=== PATIENT | female | born 1935 | race Caucasian/White ===

== ENCOUNTER 2018-09-21 15:17 | Emergency (ER) | payer OTHER ==
[2018-09-21 17:11] LABS: Basophils % 0.7 % (0-1.3); Hematocrit 30.5 % (36.0-45.0); Lymphocytes % 25.6 % (15.3-44.8); MPV 7.5 fL (7.6-11.3); RBC Red Blood Cell Count 3.49 M/uL (3.86-4.86)
[2018-09-21 17:35] LABS: Potassium 3.8 mmol/L (3.5-5.1)
--- NOTE | 2018-09-21 18:22 | RAD REPORT ---
EXAM DESCRIPTION: Cm Irving And Prashanth (2 Views)09/21/2018 6:08 pm CLINICAL HISTORY: Cough COMPARISON: 2017 FINDINGS: Lungs are moderately hyperaerated The lungs appear clear of acute infiltrate. The heart is normal size IMPRESSION: COPD without visualization acute abnormality
--- NOTE | 2018-09-21 18:24 | ER ---
Nurse's Notes [facility] Name: Camilla Hutchison Age: 83 yrs Sex: Female : 1935 Arrival Date: 09/21/2018 Time: 15:31 Bed 13 Private MD: Jin Schwarz Diagnosis: Influenza due to certain identified influenza viruses-Influenza B Presentation: 09/21 15:40 Presenting complaint: SOB, chills, and night sweats x 4 days. Transition of care: hb patient was not received from another setting of care. Onset of symptoms was September 18, 2018. Risk Assessment: Do you want to hurt yourself or someone else? Patient reports no desire to harm self or others. Initial Sepsis Screen: Does the patient meet any 2 criteria? No. Patient's initial sepsis screen is negative. Does the patient have a suspected source of infection? No. Patient's initial sepsis screen is negative. Care prior to arrival: None. 15:40 Method Of Arrival: Ambulatory hb 15:40 Acuity: EUGENIO 3 hb Triage Assessment: 16:38 General: Appears in no apparent distress. uncomfortable, Behavior is calm, cooperative, hj appropriate for age. Respiratory: Reports shortness of breath Onset: The symptoms/episode began/occurred the patient has mild shortness of breath. Historical: - Allergies: 15:42 Iodinated Contrast Media - IV Dye; hb 15:42 Levaquin; hb 15:42 PENICILLINS; hb 15:42 Sulfa (Sulfonamide Antibiotics); hb - Home Meds: 17:00 bp medication she takes only if sbp > 145 [Active]; hj - PMHx: 17:00 Hypertension; hj - PSHx: 17:00 Unable to obtain; hj - Immunization history:: Adult Immunizations up to date. - Social history:: Smoking status: Patient/guardian denies using tobacco, Patient/guardian denies using alcohol. - Ebola Screening: : Patient negative for fever greater than or equal to 101.5 degrees Fahrenheit, and additional compatible Ebola Virus Disease symptoms Patient denies exposure to infectious person Patient denies travel to an Ebola-affected area in the 21 days before illness onset. Screenin:38 Abuse screen: Denies threats or abuse. Denies injuries from another. Nutritional hj screening: No deficits noted. Tuberculosis screening: No symptoms or risk factors identified. Fall Risk None identified. Assessment: 16:38 Pain: Denies pain. Cardiovascular: Rhythm is. Respiratory: Airway is patent Respiratory hj effort is even, unlabored, Respiratory pattern is regular, symmetrical, 17:18 Reassessment: Patient and/or family updated on plan of care and expected duration. Pain hj level reassessed. Patient is alert, oriented x 3, equal unlabored respirations, skin warm/dry/pink. awaiting results and POC;. 18:17 Reassessment: Patient and/or family updated on plan of care and expected duration. Pain hj level reassessed. Patient is alert, oriented x 3, equal unlabored respirations, skin warm/dry/pink. awaiting POC; Patient states feeling better. Patient states symptoms have improved. Vital Signs: 15:41 BP 183 / 69; Pulse 87; Resp 20; Temp 97.8; Pulse Ox 100% on R/A; Weight 59.87 kg; hb Height 5 ft. 3 in. (160.02 cm); Pain 0/10; 17:00 BP 182 / 95; Pulse 81; Resp 18; Pulse Ox 100% on R/A; hj 18:16 BP 178 / 70; Pulse 84; Resp 18; Pulse Ox 100% on R/A; hj 15:41 Body Mass Index 23.38 (59.87 kg, 160.02 cm) hb ED Course: 15:31 Patient arrived in ED. mr 15:31 Jin Schwarz MD is Private Physician. mr 15:41 Triage completed. hb 15:41 Arm band placed on. hb 16:32 Kulwinder Felder, KATHYA is Primary Nurse. hj 16:37 Mio Corado NP is PHCP. pm1 16:37 Fidel Rush MD is Attending Physician. pm1 16:39 Patient has correct armband on for positive identification. Placed in gown. Bed in low hj position. Call light in reach. Side rails up X 1. Adult w/ patient. 17:05 Initial lab(s) drawn, by me, sent to lab. Inserted saline lock: 22 gauge in left hj antecubital area, using aseptic technique. Blood collected. 18:06 Chest Pa And Lat (2 Views) XRAY In Process Unspecified. EDMS 18:30 No provider procedures requiring assistance completed. IV discontinued, intact, hj bleeding controlled, No redness/swelling at site. Pressure dressing applied. Administered Medications: No medications were administered Outcome: 18:22 Discharge ordered by MD. pm1 18:30 Discharged to home ambulatory, with family. 18:30 Condition: stable 18:30 Discharge instructions given to patient, family, Instructed on discharge instructions, follow up and referral plans. medication usage, Demonstrated understanding of instructions, follow-up care, medications, Prescriptions given X 2. 18:33 Patient left the ED. Signatures: Dispatcher [employer] KISHANUT Elham Prater Henry RN RN Mio Corado, MAINTENANCE AND ENGINEERING MANAGER MAINTENANCE AND ENGINEERING MANAGER pm1 Pearl Dillon, KATHYA RN hb Corrections: (The following items were deleted from the chart) 15:42 15:40 Presenting complaint: SOB, chills, and night sweats x 4 days hb hb
--- NOTE | 2018-09-21 18:24 | EDPHYS ---
Physician Documentation [facility] Name: Camilla Hutchison Age: 83 yrs Sex: Female : 1935 Arrival Date: 09/21/2018 Time: 15:31 Bed 13 Private MD: Jin Schwarz ED Physician Fidel Rush HPI: 09/21 18:05 This 83 yrs old Female presents to ER via Ambulatory with complaints of Cough.pm1 18:05 The patient or guardian reports cough, difficulty breathing. Onset: The pm1 symptoms/episode began/occurred 4 day(s) ago. Severity of symptoms: in the emergency department the symptoms are actually worse. 18:05 Associated signs and symptoms: Pertinent positives: subjective fever, Pertinent pm1 negatives: chest pain, diarrhea, nausea, sore throat, vomiting. The patient has been recently seen by a physician: the patient's primary care provider, with similar presenting complaints. Patient with cough, congestion, runny nose that resolved with Claritin 4 days ago. Symptoms resolved then returned yesterday. Patient saw PCP on , had labs drawn. No chest x-ray. Historical: - Allergies: 15:42 Iodinated Contrast Media - IV Dye; hb 15:42 Levaquin; hb 15:42 PENICILLINS; hb 15:42 Sulfa (Sulfonamide Antibiotics); hb - Home Meds: 17:00 bp medication she takes only if sbp > 145 [Active]; hj - PMHx: 17:00 Hypertension; hj - PSHx: 17:00 Unable to obtain; hj - Immunization history:: Adult Immunizations up to date. - Social history:: Smoking status: Patient/guardian denies using tobacco, Patient/guardian denies using alcohol. - Ebola Screening: : Patient negative for fever greater than or equal to 101.5 degrees Fahrenheit, and additional compatible Ebola Virus Disease symptoms Patient denies exposure to infectious person Patient denies travel to an Ebola-affected area in the 21 days before illness onset. ROS: 18:12 Eyes: Negative for injury, pain, redness, and discharge, Neck: Negative for injury, pm1 pain, and swelling, Cardiovascular: Negative for chest pain, palpitations, and edema. 18:12 Abdomen/GI: Negative for abdominal pain, nausea, vomiting, diarrhea, and constipation, Back: Negative for injury and pain, MS/Extremity: Negative for injury and deformity, Skin: Negative for injury, rash, and discoloration, Neuro: Negative for headache, weakness, numbness, tingling, and seizure. 18:12 Constitutional: Positive for chills, fever, Negative for poor PO intake. 18:12 ENT: Positive for sinus congestion, Negative for drainage from ear(s), ear pain, sore throat. 18:12 Respiratory: Positive for cough, shortness of breath, Negative for wheezing. Exam: 18:12 Constitutional: This is a well developed, well nourished patient who is awake, alert, pm1 and in no acute distress. Head/Face: Normocephalic, atraumatic. Eyes: Pupils equal round and reactive to light, extra-ocular motions intact. Lids and lashes normal. Conjunctiva and sclera are non-icteric and not injected. Cornea within normal limits. Periorbital areas with no swelling, redness, or edema. ENT: Nares patent. No nasal discharge, no septal abnormalities noted. Tympanic membranes are normal and external auditory canals are clear. Oropharynx with no redness, swelling, or masses, exudates, or evidence of obstruction, uvula midline. Mucous membranes moist. Neck: Trachea midline, no thyromegaly or masses palpated, and no cervical lymphadenopathy. Supple, full range of motion without nuchal rigidity, or vertebral point tenderness. No Meningismus. Chest/axilla: Normal chest wall appearance and motion. Nontender with no deformity. No lesions are appreciated. Cardiovascular: Regular rate and rhythm with a normal S1 and S2. No gallops, murmurs, or rubs. Normal PMI, no JVD. No pulse deficits. Respiratory: Lungs have equal breath sounds bilaterally, clear to auscultation and percussion. No rales, rhonchi or wheezes noted. No increased work of breathing, no retractions or nasal flaring. Abdomen/GI: Soft, non-tender, with normal bowel sounds. No distension or tympany. No guarding or rebound. No evidence of tenderness throughout. Back: No spinal tenderness. No costovertebral tenderness. Full range of motion. Skin: Warm, dry with normal turgor. Normal color with no rashes, no lesions, and no evidence of cellulitis. MS/ Extremity: Pulses equal, no cyanosis. Neurovascular intact. Full, normal range of motion. 18:12 Neuro: Orientation: is normal, Motor: is normal, moves all fours. Vital Signs: 15:41 BP 183 / 69; Pulse 87; Resp 20; Temp 97.8; Pulse Ox 100% on R/A; Weight 59.87 kg; hb Height 5 ft. 3 in. (160.02 cm); Pain 0/10; 17:00 BP 182 / 95; Pulse 81; Resp 18; Pulse Ox 100% on R/A; hj 18:16 BP 178 / 70; Pulse 84; Resp 18; Pulse Ox 100% on R/A; hj 15:41 Body Mass Index 23.38 (59.87 kg, 160.02 cm) hb MDM: 16:37 Patient medically screened. pm1 18:21 Data reviewed: vital signs. Data interpreted: Pulse oximetry: on room air is 100 %. pm1 Interpretation: normal. Counseling: I had a detailed discussion with the patient and/or guardian regarding: the historical points, exam findings, and any diagnostic results supporting the discharge/admit diagnosis, lab results, radiology results, the need for outpatient follow up, to return to the emergency department if symptoms worsen or persist or if there are any questions or concerns that arise at home. 09/21 16:47 Order name: CBC with Diff; Complete Time: 17:26 pm1 09/21 16:47 Order name: BMP; Complete Time: 17:51 pm1 09/21 16:47 Order name: Chest Pa And Lat (2 Views) XRAY; Complete Time: 18:24 pm1 09/21 16:47 Order name: Flu; Complete Time: 17:51 pm1 Administered Medications: No medications were administered Disposition: 09/22 07:53 Co-signature as Attending Physician, Fidel Rush MD I agree with the assessment and wa plan of care. Disposition: 09/21/18 18:22 Discharged to Home. Impression: Influenza due to certain identified influenza viruses - Influenza B. - Condition is Stable. - Discharge Instructions: Influenza, Adult. - Prescriptions for Tamiflu 75 mg Oral Capsule - take 1 tablet by ORAL route every 12 hours for 5 days; 10 tablet. Albuterol Sulfate 90 mcg/actuation - inhale 1-2 puff by INHALATION route every 4-6 hours; 1 Inhaler. - Medication Reconciliation Form, Thank You Letter, Antibiotic Education, Prescription Opioid Use form. - Follow up: Emergency Department; When: As needed; Reason: Worsening of condition. Follow up: Private Physician; When: 2 - 3 days; Reason: Recheck today's complaints, Continuance of care, Re-evaluation by your physician. - Problem is new. - Symptoms have improved. Signatures: Dispatcher [employer] EDMS Kulwinder Felder RN RN Mio Corado, FRANCHESCA BUDGET CONTROLLER pm1 Pearl Dillon RN RN Fidel Rush MD MD wa Corrections: (The following items were deleted from the chart) 09/21 18:33 18:22 09/21/2018 18:22 Discharged to Home. Impression: Influenza due to certain hj identified influenza viruses - Influenza B. Condition is Stable. Forms are Medication Reconciliation Form, Thank You Letter, Antibiotic Education, Prescription Opioid Use. Follow up: Emergency Department; When: As needed; Reason: Worsening of condition. Follow up: Private Physician; When: 2 - 3 days; Reason: Recheck today's complaints, Continuance of care, Re-evaluation by your physician. Problem is new. Symptoms have improved. pm1
[2018-09-21 19:46] VITALS: TEMP 97.8; O2SAT 100
[2018-09-21 19:49] VITALS: BP 178/70
== END 2018-09-21 18:33 | disposition home or self-care (01) ==
LOC: ER 15:17
DX: J10.1 Influenza due to other identified influenza virus with other respiratory manifestations (principal); I10 Essential (primary) hypertension; Z88.0 Allergy status to penicillin; Z88.1 Allergy status to other antibiotic agents; Z88.2 Allergy status to sulfonamides; Z91.041 Radiographic dye allergy status
CPT/HCPCS: 36415; 71046; 80048; 85025; 87804; 99284

== ENCOUNTER 2020-01-30 15:51 | Observation (INO) | payer OTHER ==
--- OUTSIDE RECORDS SUMMARY | 2020-01-30 15:54 | XMS REPORT | Continuity of Care Document ---
:1935 Author Organization [facility] t Address [address] [place] [address] [address] [place] [address] Care Team Providers Name Role Phone Armando BRUCE P Attending Clinician Problems This patient has no known problems. Allergies, Adverse Reactions, Alerts This patient has no known allergies or adverse reactions. Medications This patient has no known medications. Procedures This patient has no known procedures. Encounters Start End Encounter Admission Attending Care Care Encounter Source Date/Time Date/Time Type Type Clinicians Facility Department ID 2020-01-21 2020-01-21 Office JAMILA Roberts [id number] 13:40:24 14:56:25 Visit Christopher AMBULATOR [id number] P Y [id number] 300 2019-12-23 2019-12-23 Outpatient [facility] [id number] [facility] 00:00:00 00:00:00 [facility] 2019-07-23 2019-07-23 Office JAMILA Roberts [id number] 13:50:00 14:00:00 Visit Christopher AMBULATOR [id number] P Y [id number] 2019-07-13 2019-07-13 JAMILA Bruno [id number] 13:51:37 14:54:24 Visit Christopher AMBULATOR [id number] P Y [id number] 300 2019-05-04 2019-05-04 Office JAMILA Roberts [id number] 13:21:00 13:31:00 Visit Jose AMBULATOR [id number] P Y [id number] 300 2019-04-20 2019-04-20 Office JAMILA Roberts [id number] 13:06:12 15:12:28 Visit Christcezarer AMBULATOR [id number] P Y [id number] Results This patient has no known results.
--- OUTSIDE RECORDS SUMMARY | 2020-01-30 15:54 | XMS REPORT | Summary of Care ---
:1935 Author Organization [facility] [place] [address] Care Team Providers Name Role Phone Jin Schwarz MD Primary Care Provider Reason for Visit Reason Comments Medical Concern Encounter Details Date Type Department Care Team Description 01/21/2020 Office Visit [facility], Haris Wylie edical Concern Medicine Urology [address] [place] [address] 10th Floor, [address], [place] [address] [place] [address] [phone] Allergies Active Allergy Reactions Severity Noted Date Comments Iodine 06/01/2019 Levofloxacin 06/01/2019 Nitrofurantoin Shortness Of Breath Low 05/28/2019 Penicillins Other (See Comments) 01/21/2020 Chest p ains Sulfa Antibiotics 06/01/2019 documented as of this encounter (statuses as of 01/21/2020) Medications Medication Sig Dispensed Refills Start End Date Status Date hydrochlorothiazide 12.5 0 Active MG TABS 0 D-Mannose 350 MG CAPS Take by 0 Active mouth. amoxicillin-clavulanate Take 1 Tab 14 Tab 0 01/20 Discontinued (AUGMENTIN) 875-125 MG by mouth 0 20 (*Therapy per tabletIndications: two times completed) Acute cystitis without daily. hematuria documented as of this encounter (statuses as of 01/21/2020) Active Problems Not on filedocumented as of this encounter (statuses as of 01/21/2020) Social History Tobacco Use Types Packs/Day Years Used Date Never Smoker Smokeless Tobacco: Never Used Alcohol Use Drinks/Week oz/Week Comments Never Alcohol Habits Answer Date Recorded How often do you have a drink containing alcohol? Never 08/03/2019 How many drinks containing alcohol do you have on a typical Not asked day when you are drinking? How often do you have six or more drinks on one occasion? No t asked Sex Assigned at Date Recorded Not on file documented as of this encounter Last Filed Vital Signs Vital Sign Reading Time Taken Comments Blood Pressure 209/82 01/21/2020 2:49 PM [employer]IGH [employer]CHO[employer] SCI[employer] Pulse 85 01/21/2020 2:49 PM H[employer] Temperature - - Respiratory Rate - - Oxygen Saturation - - Inhaled Oxygen Concentration - - Weight - - Height - - Body Mass Index - - documented in this encounter Progress Notes Pretty Corrales CMA - 01/21/2020 6:00 PM H[employer] SCI[employer] T[employer]OR HPI Review of Systems Constitutional: Negative. HENT: Negative. Eyes: Negative. Respiratory: Negative. Cardiovascular: Negative. Gastrointestinal: Negative. Endocrine: Negative. Genitourinary: Negative. Musculoskeletal: Negative. Skin: Negative. Allergic/Immunologic: Negative. Neurological: Negative. Hematological: Negative. Psychiatric/Behavioral: Negative. All other systems reviewed and are negative. Physical Exam Jose Cobian MD - 01/21/2020 1:50 PM CST Referring Physician No referring provider defined for this encounter. Patient Name: Camilla Hutchison :1935 [facility] ID#:[id number] a 83 y.o.year old femalewho present to me for evaluation of urinary retentino. Fora couple of years, felt as though she had urgency. Does have incomplete emptying.Had some epigastric/flank pain; evaluated with DONNELL w/ subsequent CT scan. Presents today for review of results. In the last month, SANDRA worsened. Now is leaking quite a bit with laugh/cough/sneeze/lifting. Had some before but less. Wakes up 3x a night for the last two weeks with soaked pads. CT scan shows extremely distended bladder, left sided diverticulum, and b/l hydronephrosis. Denies diabetes, neurological issues. Hysterectomy for uterine bleeding. Pt here for followup. Engle catheter placed last visit with 1600ml drained. RIGHT None LEFT None RENAL DIAGNOSIS/IMPRESSION(S) RIGHT Atrophic kidney LEFT Atrophic kidney Patient had a UDS on 06/01/19 Early first sensation, no detrusor overactivity, no leak with cough/valsalva, normal compliance. Pt filled to 314ml. Pt voided with pdetqmax 17cm and qmax 3ml/sec. Pt voided 134ml with pvr 181ml. Pt then refilled to 321ml and urethral catheter removed. Pt never felt normal urge to void but pressure in her abdomen. Pt could not void any further. Impression: Detrusor underactivity with incomplete emptying. Plan to do CIC and record residuals imp: detrusor underactivity with incomplete emptying plan: Teach CIC TID and record residuals Rx tamsulosin 0.4mg po qhs 07/13/19 - Patient now CIC TID with no issues - Per her logs patient CIC with volumes ranging from 300-1000 cc - Unable to tolerate the tamsulosin due to low blood pressures Pt here for followup. On CIC and scheduled for cystoscopy but urinalysis consistent with UTI. Pt here for cysto. Cystoscopy: normal urethra, normal uo's, bladder markedly trabeculated with several diverticuli, largest on left dome/lateral wall, no mucosal lesions. Assessment: 1. Recurrent UTI's 2. Incomplete emptying 3. Bladder diverticuli Plan: 1. Continue CIC TID--should be able to drain all diverticuli 2. RTC 6 months with pvr 01/21/2020 Pt here for followup. On CIC TID but also voids some on her own--in the morning. No UTI's since last visit. Past Surgical History: Procedure Laterality Date HX HYSTERECTOMY Medications Outpatient Medications Prior to Visit Medication Sig Dispense Refill [DISCONTINUED] amoxicillin-clavulanate Take 1 Tab by mouth two times daily. 14 Tab 0 D-Mannose Take by mouth. hydrochlorothiazide No facility-administered medications prior to visit. Current Outpatient Medications: D-Mannose 350 MG CAPS, Take by mouth., Disp: , Rfl: hydrochlorothiazide 12.5 MG TABS, , Disp: , Rfl: Social History Socioeconomic History Marital status: Spouse name: Not on file Number of children: Not on file Years of education: Not on file Highest education level: Not on file Occupational History Not on file Tobacco Use Smoking status: Never Smoker Smokeless tobacco: Never Used Substance and Sexual Activity Alcohol use: Never Drug use: Not on file Sexual activity: Not on file Other Topics Concerns: Not on file Social History Narrative Not on file Social Determinants of Health Financial Resource Strain: Difficulty of Paying Living Expenses: Not on file Food Insecurity: Worried About Running Out of Food in the Last Year: Not on file Ran Out of Food in the Last Year: Not on file Transportation Needs: Lack of Transportation (Medical): Not on file Lack of Transportation (Non-Medical): Not on file Physical Activity: Days of Exercise per Week: Not on file Minutes of Exercise per Session: Not on file Stress: Feeling of Stress : Not on file Social Connections: Frequency of Communication with Friends and Family: Not on file Frequency of Social Gatherings with Friends and Family: Not on file Attends Congregational Services: Not on file Active Member of Clubs or Organizations: Not on file Attends Club or Organization Meetings: Not on file Marital Status: Not on file Intimate Partner Violence: Fear of Current or Ex-Partner: Not on file Emotionally Abused: Not on file Physically Abused: Not on file Sexually Abused: Not on file family history includes Cancer in her brother, father, sister, and sister; Cirrhosis in her mother. Allergies Allergen Reactions Iodine Levofloxacin Penicillins Other (See Comments) Chest pains Sulfa Antibiotics Macrobid [Nitrofurantoin] Shortness Of Breath Review of Systems: Constitutional: Negative. HENT: Negative. Eyes: Negative. Respiratory: Negative. Cardiovascular: Negative. Gastrointestinal: Negative. Endocrine: Negative. Genitourinary: Negative. Musculoskeletal: Negative. Skin: Negative. Allergic/Immunologic: Negative. Neurological: Negative. Hematological: Negative. Psychiatric/Behavioral: Negative. All other systems reviewed and are negative. Physical Exam: Vitals: see in note above GENERAL: Well developed, well nourished, in no acute distress HEAD: Normocephalic and atraumatic CHEST Regular respiratory rate NEURO: CARSON well. Patient alert and oriented x3. PSYCH: Alert and cooperative; normal mood and affect; normal attention span and concentration Most Recent Labs: No results found for this or any previous visit (from the past 4032 hour(s)). Most Recent Imaging: No images are attached to the encounter. Assessment: 1. Incomplete emptying Plan: 1. Continue CIC TID 2. RTC 1yr--discussed interstim ick Tello - 01/21/2020 1:48 PM CSTpvr documented in this encounter Plan of Treatment Health Maintenance Due Date Last Done Comments TETANUS SHOT (ADULT) 09/04/1950 ZOSTER VACCINE (1 of 2) 09/04/1985 MEDICARE AWV (Initial) 08/17/2000 FALL SCREEN 09/04/2000 OSTEOPOROSIS SCREENING 09/04/2000 PNEUMOVAX >=65 (PPSV23) 09/04/2000 FLU VACCINE > 6 MONTHS 09/18/2019 HPV VACCINE Aged Out No longer eligib kasia based on patient's age to complete this topic documented as of this encounter Results Not on filedocumented in this encounter Visit Diagnoses Diagnosis Incomplete bladder emptying - Primary documented in this encounter Insurance Payer Benefit Plan / Subscriber ID Effective Phone Address T ype Group Dates MEDICARE MEDICARE PART [id number] 2000-Prese [address] A & B - [id number] [place] [address] [facility] INDEMNITY - [id number] 2001-Prese [address] PPO Formerly [facility] [id number] [place] [id number] documented as of this encounter
--- OUTSIDE RECORDS SUMMARY | 2020-01-30 15:54 | XMS REPORT ---
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 Problem Carpal tunnel G56.01 Active [id number] syndrome of right wrist ALLERGIES Allergen (clinical Drug/Non Drug Reaction Allergy Type Onset Date S tatus drug ingredient) Allergy documented on EMR levaquin Unknown Non Drug Allergy Active pcn Unknown Non Drug Allergy Active iodine Unknown Non Drug Allergy Active sulfa Unknown Non Drug Allergy Active ENCOUNTERS from 1935 to 2020-01-03 Encounter Location Date Provider Diagnosis [facility] [address] Dec, Herberth Barone Pain in joint of right [facility] [address] wrist M25.53 1 ; Primary [place], [place] osteoarthritis of first [address] carpometacarpal joint of right hand M 18.11 ; Ganglion cyst o f volar aspect of wrist M67.439 and Carpal tunn el syndrome of rig ht wrist G56.01 IMMUNIZATIONS Vaccine Route Administration Date Status Lidocaine Unknown Dec 23, 2019 Administered Depo-Medrol (Methylprednisolone) 40mg Unknown Dec 22 20 Administered SOCIAL HISTORY Tobacco Use: Social History Observation Description Date Details (start date - stop date) Never Smoker Sex Assigned At : Social History Observation Description Sex Assigned At Unknown Alcohol Screen Question Answer Notes Did you have a drink containing alcohol in the past year? No Points 0 Interpretation Negative Tobacco Use/Smoking Question Answer Notes Are you a never smoker Additional Findings: Tobacco Non-User Current non-smoker REASON FOR REFERRAL No Information VITAL SIGNS Height 62.5 in Dec, Weight 117 lbs Dec, Temperature 97.5 degrees Fahrenheit Dec, BMI 21.06 kg/m2 Dec, Blood pressure systolic 142 mm Hg Dec, Blood pressure diastolic 82 mm Hg Dec, MEDICATIONS Medication SIG (Take, Route, Notes Start Date End Date Status Frequency, Duration) Nitrofurantoin Monohyd No t-Taking Macro Diclofenac Sodium 1 % apply 2 grams to Dec, Active affected area as needed Transdermal Alfuzosin HCl ER Not-Taki ng Tamsulosin HCl Not-Taking Claritin Active Hydrochlorothiazide Activ e Amoxicillin-Pot Clavulanate Not-Taking Omeprazole Not-Taking Ciprofloxacin HCl Not-Noel ing Nitrofurantoin Macrocrystal Not-Taking D-Mannose Active PROCEDURES No Information RESULTS No Results REASON FOR VISIT NEW PT: RT WRIST(KRELL) MEDICAL (GENERAL) HISTORY Type Description Date Medical History HTN Medical History bladder problems Medical History allergies Surgical History hysterectomy Surgical History cataract surgery Goals Section No Information Health Concerns No Information MEDICAL EQUIPMENT No Information MENTAL STATUS No Information FUNCTIONAL STATUS No Information ASSESSMENTS Encounter Date Diagnosis Assessment Notes Treatment Notes Treatm ent Clinical Notes Dec, Pain in joint of right wrist (ICD-10 - M25.531) Dec, Primary -pain appears to be osteoarthritis of mainly from her 1st first carpometacarpal CMC joint joint of right hand -proceed with (ICD-10 - M18.11) conservative treatment measures including corticosteroid injection -underwent injection without complication -ice and rest hand for 24 hours Dec, Ganglion cyst of -no significant volar aspect of wrist pain/tenderness (ICD-10 - M67.439) from cyst at this time -proceed with conservative treatment measures at this time -f/u in 6 weeks for reevaluation Dec, Carpal tunnel -proceed with syndrome of right conservative wrist (ICD-10 - treatment measures G56.01) including night splint -f/u in 6 weeks for reevaluation PLAN OF TREATMENT Medication Medication Name Sig Start Date Stop Date Diclofenac Sodium 1 % apply 2 grams to affected area as Dec, needed Transdermal Treatment Notes Assessment Notes Clinical Notes Primary osteoarthritis of first -pain appears to be mainly f rom carpometacarpal joint of right hand her 1st CMC joint-procee d with conservative treatment measures including corticosteroid injection-underwent injection without complication-ice and rest hand for 24 hours Ganglion cyst of volar aspect of -no significant pain/tender ness wrist from cyst at this time-proceed with conservative treatment measures at this time-f/u in 6 weeks for reevaluation Carpal tunnel syndrome of right -proceed with conservative wrist treatment measures including night splint-f/u in 6 weeks for reevaluation Treatment Notes Test Name Order Date X-RAY EXAM WRIST MIN 3 VIEWS ([id number]) 2020-01-03 Next Appt Details patient will call to schedule Reason: Insurance Providers Payer Name Payer Address Payer Insured Patient Coverage Cover age Phone Name Relationship to Start Date End Date Insured MEDICARE Attn Part B [id number] Alfreda Hutchison self [employer] [id number] [facility] [address] [employer]IG[employer] [address] [phone] Alfreda Hutchison self [facility] [place] [address] [id number] [place]
[2020-01-30] MEDS ORDERED: NA CHLORIDE 0.9% 1,000 ML ONE (16:51)
[2020-01-30] MEDS ORDERED: METOPROLOL TARTRATE 5 MG/5 ML INJ IV ONE (16:51)
[2020-01-30] MEDS ORDERED: METOPROLOL TAR 50 MG TAB ONE (16:51)
[2020-01-30] MEDS ORDERED: ASPIRIN EC 81 MG TAB PO ONE (16:51)
[2020-01-30] MEDS ORDERED: FAMOTIDINE 20 MG/2 ML VIAL IV ONE (16:52)
[2020-01-30 16:55] LABS: Protime INR 0.99
[2020-01-30 17:03] LABS: Absolute Lymphocytes (CBC) 1.7 K/uL (0.7-4.9); Basophils % 0.7 % (0-1.3); Lymphocytes % 18.4 % (15.3-44.8); MPV 7.3 fL (7.6-11.3); RBC Red Blood Cell Count 3.29 M/uL (3.86-4.86)
[2020-01-30 17:14] LABS: ALT/SGPT 10 U/L (12-78); AST/SGOT 22 U/L (15-37); Albumin 3.3 g/dL (3.4-5.0); Alkaline Phosphatase 80 U/L (45-117); BUN Blood Urea Nitrogen 14 mg/dL (7-18); Bicarbonate 25 mmol/L (21-32); Bilirubin Direct 0.1 mg/dL (0-0.2); Bilirubin Total 0.5 mg/dL (0.2-1.0); Glucose Level 95 mg/dL (74-106); Lipase 178 U/L (73-393); Magnesium 2.4 mg/dL (1.8-2.4); NT PRO-BNP 2114 pg/mL (<450); Potassium 3.9 mmol/L (3.5-5.1); Protein, Total 7.9 g/dL (6.4-8.2); Sodium Level 136 mmol/L (136-145); Troponin (Emerg Dept Use Only) < 0.02 ng/mL (0.0-0.045)
--- NOTE | 2020-01-30 17:22 | RAD REPORT ---
EXAM DESCRIPTION: RAD - Chest Single View - 01/30/2020 4:58 pm CLINICAL HISTORY: CHEST PAIN COMPARISON: Two view chest September 2018 TECHNIQUE: AP portable chest image was obtained 01/30/2020 4:58 pm . FINDINGS: Chronic interstitial pattern is present matching comparison. No peripheral mass or consoli dation. No failure or or significant volume overload. Chronic interstitial pattern could mask early e aileen or infiltrate. Heart and vasculature are normal. No measurable pleural effusion and no pneumothorax. No acute bony abnormality seen. No acute aortic findings suspected. IMPRESSION: No mass or consolidations seen. Chronic interstitial pattern, similar to comparison, could potentially mask early edema or infiltrate .
--- NOTE | 2020-01-30 17:30 | ER ---
Nurse's Notes [facility] Name: Camilla Hutchison Age: 84 yrs Sex: Female : 1935 Arrival Date: 01/30/2020 Time: 15:52 Bed 5 Private MD: Jin Schwarz Diagnosis: Palpitations;Chest pain, unspecified;Essential (primary) hypertension;Anemia, unspecified;Unspecified kidney failure Presentation: 01/29 16:03 Chief complaint: Patient states: L arm pain x 2 weeks, Denies injury. High BP 178/80 ca1 and then breakout in sweats 1 hr PCT. Coronavirus screen: Client denies travel out of the [place] in the last 14 days. At this time, the client does not indicate any symptoms associated with coronavirus-19. Ebola Screen: Patient negative for fever greater than or equal to 101.5 degrees Fahrenheit, and additional compatible Ebola Virus Disease symptoms Patient denies exposure to infectious person. Patient denies travel to an Ebola-affected area in the 21 days before illness onset. No symptoms or risks identified at this time. Initial Sepsis Screen: Does the patient meet any 2 criteria? No. Patient's initial sepsis screen is negative. Does the patient have a suspected source of infection? No. Patient's initial sepsis screen is negative. Risk Assessment: Do you want to hurt yourself or someone else? Patient reports no desire to harm self or others. Onset of symptoms was January 30, 2020. 16:03 Method Of Arrival: Ambulatory ca1 16:03 Acuity: EUGENIO 2 ca1 Historical: - Allergies: 16:05 Iodinated Contrast Media - IV Dye; ca1 16:05 PENICILLINS; ca1 16:05 Sulfa (Sulfonamide Antibiotics); ca1 16:05 Levaquin; ca1 - PMHx: 16:05 Hypertension; ca1 - PSHx: 16:05 Unable to obtain; ca1 - Immunization history:: Adult Immunizations up to date, Pneumococcal vaccine status is unknown, Flu vaccine is not up to date. Patient has never been vaccinated. - Social history:: Smoking status: Patient denies any tobacco usage or history of. - Family history:: not pertinent. Screenin:43 Abuse screen: Denies threats or abuse. Denies injuries from another. Nutritional iw screening: No deficits noted. Tuberculosis screening: No symptoms or risk factors identified. Fall Risk None identified. Assessment: 16:44 General: Appears in no apparent distress. comfortable, Behavior is calm, cooperative. iw Pain: Complains of pain in left trapezius Pain radiates to chest. Neuro: Level of Consciousness is awake, alert, obeys commands, Oriented to person, place, time, situation. Cardiovascular: Reports chest pain, Patient's skin is warm and dry. Respiratory: Respiratory effort is even, unlabored, Respiratory pattern is regular, symmetrical. Derm: Skin is intact, is healthy with good turgor. Musculoskeletal: Range of motion: intact in all extremities. 17:12 Reassessment: Patient appears in no apparent distress at this time. Patient and/or iw family updated on plan of care and expected duration. Pain level reassessed. Patient is alert, oriented x 3, equal unlabored respirations, skin warm/dry/pink. 18:05 Reassessment: Patient appears in no apparent distress at this time. pt states she seems iw to be hallucinating when she closed her eyes she sees an old curtain and an animal that is coming at her. 18:45 Reassessment: Patient appears in no apparent distress at this time. Patient and/or iw family updated on plan of care and expected duration. Pain level reassessed. Patient is alert, oriented x 3, equal unlabored respirations, skin warm/dry/pink. pt states she is no longer seeing things. 19:46 Reassessment: free of chest pain. GCS 15. Patient states feeling better. Patient states rv symptoms have improved. Neuro: Level of Consciousness is awake, alert, obeys commands, Oriented to person, place, time, situation. Cardiovascular: Patient's skin is warm and dry. Rhythm is regular. Respiratory: Airway is patent Respiratory effort is even, unlabored. Vital Signs: 16:03 BP 230 / 88; Pulse 90; Resp 16 S; Temp 97(TE); Pulse Ox 99% on R/A; Weight 53.07 kg ca1 (R); Height 5 ft. 2 in. (157.48 cm) (R); 16:32 BP 204 / 79; Pulse 82; Resp 17; Pulse Ox 100% ; jl7 17:12 BP 196 / 74; Pulse 70; Resp 16; Pulse Ox 98% on R/A; iw 17:25 BP 201 / 73; Pulse 68; Resp 17; Pulse Ox 98% ; jl7 18:05 BP 200 / 86; Pulse 68; Resp 16; Pulse Ox 98% on R/A; iw 19:45 BP 170 / 64; Pulse 75; Resp 16; Temp 97.5; Pulse Ox 100% on R/A; rv 16:03 Body Mass Index 21.40 (53.07 kg, 157.48 cm) ca1 ED Course: 15:52 Patient arrived in ED. ag5 15:53 Jin Schwarz MD is Private Physician. ag5 16:00 Gary Salazar MD is Attending Physician. marvin 16:04 Triage completed. ca1 16:05 Arm band placed on right wrist. ca1 16:17 Hemalatha Xavier, KATHYA is Primary Nurse. iw 16:43 Initial lab(s) drawn, by me, sent to lab. Inserted saline lock: 22 gauge in right iw antecubital area, using aseptic technique. Blood collected. 16:58 XRAY Chest (1 view) In Process Unspecified. EDMS 17:23 Toby Cifuentes DO is Hospitalizing Provider. [facility] 19:59 No provider procedures requiring assistance completed. IV is patent, with fluids rv infusing freely, Patient admitted, IV remains in place. 20:00 Patient has correct armband on for positive identification. Pulse ox on. rv Administered Medications: 16:43 Drug: Lopressor 2.5 mg Route: IVP; Site: right antecubital; jl7 19:52 Follow up: Response: No adverse reaction rv 16:43 Drug: NS 0.9% 1000 ml Route: IV; Rate: 75 ml/hr; Site: right antecubital; jl7 19:51 Follow up: IV Status: Infusion continued upon admission rv 16:45 Drug: Lopressor (metoprolol TARTRATE) 50 mg Route: PO; jl7 19:51 Follow up: Response: No adverse reaction rv 16:45 Drug: Aspirin 162 mg Route: PO; jl7 19:51 Follow up: Response: No adverse reaction rv 16:46 Drug: Pepcid 20 mg Route: IVP; Site: right antecubital; jl7 19:51 Follow up: Response: No adverse reaction rv 17:15 Drug: Lopressor 2.5 mg Route: IVP; Site: right antecubital; jl7 19:52 Follow up: Response: No adverse reaction rv 17:30 Drug: Norvasc 5 mg Route: PO; iw 19:51 Follow up: Response: No adverse reaction rv 19:17 Drug: Lovenox 50 mg Route: Sub-Q; Site: abdomen; rv 19:51 Follow up: Response: No adverse reaction rv 19:17 Drug: Rocephin 1 grams Route: IV; Rate: per protocol; Site: right antecubital; rv 19:50 Follow up: IV Status: Completed infusion rv 19:50 Follow up: Response: No adverse reaction rv 19:18 Drug: hydrALAZINE 5 mg Route: IV; Rate: calculated rate; Site: right antecubital; rv 19:47 Follow up: IV Status: Completed infusion rv Outcome: 17:29 Decision to Hospitalize by Provider. marvin 19:59 Admitted to Tele accompanied by tech, via stretcher, room 403, Other SBAR, EKG Report rv called to FRANSISCO RASHEED 19:59 Condition: good 20:00 Patient left the ED. rv Signatures: Dispatcher [employer] EDGary Arnold MD MD cha Williams, Irene RN KATHYA iw Douglas Wolf RN RN jl7 Salvador Green RN RN rv Acob, Cheryl RN RN ca1 Vivi Jean Baptiste [place]
--- NOTE | 2020-01-30 17:30 | EDPHYS ---
Physician Documentation [facility] Name: Camilla Hutchison Age: 84 yrs Sex: Female : 1935 Arrival Date: 01/30/2020 Time: 15:52 Bed 5 Private MD: Jin Schwarz ED Physician Gary Salazar HPI: 01/29 16:33 This 84 yrs old Female presents to ER via Ambulatory with complaints of High marvin Blood Pressure, Arm Pain. 16:33 The patient has elevated blood pressure and discovered this at home. Onset: The marvin symptoms/episode began/occurred 2 day(s) ago. Modifying factors: The symptoms are aggravated by activity, The symptoms are alleviated by remaining still. Associated signs and symptoms: Pertinent positives: chest pain, weakness. Severity of symptoms: At its worst the blood pressure was moderate, in the emergency department the blood pressure is unchanged. The patient has not experienced similar symptoms in the past. Historical: - Allergies: 16:05 Iodinated Contrast Media - IV Dye; ca1 16:05 PENICILLINS; ca1 16:05 Sulfa (Sulfonamide Antibiotics); ca1 16:05 Levaquin; ca1 - PMHx: 16:05 Hypertension; ca1 - PSHx: 16:05 Unable to obtain; ca1 - Immunization history:: Adult Immunizations up to date, Pneumococcal vaccine status is unknown, Flu vaccine is not up to date. Patient has never been vaccinated. - Social history:: Smoking status: Patient denies any tobacco usage or history of. - Family history:: not pertinent. ROS: 16:33 Constitutional: Negative for fever, chills, and weight loss, Eyes: Negative for injury, marvin pain, redness, and discharge, ENT: Negative for injury, pain, and discharge, Neck: Negative for injury, pain, and swelling, Respiratory: Negative for shortness of breath, cough, wheezing, and pleuritic chest pain, Abdomen/GI: Negative for abdominal pain, nausea, vomiting, diarrhea, and constipation, Back: Negative for injury and pain, : Negative for injury, bleeding, discharge, and swelling, MS/Extremity: Negative for injury and deformity, Skin: Negative for injury, rash, and discoloration, Neuro: Negative for headache, weakness, numbness, tingling, and seizure. 16:33 Cardiovascular: Positive for chest pain, of the chest, palpitations. 16:33 Back: Positive for pain at rest, of the left trapezius. Exam: 16:33 Constitutional: This is a well developed, well nourished patient who is awake, alert, marvin and in no acute distress. Head/Face: Normocephalic, atraumatic. Eyes: Pupils equal round and reactive to light, extra-ocular motions intact. Lids and lashes normal. Conjunctiva and sclera are non-icteric and not injected. Cornea within normal limits. Periorbital areas with no swelling, redness, or edema. ENT: Nares patent. No nasal discharge, no septal abnormalities noted. Tympanic membranes are normal and external auditory canals are clear. Oropharynx with no redness, swelling, or masses, exudates, or evidence of obstruction, uvula midline. Mucous membranes moist. Neck: Trachea midline, no thyromegaly or masses palpated, and no cervical lymphadenopathy. Supple, full range of motion without nuchal rigidity, or vertebral point tenderness. No Meningismus. Chest/axilla: Normal chest wall appearance and motion. Nontender with no deformity. No lesions are appreciated. Cardiovascular: Regular rate and rhythm with a normal S1 and S2. No gallops, murmurs, or rubs. Normal PMI, no JVD. No pulse deficits. Respiratory: Lungs have equal breath sounds bilaterally, clear to auscultation and percussion. No rales, rhonchi or wheezes noted. No increased work of breathing, no retractions or nasal flaring. Abdomen/GI: Soft, non-tender, with normal bowel sounds. No distension or tympany. No guarding or rebound. No evidence of tenderness throughout. Back: No spinal tenderness. No costovertebral tenderness. Full range of motion. Skin: Warm, dry with normal turgor. Normal color with no rashes, no lesions, and no evidence of cellulitis. MS/ Extremity: Pulses equal, no cyanosis. Neurovascular intact. Full, normal range of motion. Neuro: Awake and alert, GCS 15, oriented to person, place, time, and situation. Cranial nerves II-XII grossly intact. Motor strength 5/5 in all extremities. Sensory grossly intact. Cerebellar exam normal. Normal gait. Psych: Awake, alert, with orientation to person, place and time. Behavior, mood, and affect are within normal limits. 16:33 Musculoskeletal/extremity: ROM: no acute changes, intact in all extremities, full active range of motion, full passive range of motion, Circulation is intact in all extremities. Sensation intact. Tendon exam: specific tendon testing normal through active and passive range of motion DVT Exam: No signs of deep vein thrombosis. no pain, no swelling, no tenderness, negative Homans' sign noted on exam, no appreciated bluish discoloration, no erythema, no increased warmth. 16:42 ECG was reviewed by the Attending Physician. [facility] Vital Signs: 16:03 BP 230 / 88; Pulse 90; Resp 16 S; Temp 97(TE); Pulse Ox 99% on R/A; Weight 53.07 kg ca1 (R); Height 5 ft. 2 in. (157.48 cm) (R); 16:32 BP 204 / 79; Pulse 82; Resp 17; Pulse Ox 100% ; jl7 17:12 BP 196 / 74; Pulse 70; Resp 16; Pulse Ox 98% on R/A; iw 17:25 BP 201 / 73; Pulse 68; Resp 17; Pulse Ox 98% ; jl7 18:05 BP 200 / 86; Pulse 68; Resp 16; Pulse Ox 98% on R/A; iw 19:45 BP 170 / 64; Pulse 75; Resp 16; Temp 97.5; Pulse Ox 100% on R/A; rv 16:03 Body Mass Index 21.40 (53.07 kg, 157.48 cm) ca1 MDM: 16:00 Patient medically screened. [facility] 16:36 Differential diagnosis: hypertensive crisis, Malignant HTN. Data reviewed: vital signs, [facility] nurses notes, lab test result(s), EKG, radiologic studies, CT scan, plain films. Data interpreted: public safety officer: rate is 82 beats/min, rhythm is regular. Test interpretation: by ED physician or midlevel provider: ECG, plain radiologic studies. Counseling: I had a detailed discussion with the patient and/or guardian regarding: the historical points, exam findings, and any diagnostic results supporting the discharge/admit diagnosis, lab results, radiology results. 01/29 16:31 Order name: Basic Metabolic Panel [facility] 01/29 16:31 Order name: CBC with Diff [facility] 01/29 16:31 Order name: LFT's [facility] 01/29 16:31 Order name: Magnesium; Complete Time: 17:21 [facility] 01/29 16:31 Order name: NT PRO-BNP; Complete Time: 17:21 [facility] 01/29 16:31 Order name: PT-INR; Complete Time: 17:21 [facility] 01/29 16:31 Order name: Troponin (emerg Dept Use Only); Complete Time: 17:21 [facility] 01/29 16:31 Order name: Lipase; Complete Time: 17:21 [facility] 01/29 16:31 Order name: Urine Culture [facility] 01/29 16:32 Order name: Basic Metabolic Panel; Complete Time: 17:21 [facility] 01/29 17:51 Interpretation: Within normal limits. [facility] 01/29 16:32 Order name: CBC with Automated Diff; Complete Time: 17:21 [facility] 01/29 16:32 Order name: Liver (Hepatic) Function; Complete Time: 17:21 [facility] 01/29 18:38 Order name: Urine Dipstick--Ancillary (enter results) [facility] 01/29 18:45 Order name: Urine Dipstick-Ancillary; Complete Time: 18:46 [facility] 01/29 16:31 Order name: XRAY Chest (1 view); Complete Time: 17:46 [facility] 01/29 16:31 Order name: EKG; Complete Time: 16:32 [facility] 01/29 16:31 Order name: Cardiac monitoring; Complete Time: 16:47 [facility] 01/29 16:31 Order name: EKG - Nurse/Tech; Complete Time: 16:47 [facility] 01/29 16:31 Order name: IV Saline Lock; Complete Time: 16:47 [facility] 01/29 19:36 Order name: Urine Microscopic Only [facility] 01/29 16:31 Order name: Labs collected and sent; Complete Time: 16:47 [facility] 01/29 16:31 Order name: O2 Per Protocol; Complete Time: 16:47 [facility] 01/29 16:31 Order name: O2 Sat Monitoring; Complete Time: 16:47 [facility] EC:42 Rate is 80 beats/min. Rhythm is regular. QRS [place] is Normal. OK interval is normal. QRS marvin interval is normal. QT interval is normal. No Q waves. T waves are Normal. No ST changes noted. Clinical impression: NSR w/ Non-specific ST/T Changes and No evidence of ischemia. Interpreted by me. Reviewed by me. Administered Medications: 16:43 Drug: Lopressor 2.5 mg Route: IVP; Site: right antecubital; jl7 19:52 Follow up: Response: No adverse reaction rv 16:43 Drug: NS 0.9% 1000 ml Route: IV; Rate: 75 ml/hr; Site: right antecubital; jl7 19:51 Follow up: IV Status: Infusion continued upon admission rv 16:45 Drug: Lopressor (metoprolol TARTRATE) 50 mg Route: PO; jl7 19:51 Follow up: Response: No adverse reaction rv 16:45 Drug: Aspirin 162 mg Route: PO; jl7 19:51 Follow up: Response: No adverse reaction rv 16:46 Drug: Pepcid 20 mg Route: IVP; Site: right antecubital; jl7 19:51 Follow up: Response: No adverse reaction rv 17:15 Drug: Lopressor 2.5 mg Route: IVP; Site: right antecubital; jl7 19:52 Follow up: Response: No adverse reaction rv 17:30 Drug: Norvasc 5 mg Route: PO; iw 19:51 Follow up: Response: No adverse reaction rv 19:17 Drug: Lovenox 50 mg Route: Sub-Q; Site: abdomen; rv 19:51 Follow up: Response: No adverse reaction rv 19:17 Drug: Rocephin 1 grams Route: IV; Rate: per protocol; Site: right antecubital; rv 19:50 Follow up: IV Status: Completed infusion rv 19:50 Follow up: Response: No adverse reaction rv 19:18 Drug: hydrALAZINE 5 mg Route: IV; Rate: calculated rate; Site: right antecubital; rv 19:47 Follow up: IV Status: Completed infusion rv Disposition: 01/30/20 17:29 Hospitalization ordered by Toby Cifuentes for Observation. Preliminary diagnosis are Palpitations, Chest pain, unspecified, Essential (primary) hypertension, Anemia, unspecified, Unspecified kidney failure. - Bed requested for Telemetry/MedSurg (observation). - Status is Observation. rv - Condition is Fair. - Problem is new. - Symptoms have improved. Signatures: Dispatcher [employer] EDGary Arnold MD MD cha Williams, Irene, RN RN iw Camilo Gilbert em1 Kirit Martinez, VASCULAR ULTRASOUND TECHNOLOGIST-C VASCULAR ULTRASOUND TECHNOLOGIST-Cla1 Douglas Wolf RN RN jl7 Salvador Green RN RN rv Caity Garcia RN RN ca1 Corrections: (The following items were deleted from the chart) 18:58 17:29 Hospitalization Ordered by Toby Cifuentes DO for Observation. Preliminary em1 diagnosis is Palpitations; Chest pain, unspecified; Essential (primary) hypertension; Anemia, unspecified; Unspecified kidney failure. Bed requested for Telemetry/MedSurg (observation). Status is Observation. Condition is Fair. Problem is new. Symptoms have improved. marvin 20:00 18:58 01/30/2020 17:29 Hospitalization Ordered by Toby Cifuentes DO for Observation. rv Preliminary diagnosis is Palpitations; Chest pain, unspecified; Essential (primary) hypertension; Anemia, unspecified; Unspecified kidney failure. Bed requested for Telemetry/MedSurg (observation). Status is Observation. Condition is Fair. Problem is new. Symptoms have improved. em1
[2020-01-30] MEDS ORDERED: AMLODIPINE 5 MG TAB ONE (17:40)
[2020-01-30 18:45] LABS: Urine Blood 1+ (NEG); Urine Glucose NEGATIVE (NEG); Urine Protein NEGATIVE (NEG); Urine Specific Gravity 1.015 (1.005-1.030); Urine pH 7.5 (5.0-7.0)
[2020-01-30] MEDS ORDERED: CEFTRIAXONE/SWI 1gm 1 GM/10 ML SYR ONE (19:21)
[2020-01-30] MEDS ORDERED: HYDRALAZINE HCL 20 MG/ML VIAL ONE (19:21)
[2020-01-30] MEDS ORDERED: ENOXAPARIN 60 MG/0.6 ML SQ ONE (19:22)
--- NOTE | 2020-01-30 19:39 | P.HP ---
Certification for Inpatient Patient admitted to: Observation With expected LOS: <2 Midnights Patient will require the following post-hospital care: None Practitioner: I am a practitioner with admitting privileges, knowledge of patient current condition, hospital course, and medical plan of care. Services: Services provided to patient in accordance with Admission requirements found in Title 42 Section 412.3 of the Code of Federal Regulations Patient History Date of Service: 01/30/20 Primary Care Provider: Dr. Schwarz (covering for weekend) Reason for admission: Hypertensive urgency History of Present Illness: 84-year-old female with history of hypertension and chronic kidney disease presents to the emergency department for hypertension. Patient reports that she only takes hydrochlorothiazide as needed at home for hypertension is her blood pressure is greater than 140 but today she is walking around and [place] to feel like maybe her blood pressure was low, she became diaphoretic and decided to check her blood pressure. Blood pressure at home was only elevated to around 150/80. Patient also reports some left arm/shoulder pain over the course of the last couple of weeks but she believes is more musculoskeletal. Patient presented to the emergency department, initial blood pressure was markedly elevated 230/88. Patient was given in the emergency department metoprolol 50 p.o. Norvasc 5 p.o. in addition to Lopressor 5 mg IV. ED provider wishes to admit patient under observation for further evaluation and management. Labs relatively unremarkable, troponin negative creatinine 1.35 which is improved from previous visits, patient with history of anemia hemoglobin 9.6, hematocrit 28.0, MCV normal at 85.3. Patient also noted to have 2+ leukocytes in urine, was given Rocephin in the emergency department. Patient denies urinary symptoms this time, urine micro pending. When I saw the patient in the ER her blood pressure was still elevated around 200/60. Patient denies any chest pain or shortness of breath but does report some of left arm pain left shoulder pain. Allergies levofloxacin [From Levaquin] Allergy (Severe, Verified 05/30/16 21:19) Unknown Penicillins Allergy (Mild, Unverified 03/28/17 17:06) Unknown Sulfa (Sulfonamide Antibiotics) Allergy (Verified 05/30/16 21:19) Itching/Hives/Rash Iodine-Iodine Containing Allergy (Severe, Uncoded 05/30/16 21:19) Unknown Iodinated Co Allergy (Uncoded 08/28/16 03:19) Unknown Iodinated Contras Allergy (Uncoded 05/30/16 20:20) Unknown Iodinated Contrast- Allergy (Uncoded 01/05/17 14:12) Unknown IODINE; IODINE CONTAINING Allergy (Uncoded 07/08/13 18:28) Unknown Home Medications: Albuterol Sulfate [Proair Hfa] 8.5 gm IH TID PRN #1 hfa.aer.ad 05/31/16 traMADol HCL [Ultram*] 50 mg PO TID PRN #15 tab 05/31/16 - Past Medical/Surgical History Diabetic: No -: Pulmonary hypertension -: Osteoarthritis -: Chronic renal disease -: Anemia of chronic disease -: Lung scar -: Sinus allergies -: Hypertension -: Hysterectomy Psychosocial/ Personal History: She is of 60 years, she has 4 children. 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 - Family History Mother -: Other (see notes) (Alcoholism) Notes: cirrhosis; alcoholism Father -: Cancer (Lung cancer) Notes: lung cancer Brother -: Cancer (Throat cancer) Notes: throat cancer Sister -: Cancer Notes: leukemia - Social History Alcohol use: No CD- Drugs: No Caffeine use: Yes Place of Residence: Home Review of Systems 10-point ROS is otherwise unremarkable Musculoskeletal: Shoulder Pain, Arm Pain Physical Examination - Physical Exam General: Alert, In no apparent distress, Oriented x3 HEENT: Atraumatic, Normocephalic, PERRLA Neck: Supple Respiratory: Clear to auscultation bilaterally, Normal air movement Cardiovascular: No edema, Regular rate/rhythm, Normal S1 S2 Capillary refill: <2 Seconds Gastrointestinal: Normal bowel sounds, Soft and benign Musculoskeletal: No clubbing, No contractures, No erythema, No tenderness, No warmth Integumentary: No significant lesion, No tenderness/swelling, No erythema Neurological: Normal speech, Normal strength at 5/5 x4 extr, Normal tone, Sensation intact - Studies Laboratory Data (last 24 hrs) 01/30/20 16:40: PT 11.7, INR 0.99 01/30/20 16:40: WBC 9.1, Hgb 9.6 L, Hct 28.0 L, Plt Count 255 01/30/20 16:40: Sodium 136, Potassium 3.9, BUN 14, Creatinine 1.35 H, Glucose 95, Magnesium 2.4, Total Bilirubin 0.5, AST 22, ALT 10 L, Alkaline Phosphatase 80, Lipase 178 Assessment and Plan - Plan Assessment Hypertensive urgency with underlying primary hypertension CKD 3 Anemia of chronic disease Plan Hypertensive urgency with underlying primary hypertension: Trend troponins, monitor on telemetry. Starting on oral hypertensive agents. Cardiology consult in place. DVT prophylaxis Lovenox. Echocardiogram ordered. CKD 3: Renal function at baseline or slightly better, avoid NSAIDs, nephrotoxic agents, contrast. Anemia of chronic disease: Close to baseline hemoglobin, monitor daily CBC. Transfuse for hemoglobin less than 7. Discharge Plan: Home Plan to discharge in: 24 Hours - Advance Directives Does patient have a Living Will: No Does patient have a Durable POA for Healthcare: No - Code Status/Comfort Care Code Status Assessed: Yes (Full code) Critical Care: No Time Spent Managing Pts Care (In Minutes): 55
[2020-01-30] MEDS ORDERED: HYDRALAZINE HCL 20 MG/ML VIAL IV PRN (20:36)
[2020-01-30] MEDS ORDERED: ONDANSETRON 4 MG/2 ML VIAL IV PRN (20:36)
[2020-01-30] MEDS ORDERED: METOPROLOL TAR 25 MG TAB PO SCH (20:36)
[2020-01-30] MEDS ORDERED: ACETAMINOPHEN 500 MG TAB PO PRN (20:36)
[2020-01-30 20:56] VITALS: BMI 21.5
[2020-01-30] MEDS ORDERED: HEPARIN 5000 UNIT/ML 1 ML VIAL SQ SCH (21:00)
[2020-01-30] MEDS: ATORVASTATIN 40 MG TAB PO SCH (22:15)
[2020-01-30 22:20] LABS: CKMB Creatine Kinase MB 1.8 ng/mL (0.3-3.6); Creatine Phosphokinase 77 U/L (26-192); Troponin I < 0.02 ng/mL (0.0-0.045)
[2020-01-31 03:33] LABS: Urine Bacteria >50 /HPF (<20); Urine RBC <5 /HPF (NONE SEEN)
[2020-01-31] MEDS: METOPROLOL TAR 25 MG TAB PO SCH ×2 (06:00→10:09)
[2020-01-31 06:01] LABS: Absolute Lymphocytes (CBC) 1.8 K/uL (0.7-4.9); Basophils % 1.8 % (0-1.3); Hematocrit 29.9 % (36.0-45.0); Lymphocytes % 28.2 % (15.3-44.8); MPV 7.3 fL (7.6-11.3)
[2020-01-31 06:44] LABS: Ferritin 15.5 ng/mL (8-388); Magnesium 2.5 mg/dL (1.8-2.4); Potassium 4.4 mmol/L (3.5-5.1)
[2020-01-31 06:52] LABS: CKMB Creatine Kinase MB 1.5 ng/mL (0.3-3.6); Creatine Phosphokinase 76 U/L (26-192); Troponin I < 0.02 ng/mL (0.0-0.045)
[2020-01-31 07:27] LABS: Thyroid Stimulating Hormone 5.24 uIU/mL (0.360-3.740)
[2020-01-31] MEDS: FOLIC ACID 1 MG TABLET PO SCH (10:09)
[2020-01-31] MEDS: AMLODIPINE 5 MG TAB PO SCH (10:09)
[2020-01-31] MEDS: ASPIRIN EC 81 MG TAB PO SCH (10:09)
[2020-01-31] MEDS: HEPARIN 5000 UNIT/ML 1 ML VIAL SQ SCH ×2 (10:09→20:56)
--- NOTE | 2020-01-31 12:26 | PN ---
Date of Progress Note: 01/31/2020 The patient states she feels much better today. Her blood pressure is within normal limits; however, she is now on triple therapy. Seen by Cardiology, who suggested a stress test which can be done on outpatient followup. The patient moved around this afternoon and monitor her pressure and circulation status and if okay she will be able to go home this evening and stress test as an outpat ient. If, however, there are some changes, she may need to stay and do the stress test in the a.m. Awaiting results of echo. Cardiac enzymes normal. HR/MODL Voice ID: [id number] Report ID: [id number]
[2020-01-31] MEDS ORDERED: CEFTRIAXONE/SWI 1gm 1 GM/10 ML SYR IV ONE (12:30)
[2020-01-31] MEDS: ATORVASTATIN 40 MG TAB PO SCH (20:56)
[2020-02-01] MEDS: METOPROLOL TAR 25 MG TAB PO SCH (04:14)
--- NOTE | 2020-02-01 08:08 | ECHO ---
HEIGHT: 5 ft 2 in WEIGHT: 118 lb 0 oz DATE OF STUDY: 01/31/[address]: Toby Cifuentes DO 2-DIMENSIONAL: YES M.MODE: YES DOPPLER: YES COLOR FLOW: YES TDS: PORTABLE: DEFINITY: BUBBLE STUDY: DIAGNOSIS: HYPERTENSION URGENCY/ CHEST PAIN CARDIAC HISTORY: CATHERIZATION: SURGERY: PROSTHETIC VALVE: PACEMAKER: MEASUREMENTS (cm) DIASTOLIC (NORMALS) SYSTOLIC (NORMALS) IVSd 0.9 (0.6-1.2) LA Diam (1.9-4.0) LVEF 59% LVIDd 4.2 (3.5-5.7) LVIDs 2.9 (2.0-3.5) %FS 31% LVPWd 1.1 (0.6-1.2) Ao Diam 3.0 (2.0-3.7) 2 DIMENSIONAL ASSESSMENT: RIGHT ATRIUM: NORMAL LEFT ATRIUM: NORMAL RIGHT VENTRICLE: NORMAL LEFT VENTRICLE: NORMAL TRICUSPID VALVE: MILD TRICUSPID REGURGITATION MITRAL VALVE: NORMAL PULMONIC VALVE: NORMAL AORTIC VALVE: NORMAL PERICARDIAL EFFUSION: NONE AORTIC ROOT: NORMAL LEFT VENTRICULAR WALL MOTION: NORMAL DOPPLER/COLOR FLOW: SEE BELOW COMMENTS: NORMAL LEFT VENTRICULAR EJECTION FRACTION 55-60%. NORMAL WALL MOTION. MILD PULMONARY INSUFFIENCY. MILD TRICUSPID REGURGITATION. RIGHT VENTRICULAR SYSTOLIC PRESSURE IS 30-35 mmHg. TECHNOLOGIST: JENS ESCAMILLA
[2020-02-01] MEDS ORDERED: REGADENOSON 0.4 MG/5 ML SYR IV ONE (08:10)
[2020-02-01] MEDS: HEPARIN 5000 UNIT/ML 1 ML VIAL SQ SCH (09:00)
[2020-02-01] MEDS: FOLIC ACID 1 MG TABLET PO SCH (09:29)
[2020-02-01] MEDS: AMLODIPINE 5 MG TAB PO SCH (09:29)
[2020-02-01] MEDS: ASPIRIN EC 81 MG TAB PO SCH (09:29)
[2020-02-01] MEDS ORDERED: CEFTRIAXONE/SWI 1gm 1 GM/10 ML SYR IV ONE (11:14)
--- NOTE | 2020-02-01 11:34 | RAD REPORT ---
EXAM DESCRIPTION: NM - Rest Stress Cardiac Imaging - 02/01/2020 10:31 am CLINICAL HISTORY: Chest pain COMPARISON: Cardiac study 1999 TECHNIQUE: The patient was administered approximately 10 mCi of Tc 99m Sestamibi prior to resting SP ECT imaging of the heart. The patient was then administered approximately 30 mCi of Tc 99m Sestamibi following exercise or pharmacologic stress. Multiplanar SPECT images were reviewed. FINDINGS: The end diastolic volume is 43 ml, the end systolic volume is 10 ml, and the ejection frac tion is 77 %. Physiologic distribution of the radiopharmaceutical through the myocardium is noted. No stress induce d ischemic defect is seen to suggest stress induced ischemia. No fixed defect is seen to suggest hibe rnating myocardium or scarred myocardium. IMPRESSION: No stress induced ischemia or other suspicious findings.
[2020-02-01 12:38] VITALS: BP 178/79; TEMP 97.4
[2020-02-01 13:39] VITALS: O2SAT 99
--- NOTE | 2020-02-01 22:19 | PN ---
Date of Progress Note: 02/01/2020 Subjective: The patient was discharged today after a negative stress test. The issue of her blood p roblems she feels is directly related to the pain she feels when they do an automatic or even a hand- held blood pressure on her biceps. She states this can cause the immense pain, and therefore, her bl ood pressure goes up. She has experienced this here, at home, and in [place] as well. She states wh en the blood pressure was taken on her wrist or forearm, it is much more stable, and this apparently has been the case. In any event, beside her diuretics, she was placed on metoprolol 25 mg b.i.d. Kelli stewartged to follow up in 1 week with blood pressure readings. Her telemetry showed no significant ch anges as far as her rhythm is concerned and not really sure what created the episode of diaphoresis a nd hypertension when she was at home. so, we continued to have cardiac monitoring at home and in the office. HR/MODL Voice ID: [id number] Report ID: [id number]
--- NOTE | 2020-02-02 07:50 | PN ---
Date of Progress Note: 02/01/2020 The patient has been followed today 02/01/2020. She was admitted to Dr. Schwarz with hypertension, a typical chest pain. She was seen by Dr. Singh for above. Echocardiogram and stress test, which wer e ordered and done today revealed no significant ischemia and no wall motion abnormalities. From our standpoint, she can go home today whenever it is okay with Dr. Schwarz. We will follow her on a as needed basis as an outpatient. No change in her medical therapy for now. AZRA/MODL Voice ID: [id number] Report ID: [id number]
--- NOTE | 2020-02-02 09:22 | TREADPHA ---
DX: CHEST PAIN, ELEVATED BLOOD PRESSURE Date of Study: 02/01/2020 Ht: 5' 2 " Wt: 118 lb 0 oz Consulting Physician: ARPITA MEDICATIONS: NORVASC, LOVENOX, NEUROTIN HISTORY: COPD PHYSICIAL EXAMINATION: RESTING B.P.: 189/83 RESTING H.R.: 76 RESTING EKG: NORMAL PROTOCOL: LEXISCAN EXERCISE TIME: 3:30 B.P. AT PEAK STRESS: 165/65 IMPRESSION: LEXISCAN PENDING. SEE NUCLEAR MEDICINE REPORT.
--- NOTE | 2020-05-08 15:16 | DS ---
Date of Discharge: 02/01/2020 Hospital Course: The patient admitted to the hospital on 01/29 after presented to emergency room com plaining of significant change in her blood pressure associated with some arm pain. On admission, he r blood pressure was well above her norm and over 200 on repeated readings. She was given Lopressor 2.5 mg IV on a couple of occasions, which produced the improvement in her blood pressure and improvem ent in her symptoms. She was admitted for observation and cardiac followup. Cardiac enzymes within normal limits and throughout the remainder of her hospital stay when she was started on her beta bloc ker p.o., her blood pressure did remain stable. Telemetry did not show any significant changes, othe rwise on admission, she stated she had some palpitations. The other significant factor was borderlin e renal chemistry, so the possibility of renal insufficiency was also considered. She was seen by [facility] rdiology. The workup was done including stress test, which was negative and it was felt therefore th at it was basically a problem of uncontrolled blood pressure. 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 Final Diagnoses: Hypertensive crisis; chronic hypertension, good control; renal insufficiency. HR/MODL Voice ID: [id number] Report ID: [id number]
== END 2020-02-01 13:48 | disposition home or self-care (01) ==
LOC: ER 15:51 → ERHOLD 17:38 → 4TH 19:47
PROVIDERS: ADMIT Family Medicine; ATTEND Family Medicine
DX: I16.0 Hypertensive urgency (principal); I12.9 Hypertensive chronic kidney disease with stage 1 through stage 4 chronic kidney disease, or unspecified chronic kidney disease; M79.602 Pain in left arm; M25.512 Pain in left shoulder; N18.30 Chronic kidney disease, stage 3 unspecified; I27.20 Pulmonary hypertension, unspecified; M19.90 Unspecified osteoarthritis, unspecified site; D63.1 Anemia in chronic kidney disease; Z20.828 Contact with and (suspected) exposure to other viral communicable diseases
CPT/HCPCS: 36415; 71045; 78452; 80048; 80061; 80076; 81003; 81015; 82550; 82553; 82607; 82728; 83540; 83690; 83735; 83880; 84439; 84443; 84466; 84484; 85025; 85610; 87077; 87086; 87088; 87186; 93005; 93017; 93306; 96361; 96365; 96372; 96375; 99285; A9500; J0360; J0696; J1644; J1650; J2785; J7030; U0002

== ENCOUNTER 2020-02-18 11:04 | Emergency (ER) | payer OTHER ==
--- OUTSIDE RECORDS SUMMARY | 2020-02-18 11:06 | XMS REPORT | Continuity of Care Document ---
:1935 Author Organization [facility]ly [facility] t Address [address] [place] [address] Care Team Providers Name Role Phone Armando BRUCE P Attending Clinician Problems This patient has no known problems. Allergies, Adverse Reactions, Alerts This patient has no known allergies or adverse reactions. Medications This patient has no known medications. Procedures This patient has no known procedures. Encounters Start End Encounter Admission Attending Care Care Encounter Source Date/Time Date/Time Type Type Clinicians Facility Department ID 2020-02-07 2020-02-07 Outpatient [facility] [id number] [facility] 2020-02-07 2020-02-07 Outpatient [facility] [id number] [facility] 00:00:00 00[facility]00:00 [facility] 2020-01-21 2020-01-21 Office JAMILA Roberts [id number] 13:40:24 14:56:25 Visit Christopher [facility]BULATOR [id number] P Y [id number] 2019-12-23 2019-12-23 Outpatient [facility] [id number] [facility] 2019-07-23 2019-07-23 Office JAMILA Roberts [id number] 13:50:00 14:00:00 Visit Christopher AMBULATOR [id number] P Y [id number] 300 2019-07-13 2019-07-13 Office JAMILA Roberts [id number] 13:51:37 14:54:24 Visit Christopher AMBULATOR [id number] P Y [id number] 2019-05-04 2019-05-04 Office JAMILA Roberts [id number] 13:21:00 13:31:00 Visit Christopher AMBULATOR [id number] P Y [id number] 300 2019-04-20 2019-04-20 Office JAMILA Roberts [id number] 13:06:12 15:12:28 Visit Christopher AMBULATOR [id number] P Y [id number] [id number] 300 Results This patient has no known results.
--- NOTE | 2020-02-18 12:12 | RAD REPORT ---
EXAM DESCRIPTION: RAD - Chest Single View - 02/18/2020 11:33 am CLINICAL HISTORY: COUGH COMPARISON: Portable January 30, 2020 TECHNIQUE: AP portable chest image was obtained 02/18/2020 11:33 am . FINDINGS: Lungs are clear. Chronic interstitial pattern present in the lung shaw. No dense consoli dation present. There is an increased patchy opacification pattern in the mid left lung field suspici ous for early pneumonia. No measurable pleural effusion and no pneumothorax. No acute bony abnormalit y seen. No acute aortic findings suspected. IMPRESSION: Suspected early or mild pneumonia left midlung field superimposed on chronic interstitia l lung disease.
[2020-02-18 12:18] LABS: Absolute Lymphocytes (CBC) 0.8 K/uL (0.7-4.9); Basophils % 0.3 % (0-1.3); Hematocrit 31.8 % (36.0-45.0); Lymphocytes % 11.3 % (15.3-44.8); MPV 8.1 fL (7.6-11.3); RBC Red Blood Cell Count 3.76 M/uL (3.86-4.86)
[2020-02-18 12:35] LABS: Albumin 3.2 g/dL (3.4-5.0); Bilirubin Direct 0.2 mg/dL (0-0.2); Bilirubin Total 0.6 mg/dL (0.2-1.0); Potassium 3.5 mmol/L (3.5-5.1); Protein, Total 8.4 g/dL (6.4-8.2)
[2020-02-18] MEDS ORDERED: NA CHLORIDE 0.9% 500 ML ONE (12:41)
[2020-02-18] MEDS ORDERED: AZITHROMYCIN IV 500 MG in NA CHLORIDE 0.9% 250 ML IVPB ONE (13:00)
[2020-02-18 13:37] LABS: SARS-COV-2 RT PCR POSITIVE (NEGATIVE)
--- NOTE | 2020-02-18 14:06 | EDPHYS ---
Physician Documentation [facility] Name: Camilla Hutchison Age: 84 yrs Sex: Female : 1935 Arrival Date: 02/18/2020 Time: 11:07 Bed 13 Private MD: ED Physician Tc Burnette HPI: 02/17 12:36 This 84 yrs old Female presents to ER via Wheelchair with complaints of tw4 Diarrhea, Cough. 12:36 The patient presents to the emergency department with diarrhea. tw4 12:38 Onset: The symptoms/episode began/occurred 2 day(s) ago. Possible causes: unknown. The tw4 symptoms are aggravated by nothing. Severity of symptoms: At their worst the symptoms were moderate in the emergency department the symptoms are unchanged. The patient has not experienced similar symptoms in the past. The patient has not recently seen a physician. Historical: - Allergies: 11:28 Iodinated Contrast Media - IV Dye; ca1 11:28 Levaquin; ca1 11:28 PENICILLINS; ca1 11:28 Sulfa (Sulfonamide Antibiotics); ca1 11:28 Ibuprofen; ca1 - PMHx: 11:28 Hypertension; ca1 - Immunization history:: Adult Immunizations up to date, Pneumococcal vaccine is not up to date, Flu vaccine is not up to date. Patient has never been vaccinated. - Social history:: Smoking status: Patient denies any tobacco usage or history of. ROS: 12:38 Cardiovascular: Negative for chest pain, palpitations, and edema, Abdomen/GI: Negative tw4 for abdominal pain, nausea, vomiting, diarrhea, and constipation, Back: Negative for injury and pain, MS/Extremity: Negative for injury and deformity, Skin: Negative for injury, rash, and discoloration, Neuro: Negative for headache, weakness, numbness, tingling, and seizure. 12:38 Constitutional: Positive for fever. 12:38 Respiratory: Positive for shortness of breath. Exam: 12:38 Constitutional: This is a well developed, well nourished patient who is awake, alert, tw4 and in no acute distress. Head/Face: Normocephalic, atraumatic. Chest/axilla: Normal chest wall appearance and motion. Nontender with no deformity. No lesions are appreciated. Cardiovascular: Regular rate and rhythm with a normal S1 and S2. No gallops, murmurs, or rubs. Normal PMI, no JVD. No pulse deficits. Respiratory: Lungs have equal breath sounds bilaterally, clear to auscultation and percussion. No rales, rhonchi or wheezes noted. No increased work of breathing, no retractions or nasal flaring. 12:38 Back: No spinal tenderness. No costovertebral tenderness. Full range of motion. MS/ Extremity: Pulses equal, no cyanosis. Neurovascular intact. Full, normal range of motion. Neuro: Awake and alert, GCS 15, oriented to person, place, time, and situation. Cranial nerves II-XII grossly intact. Motor strength 5/5 in all extremities. Sensory grossly intact. Cerebellar exam normal. Normal gait. Psych: Awake, alert, with orientation to person, place and time. Behavior, mood, and affect are within normal limits. 12:38 Abdomen/GI: Inspection: abdomen appears normal, Bowel sounds: normal, Palpation: abdomen is soft and non-tender. Vital Signs: 11:25 BP 167 / 76; Pulse 108; Resp 20; Temp 97.3; Pulse Ox 99% on R/A; Weight 51.71 kg (R); ca1 Height 5 ft. 2 in. (157.48 cm) (R); Pain 0/10; 12:15 BP 112 / 59; Pulse 92; Resp 16; Pulse Ox 99% ; bp 13:12 BP 149 / 69; Pulse 88; Resp 16; Temp 100.2(O); Pulse Ox 99% on R/A; mh5 14:00 BP 146 / 74; Pulse 89; Resp 16; Temp 100.8(O); Pulse Ox 98% on R/A; mh5 14:54 BP 138 / 68; Pulse 90; Resp 17; Temp 99.9; Pulse Ox 96% ; bp 11:25 Body Mass Index 20.85 (51.71 kg, 157.48 cm) ca1 MDM: 11:14 Patient medically screened. tw4 12:38 Differential diagnosis: Nonspecific abd pain, gastritis. Data reviewed: vital signs, tw4 nurses notes. Data interpreted: Pulse oximetry: Interpretation: normal. Counseling: I had a detailed discussion with the patient and/or guardian regarding: the historical points, exam findings, and any diagnostic results supporting the discharge/admit diagnosis, radiology results. 02/17 11:16 Order name: Basic Metabolic Panel tw4 02/17 11:16 Order name: CBC with Diff tw4 02/17 11:16 Order name: Hepatic Function tw4 02/17 11:16 Order name: Lipase tw4 02/17 11:16 Order name: IV Saline Lock; Complete Time: 12:14 tw4 02/17 11:16 Order name: Labs collected and sent; Complete Time: 12:14 tw4 02/17 11:16 Order name: CXR XRAY; Complete Time: 12:40 tw4 02/17 11:16 Order name: Strep tw 02/17 13:12 Order name: Throat Culture EDHI 02/17 13:37 Order name: COVID-19/FLU A+B EDMS 02/17 11:16 Order name: Document PUI#; Complete Time: 12:14 tw4 02/17 11:16 Order name: Droplet/Contact Precautions; Complete Time: 12:14 tw4 02/17 11:16 Order name: Notify Health Dept [phone]/ ; Complete Time: 12:14 02/17 11:16 Order name: O2 Per Protocol; Complete Time: 12:14 tw Administered Medications: 12:20 Drug: NS 0.9% 500 ml Route: IV; Rate: bolus; Site: right antecubital; bp 14:56 Follow up: IV Status: Completed infusion; IV Intake: 500ml bp 13:26 Drug: AZITHromycin 500 mg Route: IVPB; Infused Over: 1 hrs; Site: right forearm; bp 14:56 Follow up: IV Status: Completed infusion; IV Intake: 250ml bp Disposition: 02/18/20 14:05 Discharged to Home. Impression: Other pneumonia, unspecified organism, Coronavirus infection, unspecified. - Condition is Stable. - Discharge Instructions: Community-Acquired Pneumonia, Adult, Upper Respiratory Infection, Adult, Fceg-gs-Bpgi, COVID-19. - Prescriptions for Zithromax Z- Benoit 250 mg Oral Tablet - take 1 tablet by ORAL route as directed for 5 days Day 1 - take two (2) tablets one time. Day 2, 3, 4 , 5 take one (1) tablet once daily.; 6 tablet. Albuterol Sulfate 90 mcg/actuation - inhale 1-2 puff by INHALATION route every 4-6 hours; 1 Inhaler. - Medication Reconciliation Form, Thank You Letter, Antibiotic Education, Prescription Opioid Use form. - Follow up: Private Physician; When: Upon discharge from the Emergency Department; Reason: Recheck today's complaints, Continuance of care, Re-evaluation by your physician. - Problem is new. - Symptoms have improved. Signatures: Dispatcher [employer] Ronni Kasper, RN RN Tc Holt MD MD tw4 Caity Garcia RN RN ca1 Corrections: (The following items were deleted from the chart) 11:28 11:28 PSHx: Unable to obtain; ca1 ca1 12:47 11:16 CORONAVIRUS+MR.LAB.BRZ ordered. [facility] 14:56 14:05 02/18/2020 14:05 Discharged to Home. Impression: Other pneumonia, unspecified bp organism; Coronavirus infection, unspecified. Condition is Stable. Forms are Medication Reconciliation Form, Thank You Letter, Antibiotic Education, Prescription Opioid Use. Follow up: Private Physician; When: Upon discharge from the Emergency Department; Reason: Recheck today's complaints, Continuance of care, Re-evaluation by your physician. Problem is new. Symptoms have improved. tw4
--- NOTE | 2020-02-18 14:06 | ER ---
Nurse's Notes [facility] Name: Camilla Hutchison Age: 84 yrs Sex: Female : 1935 Arrival Date: 02/18/2020 Time: 11:07 Bed 13 Private MD: Diagnosis: Other pneumonia, unspecified organism;Coronavirus infection, unspecified Presentation: 02/17 11:23 Coronavirus screen: Client denies travel out of the [place] in the last 14 days. cough ca1 unrelated to allergies, diarrhea, fever, shortness of breath, sore throat, Client presents with at least one sign or symptom that may indicate coronavirus-19. Standard/surgical mask placed on the client. Provider contacted for isolation considerations. Household members tested positive for Covid. 11:23 Method Of Arrival: Wheelchair ca1 11:25 Chief complaint: Patient states: Diarrhea, DHN, cough, SOB, low grade fever x 2 days. ca1 , granddaughter, son and [id number] tested positive for Covid. Ebola Screen: Patient negative for fever greater than or equal to 101.5 degrees Fahrenheit, and additional compatible Ebola Virus Disease symptoms Patient denies exposure to infectious person. Patient denies travel to an Ebola-affected area in the 21 days before illness onset. No symptoms or risks identified at this time. Initial Sepsis Screen: Does the patient meet any 2 criteria? No. Patient's initial sepsis screen is negative. Does the patient have a suspected source of infection? No. Patient's initial sepsis screen is negative. Risk Assessment: Do you want to hurt yourself or someone else? Patient reports no desire to harm self or others. Onset of symptoms was February 18, 2020. 11:25 Acuity: EUGENIO 3 ca1 Triage Assessment: 11:30 General: Appears in no apparent distress. uncomfortable, ill, Behavior is cooperative, bp appropriate for age, anxious. Pain: Denies pain. EENT: No deficits noted. Neuro: No deficits noted. Cardiovascular: Rhythm is sinus tachycardia. Respiratory: Reports cough that is Airway is patent Respiratory effort is even, unlabored, Respiratory pattern is regular, symmetrical. GI: Reports diarrhea. : No signs and/or symptoms were reported regarding the genitourinary system. Derm: No deficits noted. Musculoskeletal: No deficits noted. Historical: - Allergies: 11:28 Iodinated Contrast Media - IV Dye; ca1 11:28 Levaquin; ca1 11:28 PENICILLINS; ca1 11:28 Sulfa (Sulfonamide Antibiotics); ca1 11:28 Ibuprofen; ca1 - PMHx: 11:28 Hypertension; ca1 - Immunization history:: Adult Immunizations up to date, Pneumococcal vaccine is not up to date, Flu vaccine is not up to date. Patient has never been vaccinated. - Social history:: Smoking status: Patient denies any tobacco usage or history of. Screenin:30 Abuse screen: Denies threats or abuse. Denies injuries from another. Nutritional bp screening: No deficits noted. Tuberculosis screening: No symptoms or risk factors identified. Fall Risk None identified. Assessment: 11:30 General: SEE TRIAGE NOTE. bp 12:15 Reassessment: No changes from previously documented assessment. Patient and/or family bp updated on plan of care and expected duration. Pain level reassessed. Patient is alert, oriented x 3, equal unlabored respirations, skin warm/dry/pink. ALL CURRENT ORDERS COMPLETE. 14:00 Reassessment: No changes from previously documented assessment. Patient and/or family bp updated on plan of care and expected duration. Pain level reassessed. Patient is alert, oriented x 3, equal unlabored respirations, skin warm/dry/pink. ABX INFUSING. 14:34 Reassessment: D/C ON HOLD FOR ABX COMPLETION. bp 14:54 Reassessment: PT D/C HOME AMBULATORY WITH FAMILY, DX WITH COVID PNEUMONIA. bp Vital Signs: 11:25 BP 167 / 76; Pulse 108; Resp 20; Temp 97.3; Pulse Ox 99% on R/A; Weight 51.71 kg (R); ca1 Height 5 ft. 2 in. (157.48 cm) (R); Pain 0/10; 12:15 BP 112 / 59; Pulse 92; Resp 16; Pulse Ox 99% ; bp 13:12 BP 149 / 69; Pulse 88; Resp 16; Temp 100.2(O); Pulse Ox 99% on R/A; mh5 14:00 BP 146 / 74; Pulse 89; Resp 16; Temp 100.8(O); Pulse Ox 98% on R/A; mh5 14:54 BP 138 / 68; Pulse 90; Resp 17; Temp 99.9; Pulse Ox 96% ; bp 11:25 Body Mass Index 20.85 (51.71 kg, 157.48 cm) ca1 ED Course: 11:07 Patient arrived in ED. rg4 11:13 Tc Burnette MD is Attending Physician. tw4 11:19 Ronni Guzman, RN is Primary Nurse. bp 11:28 Triage completed. ca1 11:28 Arm band placed on right wrist. ca1 11:30 Patient has correct armband on for positive identification. Bed in low position. Call bp light in reach. Side rails up X2. Adult w/ patient. 11:33 CXR XRAY In Process Unspecified. EDMS 12:00 Inserted saline lock: 20 gauge in right antecubital area, using aseptic technique. bp Blood collected. 14:54 No provider procedures requiring assistance completed. IV discontinued, intact, bp bleeding controlled, No redness/swelling at site. Pressure dressing applied. Administered Medications: 12:20 Drug: NS 0.9% 500 ml Route: IV; Rate: bolus; Site: right antecubital; bp 14:56 Follow up: IV Status: Completed infusion; IV Intake: 500ml bp 13:26 Drug: AZITHromycin 500 mg Route: IVPB; Infused Over: 1 hrs; Site: right forearm; bp 14:56 Follow up: IV Status: Completed infusion; IV Intake: 250ml bp Intake: 14:56 IV: 500ml; Total: 500ml. bp 14:56 IV: 250ml; Total: 750ml. bp Outcome: 14:05 Discharge ordered by . tw4 14:54 Discharged to home ambulatory, with family. bp 14:54 Condition: stable 14:54 Discharge instructions given to patient, family, Instructed on discharge instructions, follow up and referral plans. medication usage, Demonstrated understanding of instructions, follow-up care, medications, Prescriptions given X 2. 14:56 Patient left the ED. bp Signatures: Dispatcher [employer] EDGA Darline Villalobos [address] [facility] Ronni Guzman, RN RN bp Tc Burnette MD MD tw4 Caity Garcia RN RN ca1 Corrections: (The following items were deleted from the chart) 11:28 11:28 PSHx: Unable to obtain; ca1 ca1
[2020-02-18 15:23] VITALS: BP 138/68; TEMP 99.9; O2SAT 96
== END 2020-02-18 14:56 | disposition home or self-care (01) ==
LOC: ER 11:04
DX: U07.1 COVID-19 (principal); J12.89 Other viral pneumonia; I10 Essential (primary) hypertension; Z88.0 Allergy status to penicillin; Z88.1 Allergy status to other antibiotic agents; Z88.2 Allergy status to sulfonamides; Z88.6 Allergy status to analgesic agent; Z91.048 Other nonmedicinal substance allergy status
CPT/HCPCS: 96365; 96361; 87070; 85025; 80048; 36415; 80076; 87081; 83690; 0240U; 71045; 99284; J0456; J7050; J7040

== ENCOUNTER 2022-04-27 17:38 | Emergency (ER) | payer OTHER ==
--- OUTSIDE RECORDS SUMMARY | 2022-04-27 17:42 | XMS REPORT | Continuity of Care Document ---
:1935 Author Organization [facility] t Address [address] [place] [address] [address] [place] [address] Care Team Providers Name Role Phone Jin Schwarz Primary Care Physician Breanna Duran Attending Clinician Unavailable HERBERTH OGLESBY Attending Clinician Unavailable Herberth Oglesby MD Attending Clinician Only, Adc Test Attending Clinician Unavailable Doctor Unassigned, [place] Attending Clinician Unavailable Jose Roberts MD Attending Clinician Bill Shell Admitting Clinician Unavailable HERBERTH OGLESBY Admitting Clinician Unavailable Herberth Oglesby MD Admitting Clinician Payers Payer Name Policy Type Policy Number Effective Date Expiration Date S [facility] MEDICARE PART A \T\ [id number] 2000 B 00:00:00 [employer] [place] [id number] 2016 GENERAL 00:00:00 Problems Condition Condition Condition Status Onset Resolution Last Treating Co mments Source Name Details Category Date Date Treatment Clinician Date [id number] DSD Problem Active Common (detrusor Spirit and - 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[facility] right hand [id number] 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 [facility] [id number] History of Problem Active Co mmon nephrolith Spirit iasis [facility] [id number] Gross Problem Active Common hematuria [facility] [id number] Lesion of Problem Active Com mon bladder [facility] [id number] Cystitis Problem Active Commo n [facility] [id number] Bladder Problem Active Commo n diverticul [facility] Allergies, Adverse Reactions, Alerts Allergy Allergy Status Severity Reaction(s) Onset Inactive Treating Comm ents Source Name Type Date Date Clinician Penicill Propensi Active Other (See 2019-02 Chest [facility] ins ty to Comments) 2 pains [place] adverse 00:00: of reaction 00 Medicin s to e drug Sulfa Propensi Active [facility] Antibiot ty to 414 [place] ics adverse 00:00: of reaction 00 Medicin s to e drug Iodine Propensi Active [facility] ty to 4-14 [place] adverse 00:00: of reaction 00 Medicin s to e drug Levoflox Propensi Active [facility] acin ty to 4-14 [place] adverse 00:00: of reaction 00 Medicin s to e drug Nitrofur Propensi Active Shortness Of [facility] antoin ty to Breath 4-10 College adverse 00:00: of reaction 00 Medicin s to e drug Penicill Propensi Active Other - See Causes U nivers ins ty to comments 09-10 severe ity of adverse 00:00: chest [place] reaction 00 pain Medical s to Branch drug Sulfa Propensi Active Other - See Causes Uni vers (Sulfona ty to comments 09-10 skin ity of mide adverse 00:00: blisters [place] Antibiot reaction 00 Medica l ics) s to Branch drug Artifici Propensi Active Other - See Causes U nivers al ty to comments 09-10 bloodshot ity o f Tears(Hy adverse 00:00: eyes [place] promello reaction 00 Medica l se) s to Branch drug Iodine Propensi Active Other - See IV Iodine Univers ty to comments 09-10 - caused ity of adverse 00:00: kidney [place] reaction 00 problems Medica l s to Branch drug Levoflox Propensi Active Other - See Causes U nivers acin ty to comments 09-10 leg pain ity of adverse 00:00: [place] reaction 00 Medical s to Branch drug ARTIFICI DRUG Active Med Other-Cmnt Univ ers AL 7 ity of TEARS(HY 00:00: [place] PROMELLO 00 Medical SE) Branch IODINE DRUG Active Med Other-Cmnt Univer s INGREDI 7-25 ity of 00:00: [place] 00 Medical Branch LEVOFLOX DRUG Active Med Other-Cmnt Univ ers ACIN INGREDI 7-25 ity of 00:00: [place] 00 Medical Branch PENICILL Drug Active Med Other-Cmnt Univ ers INS Class 7-25 ity of 00:00: [place] 00 Medical Branch SULFA Drug Active Med Other-Cmnt Univer s (SULFONA Class 7-25 ity of MIDE 00:00: [place] ANTIBIOT 00 Medical ICS) Branch [id number] Drug Active Unknown Common allergy [facility] [address] Drug Active Unknown Common allergy [facility] Iodine Iodine Active Unknown Common [facility] [address] Drug Active Unknown Common allergy [facility] [address] Drug Active Unknown Common allergy [facility] Social History Social Habit Start Date Stop Date Quantity Comments Source History [facility] ge of Alcohol Std Medicine Drinks History [facility] ge of Alcohol Binge Medicine Exposure to Not sure University of SARS-CoV-2 [place] [facility] (event) Branch History of Common Spirit - Tobacco Use [facility] Sex Assigned At Common Sp keegan - [facility] Tobacco use and 2020-01-21 2020-01-21 Never used [facility] Co llege of exposure 00:00:00 00:00:00 Medicine Alcohol intake 2020-01-21 2020-01-21 Lifetime [facility] Col lege of 00:00:00 00:00:00 non-drinker Medicine (finding) History SDOH 2019-08-03 2019-08-03 1 [facility] Yunier vasquez of Alcohol Frequency 00:00:00 00:00:00 Medicin e Smoking Status Start Date Stop Date Source Never Smoker Common [facility] - [facility] Unknown if ever smoked [facility] Co llege of Medicine Medications Ordered Filled Start Stop Current Ordering Indication Dosage Frequency Signature Comments Components Source Medication Medication Date Date Medication? Clinician (SIG) Name Name Alfuzosin Alfuzosin 2021- No 1{table QD Alfuzosin HCl ER 10 HCl ER 10 07-26 t_immed HCl ER 10 MG MG 00:00: 00:00 iately_ MG 00 :00 after_t he_same _meal} Alfuzosin Alfuzosin 2021- No 1{table QD Alfuzosin HCl ER 10 HCl ER 10 07-26 t_immed HCl ER 10 MG MG 00:00: 00:00 iately_ MG 00 :00 after_t he_same _meal} Alfuzosin Alfuzosin 2021- No 1{table QD Alfuzosin HCl ER 10 HCl ER 10 07-26 t_immed HCl ER 10 MG MG 00:00: 00:00 iately_ MG 00 :00 after_t he_same _meal} Macrobid Macrobid 2021- No BID Macrobid 100 MG 100 MG -31 05- 100 MG 00:00: 00:00 00 :00 Nitrofurant Nitrofurant 2021- No 1{capsu BID Nitrofuran oin Monohyd oin Monohyd 3-05-13 le_with toin Macro 100 Macro 100 00:00: 00:00 _food} Monohyd MG MG 00 :00 Macro 100 MG water for 2020-02 Yes PRN, Univers irrigation 0-06 Starting ity o f irrigation 14:53: on Fri [place] solution 00 11/22/20 at Medic al 0953, Branch Until Discontinu ed, Routine, Intra-op water for 2020-02- No PRN, Univers irrigation 0-06 10-06 Starting ity of irrigation 14:53: 19:03 on Fri [place] solution 00 :43 11/22/20 at Medic al 0953, Branch Until Fri11/22/20 at 1403, Routine, Intra-op sodium 2020-02 Yes PRN, Univers chloride 0-06 Starting ity of (NS) 14:52: on Wed [place] injection 00 11/22/20 at [facility] 0952, Branch Until Discontinu ed, Routine, Intra-op neomycin-po 2020-02 Yes PRN, Univer s lymyxin-dex 0-06 Starting ity of amethasone 14:52: on Fri [place] (MAXITROL) 00 11/22/20 at [facility] ical 3.5 0952, Branch mg/g-10,000 Until unit/g-0.1 Discontinu % ed, ophthalmic Routine, ointment Intra-op Hyaluronida 2020-02 Yes PRN, Univer s se, Human 0-06 Starting ity of Recomb. 14:52: on Fri [place] (HYLENEX) 00 11/22/20 at [facility] injection 0952, Branch Until Discontinu ed, Routine, Intra-op sodium 2020-02- No PRN, Univers chloride 0-06 10-06 Starting ity of (NS) 14:52: 19:03 on Fri [place] injection 00 :43 11/22/20 at [facility] 0952, Branch Until Fri11/22/20 at 1403, Routine, Intra-op neomycin-po 2020-02- No PRN, Unive rs lymyxin-dex 0-06 10-06 Starting ity of amethasone 14:52: 19:03 [place] Fri [place] (MAXITROL[place] 00 :43 11/22/20 at [facility] ical 3.5 0952, Branch mg/g-10,000 Until Wed unit/g-0.1 11/22/20 at % 1403, ophthalmic Routine, ointment Intra-op Hyaluronida 2020-02- No PRN, Unive rs se, Human 0-06 10-06 Starting ity o f Recomb. 14:52: 19:03 on Fri [place] (HYLENEX) 00 :43 1021 at [facility] injection 0952, Branch Until Fri11/22/20 at 1403, Routine, Intra-op eye block 2020-02 Yes PRN, Univers syringe 11 0-06 Starting ity o f mL 14:51: on Wed [place] 00 11/22/20 at Medical 0951, Branch Until Discontinu ed, Intra-op eye block 2020-02- No PRN, Univers syringe 11 0-06 10-06 Starting ity of mL 14:51: 19:03 on Fri [place] 00 :43 11/22/20 at Medical 0951, Branch Until 11/22/20 at 1403, Intra-op EPINEPHrine 2020-02 Yes PRN, Univer s 1:1,000 (1 0-06 Starting ity o f mg/mL) 14:50: on Fri [place] (ADRENALIN) 00 11/22/20 at Tn dical injection 0950, Branch Until Discontinu ed, Routine, Intra-op DUOVISC 2020-02 Yes PRN, Univers (DUOVISC 0-06 Starting ity of VISCO 14:50: on Fri ELASTIC) 3 00 11/22/20 at Med ical %-4 %(0.5 0950, Branch mL) 1 % Until (0.55 mL) Discontinu intraocular ed, injection Routine, Intra-op dexamethaso 2020-02 Yes PRN, Univer s ne 0-06 Starting ity of (DECADRON 14:50: on Fri [place] PHOSPHATE) 00 11/22/20 at Med ical injection 0950, Branch Until Discontinu ed, Routine, Intra-op EPINEPHrine 2020-02- No PRN, Unive rs 1:1,000 (1 0-06 10- Starting ity of mg/mL) 14:50: 19:03 on Fri (ADRENALIN) 00 :43 11/22/20 at Me dical injection 0950, Branch Until Fri11/22/20 at 1403, Routine, Intra-op DUOVISC 2020-02- No PRN, Univers (DUOVISC 0-06 10-06 Starting ity of VISCO 14:50: 19:03 on Fri [place] ELASTIC) 3 00 :43 11/22/20 at Med ical %-4 %(0.5 0950, Branch mL) 1 % Until Wed (0.55 mL) 11/22/20 at intraocular 1403, injection Routine, Intra-op dexamethaso 2020-02- No PRN, Unive rs ne 0-06 10-06 Starting ity of (DECADRON 14:50: 19:03 on Fri [place] PHOSPHATE) 00 :43 11/22/20 at [facility] ical injection 0950, Branch Until Fri11/22/20 at 1403, Routine, Intra-op ceFAZolin 2020-02 Yes PRN, Univers (ANCEF) 0-06 Starting ity of injection 14:49: on Fri [place] 00 11/22/20 at [facility] 0949, Branch Until Discontinu ed, YADIRA, Intra-op carbachoL 2020-02 Yes PRN, Univers (MIOSTAT) 0-06 Starting ity of 0.01 % 14:49: on Wed [place] intraocular 00 11/22/20 at Tn dical injection 0949, Branch Until Discontinu ed, Routine, Intra-op ceFAZolin 2020-02- No PRN, Univers (ANCEF) 0-06 10-06 Starting ity of injection 14:49: 19:03 on Fri [place] 00 :43 11/22/20 at [facility] 0949, Branch Until Fri11/22/20 at 1403, YADIRA, Intra-op carbachoL 2020-02- No PRN, Univers (MIOSTAT) 0-06 10-06 Starting ity o f 0.01 % 14:49: 19:03 on Fri [place] intraocular 00 :43 11/22/20 at Tn dical injection 0949, Branch Until Fri11/22/20 at 1403, Routine, Intra-op balanced 2020-02 Yes PRN, Univers salt irrig 0-06 Starting ity o f soln comb1 14:48: on Fri (BSS PLUS) 00 11/22/20 at [facility] ical ophthalmic 0948, Branch solution Until 500 mL bag Discontinu ed, Routine, Intra-op balanced 2020-02- No PRN, Univers salt irrig 0-06 10- Starting ity of soln comb1 14:48: 19:03 [place] Fri [place] (BSS PLUS) 00 :43 11/22/20 at [facility] ical ophthalmic 0948, Branch solution Until Wed 500 mL bag 11/22/20 at 1403, Routine, Intra-op mydriatic 2020-02- No .5mL 0.5 mL, Univ ers #5 0-06 10- Left Eye, ity of ophthalmic 14:30: 14:47 ONCE, 1 [place] solution 00 :00 dose, On Medical 0.5 mL Wed Branch syringe 11/22/20 at 0930, Routine, DSU Pre-op lactated 2020-02- No 1000mL at 42 Unive rs ringers IV 0-06 10-06 mL/hr, ity of infusion 14:30: 14:45 1,000 mL, [place] as 1,000 mL 00 :00 IV Medical Infusion, Branch ONCE, 1 dose, On Fri11/22/20 at 0930, Routine, DSU Pre-op mydriatic 2020-02- No .5mL 0.5 mL, Univ ers #5 0-06 10-06 Left Eye, ity of ophthalmic 14:30: 14:47 ONCE, 1 [place] solution 00 :00 dose, On Medical 0.5 mL Wed Branch syringe 11/22/20 at 0930, Routine, DSU Pre-op lactated 2020-02- No 1000mL at 42 Unive rs ringers IV 0-06 10-06 mL/hr, ity of infusion 14:30: 14:45 1,000 mL, [place] as 1,000 mL 00 :00 IV Medical Infusion, Branch ONCE, 1 dose, On Fri11/22/20 at 0930, Routine, DSU Pre-op hydroCHLORO 2020-02 Yes 12.5mg Take 12.5 Univers thiazide 0-06 mg by ity of 12.5 mg 11:58: mouth [place] capsule 43 daily. Medical Branch Calcium 2020-02 Yes 1{each} Take 1-2 Uni vers Carbonate-M 0-06 Each by ity o f ag Hydroxid 11:58: [place] (ROLAIDS[place] 43 needed. Medical 550-110 mg Branch Chew hydroCHLORO 2020-02 Yes 12.5mg Take 12.5 Univers thiazide 0-06 mg by ity of 12.5 mg 11:58: mouth [place] capsule 43 daily. Medical [place] Calcium 2020-02 Yes 1{each} Take 1-2 Uni vers Carbonate-M 0-06 Each by ity o f ag Hydroxid 11:58: mouth [place] (ROLAIDS[place] 43 needed. Medical 550-110 mg Branch Chew D-Mannose 2019-02 Yes Take by [place] 350 MG CAPS 2-04 mouth. Colleg e 20:41: of 22 Medicin e hydrochloro 2019- Yes [facility] thiazide 2-03 College 12.5 MG 00:00: of TABS 00 Medicin e Lidocaine Lidocaine 2019- No 10mg Com 02-21 Spirit 00:00: - [facility]I 00 [facility] Depo-Medrol Depo-Medrol 2019-02 No 40mg Common (Methylpred (Methylpred 1-05 S pirit nisolone) nisolone) 00:00: - C [place] 40mg 40mg 00 [facility] Lidocaine Lidocaine 2019- No 10mg Com 02-21 Spirit 00:00: - [facility]I 00 [facility] Depo-Medrol Depo-Medrol 2019-02 No 40mg Common (Methylpred (Methylpred 1-05 S pirit nisolone) nisolone) 00:00: - C [place] 40mg 40mg 00 [facility] Lidocaine Lidocaine 2019- No 10mg Com 02-21 Spirit 00:00: - [facility]I [facility] Depo-Medrol Depo-Medrol 2019- No 40mg Common (Methylpred (Methylpred 1-05 S pirit nisolone) nisolone) 00:00: - C [place] 40mg 40mg 00 [facility] Lidocaine Lidocaine 2019- No 10mg Com 02-21 Spirit 00:00: - CHI 00 [facility] Depo-Medrol Depo-Medrol 2019- No 40mg Common (Methylpred (Methylpred 1-05 S pirit nisolone) nisolone) 00:00: - C [place] 40mg 40mg 00 [facility] Lidocaine Lidocaine 2019- No 10mg Com 02-21 Spirit 00:00: - CHI 00 [facility] Depo-Medrol Depo-Medrol 2019-1 No 40mg Common (Methylpred (Methylpred 1-05 S pirit nisolone) nisolone) 00:00: - C [place] 40mg 40mg 00 [facility] Lidocaine Lidocaine 2019- No 10mg Com 02-21 Spirit 00:00: - CHI 00 [facility] Depo-Medrol Depo-Medrol 2019-1 No 40mg Common (Methylpred (Methylpred 1-05 S pirit nisolone) nisolone) 00:00: - C [place] 40mg 40mg 00 [facility] amoxicillin 2019-0 2020- No [id number] 1{tbl} Take 1 Tab [facility] -clavulanat 6-04 by mouth Col lege e 00:00: 00:00 two times of (AUGMENTIN) 00 :00 daily. Medici n 875-125 MG e per tablet hydrochloro 2020-0 Yes 12.5mg Take 12.5 [facility] thiazide 5-26 mg by [place] (MICROZIDE) 19:04: mouth. of 12.5 MG 11 Medicin capsule e hydrochloro 2020-0 Yes 12.5mg Take 12.5 [place] thiazide 5-26 mg by [place] (MICROZIDE) 19:04: mouth. of 12.5 MG 11 Medicin capsule e Tamsulosin 2019-0 2020- No [id number] .4mg Take 0.4 [place] HCl 0.4 MG 4-15 05-26 mg by [place] CAPS 00:00: 00:00 mouth at of 00 :00 bedtime. Medicin e ciprofloxac 2020-0 Yes [id number] 250mg Take 0.5 [facility] in (CIPRO) 4-10 Tabs by Colleg e 500 MG 00:00: mouth two of tablet 00 times Medicin daily. e ciprofloxac 2020-0 Yes [id number] 250mg Take 0.5 [facility] in (CIPRO) 4-10 Tabs by Colleg e 500 MG 00:00: mouth two of tablet 00 times Medicin daily. e nitrofurant 2019-0 2020- No [id number] 100mg Take 1 Cap [place] oin, 3-24 05-26 by mouth [place] macrocrysta 00:00: 00:00 two times of l-monohydra 00 :00 daily. Medici n te, e (MACROBID) 100 MG capsule hydrochloro 2020-0 Yes 12.5mg Take 12.5 [place] thiazide 3-03 mg by College (MICROZIDE) 19:57: mouth. of 12.5 MG 11 Medicin capsule e hydrochloro 2020-0 Yes 12.5mg Take 12.5 [facility] thiazide 3-03 mg by [place] (MICROZIDE) 19:57: mouth. of 12.5 MG 11 Medicin capsule e OMEPRAZOLE 2019-0 2020- No 40mg Take 40 mg [facility] OR 3-03 03-03 by mouth. College 19:55: 00:00 of 08 :00 Medicin e HYDROCHLORO 2020- No 12.5mg Take 12.5 [facility] THIAZIDE OR 303 03-03 mg by Colleg e 19:55: 00:00 mouth. of 05 :00 Medicin e omeprazole 2018-02 Yes [facility] (PRILOSEC) 2-14 College 40 MG 00:00: of capsule 00 Medicin e omeprazole 2018-02 Yes [facility] (PRILOSEC) 2-14 College 40 MG 00:00: of capsule 00 Medicin e omeprazole 2018-02 Yes [facility] (PRILOSEC) 2-14 College 40 MG 00:00: of capsule 00 Medicin e omeprazole 2018-02 Yes [facility] (PRILOSEC) 2-14 College 40 MG 00:00: of capsule 00 Medicin e hydroCHLORO Yes 12.5mg Take 12.5 Univers thiazide 7-26 mg by ity of 12.5 mg 13:04: mouth [place] capsule 15 daily. Medical Branch Calcium Yes 1{each} Take 1-2 Uni vers Carbonate-M 7-26 Each by ity o f ag Hydroxid 13:04: [place] (ROLAIDS[place] 15 needed. Medical 550-110 mg Branch Chew hydroCHLORO Yes 12.5mg Take 12.5 Univers thiazide 7-26 mg by ity of 12.5 mg 13:04: mouth [place] capsule 15 daily. Medical Branch Calcium Yes 1{each} Take 1-2 Uni vers Carbonate-M 7-26 Each by ity o f [place] Hydroxid 13:04: mouth [place] (ROLAIDS) 15 needed. Medical 550-110 mg Branch Chew Nitrofurant Nitrofurant No Nitrofuran oin oin toin Macrocrysta Macrocrysta Macrocryst l l al Tamsulosin Tamsulosin No Tamsulosin HCl HCl HCl Ciprofloxac Ciprofloxac No Ciprofloxa in HCl in HCl norris HCl Alfuzosin Alfuzosin No Alfuzosin HCl ER HCl ER HCl ER D-Mannose D-Mannose No D-Mannose Claritin Claritin No Claritin Amoxicillin Amoxicillin No Amoxicilli -Pot -Pot n-Pot Clavulanate Clavulanate Clavulanat e hydroCHLORO hydroCHLORO No hydroCHLOR thiazide thiazide Othiazide Nitrofurant Nitrofurant No Nitrofuran oin Monohyd oin Monohyd toin Macro Macro Monohyd Macro Omeprazole Omeprazole No Omeprazole Diclofenac Diclofenac No Diclofenac Sodium 1 % Sodium 1 % Sodium 1 % Nitrofurant Nitrofurant No Nitrofuran oin oin toin Macrocrysta Macrocrysta Macrocryst l l al Tamsulosin Tamsulosin No Tamsulosin HCl HCl HCl Ciprofloxac Ciprofloxac No Ciprofloxa in HCl in HCl norris HCl Alfuzosin Alfuzosin No Alfuzosin HCl ER HCl ER HCl ER D-Mannose D-Mannose No D-Mannose Claritin Claritin No Claritin Amoxicillin Amoxicillin No Amoxicilli -Pot -Pot n-Pot Clavulanate Clavulanate Clavulanat e hydroCHLORO hydroCHLORO No hydroCHLOR thiazide thiazide Othiazide Nitrofurant Nitrofurant No Nitrofuran oin Monohyd oin Monohyd toin Macro Macro Monohyd Macro Omeprazole Omeprazole No Omeprazole Diclofenac Diclofenac No Diclofenac Sodium 1 % Sodium 1 % Sodium 1 % Omeprazole Omeprazole No Omeprazole hydroCHLORO hydroCHLORO No hydroCHLOR thiazide thiazide Othiazide Tamsulosin Tamsulosin No Tamsulosin HCl HCl HCl Alfuzosin Alfuzosin No Alfuzosin HCl ER HCl ER HCl ER D-Mannose D-Mannose No D-Mannose Diclofenac Diclofenac No Diclofenac Sodium 1 % Sodium 1 % Sodium 1 % Nitrofurant Nitrofurant No Nitrofuran oin Monohyd oin Monohyd toin Macro Macro Monohyd Macro Amoxicillin Amoxicillin No Amoxicilli -Pot -Pot n-Pot Clavulanate Clavulanate Clavulanat e Nitrofurant Nitrofurant No Nitrofuran oin oin toin Macrocrysta Macrocrysta Macrocryst l l al Ciprofloxac Ciprofloxac No Ciprofloxa in HCl in HCl norris HCl Claritin Claritin No Claritin Nitrofurant Nitrofurant No Nitrofuran oin oin toin Macrocrysta Macrocrysta Macrocryst l l al hydroCHLORO hydroCHLORO No hydroCHLOR thiazide thiazide Othiazide D-Mannose D-Mannose No D-Mannose Claritin Claritin No Claritin Amoxicillin Amoxicillin No Amoxicilli -Pot -Pot n-Pot Clavulanate Clavulanate Clavulanat e Diclofenac Diclofenac No Diclofenac Sodium 1 % Sodium 1 % Sodium 1 % Alfuzosin Alfuzosin No Alfuzosin HCl ER HCl ER HCl ER Ciprofloxac Ciprofloxac No Ciprofloxa in HCl in HCl norris HCl Omeprazole Omeprazole No Omeprazole Nitrofurant Nitrofurant No Nitrofuran oin Monohyd oin Monohyd toin Macro Macro Monohyd Macro Tamsulosin Tamsulosin No Tamsulosin HCl HCl HCl Omeprazole Omeprazole No Omeprazole Alfuzosin Alfuzosin No Alfuzosin HCl ER HCl ER HCl ER Claritin Claritin No Claritin hydroCHLORO hydroCHLORO No hydroCHLOR thiazide thiazide Othiazide Diclofenac Diclofenac No Diclofenac Sodium 1 % Sodium 1 % Sodium 1 % Nitrofurant Nitrofurant No Nitrofuran oin Monohyd oin Monohyd toin Macro Macro Monohyd Macro Tamsulosin Tamsulosin No Tamsulosin HCl HCl HCl Nitrofurant Nitrofurant No Nitrofuran oin oin toin Macrocrysta Macrocrysta Macrocryst l l al D-Mannose D-Mannose No D-Mannose Ciprofloxac Ciprofloxac No Ciprofloxa in HCl in HCl norris HCl Amoxicillin Amoxicillin No Amoxicilli -Pot -Pot n-Pot Clavulanate Clavulanate Clavulanat e Omeprazole Omeprazole No Omeprazole Tamsulosin Tamsulosin No Tamsulosin HCl HCl HCl Ciprofloxac Ciprofloxac No Ciprofloxa in HCl in HCl norris HCl Alfuzosin Alfuzosin No Alfuzosin HCl ER HCl ER HCl ER D-Mannose D-Mannose No D-Mannose Claritin Claritin No Claritin Amoxicillin Amoxicillin No Amoxicilli -Pot -Pot n-Pot Clavulanate Clavulanate Clavulanat e Nitrofurant Nitrofurant No Nitrofuran oin oin toin Macrocrysta Macrocrysta Macrocryst l l al Nitrofurant Nitrofurant No Nitrofuran oin Monohyd oin Monohyd toin Macro Macro Monohyd Macro hydroCHLORO hydroCHLORO No hydroCHLOR thiazide thiazide Othiazide Diclofenac Diclofenac No Diclofenac Sodium 1 % Sodium 1 % Sodium 1 % Vital Signs Vital Name Observation Time Observation Value Comments Source height 2021-08-30 10:15:00 62.5 [in_i] Common S pirit - [facility] weight 2021-08-30 10:15:00 120.0 [lb_av] Common [facility] temperature 2021-08-30 10:15:00 97.4 [degF] [facility] 2021-08-30 10:15:00 21.6 kg/m2 Common [facility] oximetry 2021-08-30 10:15:00 98 % Common [facility] respiratory rate 2021-08-30 10:15:00 16 /min Comm on [facility] blood pressure 2021-08-30 10:15:00 188 mm[Hg] Common [facility] - systolic [facility] blood pressure 2021-08-30 10:15:00 78 mm[Hg] Common [facility] - diastolic [facility] height 2021-07-26 11:15:00 62.5 [in_i] Common [facility] weight 2021-07-26 11:15:00 121.6 [lb_av] [facility] temperature 2021-07-26 11:15:00 97.9 [degF] Common [facility] bmi 2021-07-26 11:15:00 21.88 kg/m2 [facility] oximetry 2021-07-26 11:15:00 96 % [facility] S [facility] respiratory rate 2021-07-26 11:15:00 18 /min Comm on [facility] blood pressure 2021-07-26 11:15:00 162 mm[Hg] Common [facility] - systolic [facility] blood pressure 2021-07-26 11:15:00 68 mm[Hg] Common [facility] - diastolic [facility] respiratory rate 2021-05-31 09:00:00 16 /min Comm on [facility] blood pressure 2021-05-31 09:00:00 233 mm[Hg] Common [facility] - systolic [facility] blood pressure 2021-05-31 09:00:00 102 mm[Hg] Common [facility] - diastolic [facility] height 2021-05-31 09:00:00 62.5 [in_i] Common [facility] weight 2021-05-31 09:00:00 117 [lb_av] Common [facility] temperature 2021-05-31 09:00:00 97 [degF] [facility] bmi 2021-05-31 09:00:00 21.06 kg/m2 Common [facility] oximetry 2021-05-31 09:00:00 96 % [facility] height 2021-05-03 11:00:00 62.5 [in_i] Common [facility] weight 2021-05-03 11:00:00 117.2 [lb_av] [facility] temperature 2021-05-03 11:00:00 98.6 [degF] [facility] bmi 2021-05-03 11:00:00 21.09 kg/m2 [facility] oximetry 2021-05-03 11:00:00 99 % [facility] respiratory rate 2021-05-03 11:00:00 16 /min Comm on [facility] blood pressure 2021-05-03 11:00:00 166 mm[Hg] Common [facility] - systolic [facility] blood pressure 2021-05-03 11:00:00 76 mm[Hg] Common [facility] - diastolic [facility] Systolic blood 2020-11-22 16:30:00 194 mm[Hg] Univer sity of pressure [facility] Diastolic blood 2020-11-22 16:30:00 72 mm[Hg] Unive rsity of pressure [facility] Heart rate 2020-11-22 16:30:00 73 /min Universi ty [facility] Oxygen saturation in 2020-11-22 16:30:00 100 /min [facility] Arterial blood by [facility] Pulse oximetry Branch Body temperature 2020-11-22 16:20:00 36.39 [place] [facility] Respiratory rate 2020-11-22 16:20:00 16 /min [facility] Body height 2020-11-21 17:07:00 162.6 cm [facility] Body weight 2020-11-21 17:07:00 51.256 kg [facility] BMI 2020-11-21 17:07:00 19.40 kg/m2 Universi ty of [facility] Systolic blood 2020-11-22 16:30:00 194 mm[Hg] Univer sity of pressure [facility] Diastolic blood 2020-11-22 16:30:00 72 mm[Hg] Unive rsity of pressure [facility] Heart rate 2020-11-22 16:30:00 73 /min Universi ty of [facility] Oxygen saturation in 2020-11-22 16:30:00 100 /min University of Arterial blood by [facility] Pulse oximetry Branch Body temperature 2020-11-22 16:20:00 36.39 [place] [facility] ersity of [facility] Respiratory rate 2020-11-22 16:20:00 16 /min Univ ersity of [facility] Body height 2020-11-21 17:07:00 162.6 cm [facility] Body weight 2020-11-21 17:07:00 51.256 kg [facility] BMI 2020-11-21 17:07:00 19.40 kg/m2 Universi ty of [facility] Systolic blood 2020-01-21 20:49:00 209 mm[Hg] [facility] Medicine Diastolic blood 2020-01-21 20:49:00 82 mm[Hg] [facility] of pressure Medicine Heart rate 2020-01-21 20:49:00 85 /min [facility] Systolic blood 2020-01-21 20:49:00 209 mm[Hg] [facility] Diastolic blood 2020-01-21 20:49:00 82 mm[Hg] [facility] of pressure Medicine Heart rate 2020-01-21 20:49:00 85 /min [facility] Systolic blood 2019-07-13 19:01:00 154 mm[Hg] [facility] pressure Medicine Diastolic blood 2019-07-13 19:01:00 69 mm[Hg] [facility] pressure Medicine Heart rate 2019-07-13 19:01:00 109 /min [facility] ollege of [facility] Body temperature 2019-07-13 19:01:00 36.83 [place] [facility] Systolic blood 2019-07-13 19:01:00 154 mm[Hg] [facility] pressure Medicine Diastolic blood 2019-07-13 19:01:00 69 mm[Hg] [facility] pressure Medicine Heart rate 2019-07-13 19:01:00 109 /min [facility] ollege of [facility] Body temperature 2019-07-13 19:01:00 36.83 [place] [facility] Systolic blood 2019-05-04 18:45:00 205 mm[Hg] [facility] pressure Medicine Diastolic blood 2019-05-04 18:45:00 78 mm[Hg] [facility] pressure Medicine Heart rate 2019-05-04 18:45:00 93 /min [facility] Body temperature 2019-05-04 18:45:00 36.61 [place] [facility] Body height 2019-05-04 18:45:00 162.6 cm [facility] Systolic blood 2019-05-04 18:45:00 205 mm[Hg] [facility] pressure Medicine Diastolic blood 2019-05-04 18:45:00 78 mm[Hg] [facility] Heart rate 2019-05-04 18:45:00 93 /min [facility] Body temperature 2019-05-04 18:45:00 36.61 [place] [facility] Body height 2019-05-04 18:45:00 162.6 cm [facility] Systolic blood 2019-04-20 19:38:00 193 mm[Hg] [facility] pressure Medicine Diastolic blood 2019-04-20 19:38:00 85 mm[Hg] [facility] pressure Medicine Heart rate 2019-04-20 19:38:00 86 /min [facility] Body temperature 2019-04-20 19:38:00 36.72 [place] [facility] Respiratory rate 2019-04-20 19:38:00 18 /min [facility] Body height 2019-04-20 19:38:00 162.6 cm [facility] ollege [facility] Body weight 2019-04-20 19:38:00 58.968 kg [facility] BMI 2019-04-20 19:38:00 22.31 kg/m2 [facility] Systolic blood 2019-04-20 19:38:00 193 mm[Hg] [facility] pressure Medicine Diastolic blood 2019-04-20 19:38:00 85 mm[Hg] [facility] Medicine Heart rate 2019-04-20 19:38:00 86 /min [facility] Body temperature 2019-04-20 19:38:00 36.72 [place] [facility] Respiratory rate 2019-04-20 19:38:00 18 /min [facility] Body height 2019-04-20 19:38:00 162.6 cm [facility] Body weight 2019-04-20 19:38:00 58.968 kg [facility] BMI 2019-04-20 19:38:00 22.31 kg/m2 [facility] Procedures Procedure Date / Time Performing Clinician Source Performed PHACOEMULSIFICATION OF 2020-11-22 Herberth Oglesby [facility] CATARACT WITH INTRAOCULAR 15:47:00 Medica l Branch LENS IMPLANT ASSIGNMENT OF BENEFITS 2020-11-20 Doctor Unassigned, [facility] 19:22:12 [facility] POCT URINALYSIS DIPSTICK 2019-04-20 Jose Roberts [facility] 00:00:00 Medicine Plan of Care Planned Activity Planned Date Details Comments Source Future Scheduled TETANUS SHOT (ADULT) [facility] Test [code = TETANUS SHOT of Medi cine (ADULT)] Future Scheduled ZOSTER VACCINE (1 of [facility] Test 2) [code = ZOSTER of Medicin e VACCINE (1 of 2)] Future Scheduled MEDICARE AWV [facility] [employer] Test (Initial) [code = of Medicin e MEDICARE AWV (Initial)] Future Scheduled FALL SCREEN [code = [facility] [place] Test FALL SCREEN] of Medicine Future Scheduled OSTEOPOROSIS [facility] Test SCREENING [code = of Medicin e OSTEOPOROSIS SCREENING] Future Scheduled PNEUMOVAX >=65 [facility] Test (PPSV23) [code = of Medicine PNEUMOVAX >=65 (PPSV23)] Future Scheduled FLU VACCINE > 6 [facility] C ollege Test MONTHS [code = FLU of Medici ne VACCINE > 6 MONTHS] Future Scheduled CULTURE, Ordered: 04/20/2019 [employer] Test URINE/SENSITIVITY ON of Medi cine ALL [code = 34530-4] Future Scheduled URINALYSIS AUTO Ordered: 04/20/2019 [employer] Test W/SCOPE [code = of Medicine 34743-6] Future Scheduled TETANUS SHOT (ADULT) [place] [employer] Test [code = TETANUS SHOT of Medi cine (ADULT)] Future Scheduled MEDICARE AWV [facility] Test (Initial) [code = of Medicin e MEDICARE AWV (Initial)] Future Scheduled FALL SCREEN [code = [employer] [facility] FALL SCREEN] of Medicine Future Scheduled OSTEOPOROSIS [facility] Test SCREENING [code = of Medicin e OSTEOPOROSIS SCREENING] Future Scheduled PNEUMOVAX >=65 [facility] Test (PPSV23) [code = of Medicine PNEUMOVAX >=65 (PPSV23)] Future Scheduled PREVNAR >= 65 [facility] Test (PCV13) [code = of Medicine PREVNAR >= 65 (PCV13)] Future Scheduled FLU VACCINE > 6 [employer] [facility] Test MONTHS [code = FLU of Medici ne VACCINE > 6 MONTHS] Future Scheduled TETANUS SHOT (ADULT) [place] [employer] Test [code = TETANUS SHOT of Medi cine (ADULT)] Future Scheduled MEDICARE AWV [employer] Test (Initial) [code = of Medicin e MEDICARE AWV (Initial)] Future Scheduled FALL SCREEN [code = [employer] [facility] FALL SCREEN] of Medicine Future Scheduled OSTEOPOROSIS [facility] Test SCREENING [code = of Medicin e OSTEOPOROSIS SCREENING] Future Scheduled PNEUMOVAX >=65 [employer] Test (PPSV23) [code = of Medicine PNEUMOVAX >=65 (PPSV23)] Future Scheduled PREVNAR >= 65 [facility] Test (PCV13) [code = of Medicine PREVNAR >= 65 (PCV13)] Future Scheduled FLU VACCINE > 6 [employer] [facility] Test MONTHS [code = FLU of Medici ne VACCINE > 6 MONTHS] Future Scheduled URINALYSIS AUTO Ordered: 07/13/2019 [employer] Test W/SCOPE [code = of Medicine 92961-2] Future Scheduled TETANUS SHOT (ADULT) [place] [employer] Test [code = TETANUS SHOT of Medi cine (ADULT)] Future Scheduled MEDICARE AWV [facility] Test (Initial) [code = of Medicin e MEDICARE AWV (Initial)] Future Scheduled FALL SCREEN [code = [employer] [facility] FALL SCREEN] of Medicine Future Scheduled OSTEOPOROSIS [facility] Test SCREENING [code = of Medicin e OSTEOPOROSIS SCREENING] Future Scheduled PNEUMOVAX >=65 [facility] Test (PPSV23) [code = of Medicine PNEUMOVAX >=65 (PPSV23)] Future Scheduled PREVNAR >= 65 [employer] [facility] Test (PCV13) [code = of Medicine PREVNAR >= 65 (PCV13)] Future Scheduled FLU VACCINE > 6 [facility] C ollege Test MONTHS [code = FLU of Medici ne VACCINE > 6 MONTHS] Future Scheduled CULTURE, Ordered: 07/23/2019 [employer] [facility] URINE/SENSITIVITY ON of Medi cine ALL [code = 92192-5] Future Scheduled URINALYSIS AUTO Ordered: 07/23/2019 [employer] Test W/SCOPE [code = of Medicine 87622-1] Future Scheduled TETANUS SHOT (ADULT) [place] [employer] Test [code = TETANUS SHOT of Medi cine (ADULT)] Future Scheduled MEDICARE AWV [facility] Test (Initial) [code = of Medicin e MEDICARE AWV (Initial)] Future Scheduled FALL SCREEN [code = [employer] [facility] FALL SCREEN] of Medicine Future Scheduled OSTEOPOROSIS [facility] Test SCREENING [code = of Medicin e OSTEOPOROSIS SCREENING] Future Scheduled PNEUMOVAX >=65 [employer] [facility] [employer] Test (PPSV23) [code = of Medicine PNEUMOVAX >=65 (PPSV23)] Future Scheduled PREVNAR >= 65 [employer] [facility] Test (PCV13) [code = of Medicine PREVNAR >= 65 (PCV13)] Future Scheduled FLU VACCINE > 6 [employer] [facility] Test MONTHS [code = FLU of Medici ne VACCINE > 6 MONTHS] Future Scheduled CYSTOSCOPY [code = 1 Occurrences [employer] Test 661811117] starting 07/23/2019 of Medic ine until 07/22/2020 Future Scheduled CYSTOSCOPY [code = 1 Occurrences [employer] Test 863353755] starting 07/13/2019 of Medic ine until 07/12/2020 Future Scheduled CULTURE, 2 Occurrences [facility] Test URINE/SENSITIVITY ON starting 07/13/2019 of Medicine ALL [code = 15476-0] until 07/12/2020 Future Scheduled US RENAL BILATERAL 1 Occurrences [employer] Test [code = 41773] starting 04/20/2019 of Med icine until 04/19/2020 Encounters Start End Encounter Admission Attending Care Care Encounter Source Date/Time Date/Time Type Type Clinicians Facility Department ID 2021-09-13 Outpatient STLMLC STLMLC [id number] Common 14:11:01 [facility] 2021-08-14 Outpatient STLMLC STLMLC [id number] Common 10:59:01 [facility] 2021-05-23 Outpatient STLMLC STLMLC [id number] Common 16:00:02 [facility] 2021-03-14 Outpatient zzzLong, STLMLC STLMLC [id number] Common 14:35:35 Breanna [facility] 2021-03-14 Outpatient zzzLong, STLMLC STLMLC [id number] 2 Common 12:09:36 Breanna [id number] [facility] 2021-03-14 Outpatient zzzLong, STLMLC STLMLC [id number] Common 12:02:34 Breanna [id number] [facility] 2020-12-19 Outpatient Rogelio OGLESBY DCMEENA OPH [id number] Univers 03:44:32 HERBERTH lowe [facility] 2021-08-30 2021-08-30 (PROC) STLMLC STLMLC [id number] Co mmon 00:00:00 00:00:00 Procedure [facility] 2021-07-26 2021-07-26 OFFICE STLMLC STLMLC [id number] Co mmon 00:00:00 00:00:00 VISIT EST Spir it PT LEVEL 3 - [facility] 2021-06-20 2021-06-20 (PROC) STLMLC STLMLC [id number] Co mmon 00:00:00 00:00:00 Procedure [facility] 2021-05-31 2021-05-31 OFFICE STLMLC STLMLC [id number] Co mmon 00:00:00 00:00:00 VISIT Yannick ESTAB PT - [facility]I LEVEL 2 [facility] 2021-05-07 2021-05-07 (TEL) STLMLC STLMLC [id number] Co mmon 00:00:00 00:00:00 Spirit - [facility] 2021-05-03 2021-05-03 OFFICE STLMLC STLMLC [id number] Co mmon 00:00:00 00:00:00 VISIT NEW Spir it PT LEVEL 2 - [facility] 2020-11-22 2020-11-22 Hospital [facility] [id number] Univers 09:03:00 11:57:00 Encounter Herberth Yen 350.1.13.10 [place] [id number] [facility] 071 Branch 2020-11-22 2020-11-22 Surgery [facility] [id number] [id number] Univers 10:50:00 11:33:00 Herberth Yen 350.1.13.10 [place] [id number] [facility] 020 Branch 2020-11-20 2020-11-20 Outpatient R MENDEL [facility] [id number] Univers 14:45:00 14:45:00 HERBERTH lowe [facility] 2020-11-20 2020-11-20 Laboratory Only, Adc Test [facility] 1.2.840. 114 [id number] Univers 14:20:49 14:35:49 Only Herberth Oglesby 350.1.13.1 0 [place] [id number] [place] [address] Branch 2020-11-20 2020-11-20 Orders Doctor MEGHAN 1.2.840.114 [id number] Univers 00:00:00 00:00:00 Only Unassigned, OLAMIDE 350.1.13.10 ity of [place] [facility] 4.2.7.2.686 Ronan as [id number] [facility] 009 Branch 2020-02-07 2020-02-07 Outpatient STLMLC STLC [id number] Common 00:00:00 00:00:00 [facility] 2020-02-07 2020-02-07 Outpatient STLMLC STLMLC [id number] Common 00:00:00 00:00:00 [facility] 2020-01-21 2020-01-21 Office JAMILA Roberts 1.2.840.114 [id number] [facility] 13:40:24 14:56:25 Visit Christopher AMBULATOR 350.1.13.21 College P Y 0.2.7.2.686 of [id number] [facility] 300 e 2020-01-21 2020-01-21 Office JAMILA Roberts 1.2.840.114 [id number] 13:40:24 14:56:25 Visit Christopher AMBULATOR 350.1.13.21 P Y 0.2.7.2.686 [id number] 300 2019-12-23 2019-12-23 Outpatient STLC STLC [id number] Common 00:00:00 00:00:00 [facility] 2019-07-23 2019-07-23 Office JAMILA Roberts 1.2.840.114 [id number] 13:50:00 14:00:00 Visit Christopher AMBULATOR 350.1.13.21 P Y 0.2.7.2.686 [id number] 300 2019-07-23 2019-07-23 JAMILA Bruno 1.2.840.[id number] [place] [address] 13:50:00 14:00:00 Visit Christopher AMBULATOR 350.1.13.21 College P Y 0.2.7.2.686 of [id number] [facility] 300 e 2019-07-13 2019-07-13 JAMILA Bruno 1.2.840.114 [id number] 00 13:51:37 14:54:24 Visit Christopher AMBULATOR 350.1.13.21 P Y 0.2.7.2.686 [id number] 300 2019-07-13 2019-07-13 JAMILA Bruno 1.2.840.114 [id number] [facility] 13:51:37 14:54:24 Visit Christopher AMBULATOR 350.1.13.21 College P Y 0.2.7.2.686 of [id number] [facility] 300 e 2019-05-04 2019-05-04 JAMILA Bruno 1.2.840.114 [id number] 13:21:00 13:31:00 Visit Christopher AMBULATOR 350.1.13.21 P Y 0.2.7.2.686 [id number] 300 2019-05-04 2019-05-04 JAMILA Bruno 1.2.840.114 [id number] [facility] 13:21:00 13:31:00 Visit Christopher AMBULATOR 350.1.13.21 College P Y 0.2.7.2.686 of [id number] [facility] 300 e 2019-04-20 2019-04-20 Office JAMILA Roberts 1.2.840.114 [id number] 13:06:12 15:12:28 Visit Christopher AMBULATOR 350.1.13.21 P Y 0.2.7.2.686 [id number] 300 2019-04-20 2019-04-20 JAMILA Bruno 1.2.840.[id number] [place] [address] 13:06:12 15:12:28 Visit Christopher AMBULATOR 350.1.13.21 College P Y 0.2.7.2.686 of [id number] [facility] 300 e Results Test Description Test Time Test Comments Results Result Comments Source POCT URINALYSIS DIPSTICK 2019-04-20 00:00:00 Test Item Value Reference Range Interpretation Comme nts COLOR UA (test code = 5778-6) Yellow YELLOW/STRAW CLARITY UA (test code = 60229-5) Clear CLEAR GLUCOSE UA (test code = 5792-7) Negative NEGATIVE BILIRUBIN UA (test code = 5770-3) Negative NEGATIVE KETONES UA (test code = 05520-2) Negative NEGATIVE SPECIFIC GRAVITY UA (test code = 5811-5) 1.005-1.035 A BLOOD UA (test code = 5794-3) Moderate 2+ NEGATIVE PH UA (test code = 5803-2) 5-9 PROTEIN UA (test code = 5804-0) Negative NEGATIVE UROBILINOGEN UA (test code = 5818-0) 0.02 E.U/DL NORMAL MG/DL LEUKOCYTE ESTERASE UA (test code = 5799-2) Negative NEGATIVE NITRITE UA (test code = 5802-4) Negative NEGATIVE REDUCING SUBSTANCES URINE (test code = 68994-4) Lab Interpretation (test code = 21534-8) Abnormal [facility]
--- NOTE | 2022-04-27 19:09 | RAD REPORT ---
EXAM DESCRIPTION: [facility] Protocol - 04/27/2022 6:48 pm CLINICAL HISTORY: FLANK PAIN COMPARISON: Abdomen Pelvis Wo Contrast dated 04/02/2019; CT ABDOMEN PELVIS WO CONTRAST dated 012; PET CTSKULL THIGH dated 06/29/2007 TECHNIQUE: CT of the abdomen and pelvis was performed. All CT scans are performed using dose optimization technique as appropriate and may include automated exposure control or mA/KV adjustment according to patient size. FINDINGS: Lower chest: Small hiatal hernia. Liver: No acute abnormality or suspicious lesions. Biliary: No biliary ductal dilatation. Stomach: No significant focal abnormality. Duodenum: No significant focal abnormality. Pancreas: No significant abnormality. Spleen: No significant abnormality. Adrenal: No suspicious lesions. Kidney/ureter: Right renal collecting system and ureteral fullness. No sari hydronephrosis. No renal calculi. Right-sided perinephric stranding. Unchanged complex left renal lesion measuring approximat rosalia 12 millimeters in the interpolar aspect of the left kidney. Retroperitoneum: No retroperitoneal adenopathy. Vascular: No aneurysm. Bowel: Along the right aspect of the distal sigmoid is not outpouching of tear that may be from a rem ote contained perforation. It is similar to 04/02/2019.. Peritoneum: No ascites or free air. Bladder: Irregular bladder wall thickening with multiple bladder diverticulum. Reproductive: Hysterectomy. Bones: No acute fracture. Multilevel degenerative changes are present in the spine. Other: n/a IMPRESSION: Right-sided perinephric stranding and mild renal pelvic an and ureteral fullness could b e secondary to an ascending urinary tract infection or recently passed stone. No ureteral calculi zandra ntified.
[2022-04-27 19:27] LABS: Urine Blood 2+ (Negative); Urine Glucose Negative (Negative); Urine Protein 3+ (Negative); Urine Specific Gravity 1.015 (1.005-1.030)
[2022-04-27] MEDS ORDERED: NA CHLORIDE 0.9% 1,000 ML ONE (19:34)
[2022-04-27 19:36] LABS: Urine Bacteria None Seen /HPF (<20)
[2022-04-27 19:53] LABS: Absolute Lymphocytes (CBC) 0.8 K/uL (0.7-4.9); Lymphocytes % 6.1 % (15.3-44.8); MCV 86.5 fL (80-100); MPV 7.2 fL (7.6-11.3); RBC Red Blood Cell Count 3.35 M/uL (3.86-4.86)
[2022-04-27 20:10] LABS: Albumin 3.6 g/dL (3.4-5.0); Bilirubin Total 0.8 mg/dL (0.2-1.0); Potassium 3.6 mmol/L (3.5-5.1); Protein, Total 8.6 g/dL (6.4-8.2)
[2022-04-27] MEDS ORDERED: NA CHLORIDE 0.9% 50 ML ONE (20:51)
[2022-04-27] MEDS ORDERED: CEFTRIAXONE 1000 MG/VIAL ONE (20:51)
[2022-04-27] MEDS ORDERED: NA CHLORIDE 0.9% 500 ML ONE (20:51)
[2022-04-28 00:40] VITALS: TEMP 98
[2022-04-28 00:44] VITALS: BP 135/60; O2SAT 99
--- NOTE | 2022-05-10 16:03 | ER ---
Nurse's Notes [facility] Name: Camilla Hutchison Age: 86 yrs Sex: Female : 1935 Arrival Date: 04/27/2022 Time: 17:42 Bed 20 Private MD: Diagnosis: UTI/ Urinary tract infection, site not specified Presentation: 04/27 18:06 Chief complaint: Patient states: "I woke up in the night and was shaking. I've been mb9 coughing up mucous. My lower stomach hurts and my back hurts and I feel like I have a kidney stone". Coronavirus screen: Vaccine status: Patient reports being unvaccinated. Ebola Screen: No symptoms or risks identified at this time. Initial Sepsis Screen: Does the patient meet any 2 criteria? No. Patient's initial sepsis screen is negative. Does the patient have a suspected source of infection? No. Patient's initial sepsis screen is negative. Risk Assessment: Do you want to hurt yourself or someone else? Patient reports no desire to harm self or others. Onset of symptoms was April 27, 2022. 18:06 Method Of Arrival: Ambulatory mb9 18:06 Acuity: EUGENIO 3 mb9 Historical: - Allergies: 18:09 Ibuprofen; mb9 18:09 Levaquin; mb9 18:09 Sulfa (Sulfonamide Antibiotics); mb9 18:09 PENICILLINS; mb9 18:09 Iodinated Contrast Media - IV Dye; mb9 - PMHx: 18:09 Hypertension; mb9 - PSHx: 18:09 Total abdominal hysterectomy; mb9 - Immunization history:: Adult Immunizations up to date. - Social history:: Smoking status: Patient denies any tobacco usage or history of. Screenin:10 [facility] ED Fall Risk Assessment (Adult) History of falling in the last 3 months, mb9 including since admission No falls in past 3 months (0 pts). [facility] ED Fall Risk Assessment (Adult) Confusion or Disorientation No (0 pts) Intoxicated or Sedated No (0 pts) Impaired Gait No (0 pts) Mobility Assist Device Used No (0 pt) Altered Elimination No (0 pt) Score/Fall Risk Level 0 - 2 = Low Risk Oriented to surroundings, Maintained a safe environment. Abuse screen: Denies threats or abuse. Nutritional screening: No deficits noted. Tuberculosis screening: No symptoms or risk factors identified. Assessment: 18:10 General: Appears in no apparent distress. comfortable, Behavior is calm, cooperative, kc6 appropriate for age. Pain: Denies pain. Neuro: Brasher Agitation-Sedation Scale (RASS): 0 - Alert and Calm Level of Consciousness is awake, alert, obeys commands, Oriented to person, place, time, situation, Appropriate for age. Cardiovascular: Capillary refill < 3 seconds. Respiratory: Airway is patent Trachea midline Respiratory effort is even, unlabored, Respiratory pattern is regular, symmetrical, Breath sounds are clear. GI: No signs and/or symptoms were reported involving the gastrointestinal system. EENT: No signs and/or symptoms were reported regarding the EENT system. Derm: No signs and/or symptoms reported regarding the dermatologic system. Skin is intact, Skin is pink, warm \\T\\ dry. Musculoskeletal: No signs and/or symptoms reported regarding the musculoskeletal system. Circulation, motion, and sensation intact. Capillary refill < 3 seconds, Range of motion: intact in all extremities. 19:40 General: Appears comfortable, Behavior is calm, cooperative. Pain: Denies pain. Neuro: ha1 Level of Consciousness is awake, alert, obeys commands, Oriented to person, place, time, situation, Reports weakness generalized. Cardiovascular: Capillary refill < 3 seconds Patient's skin is warm and dry. Respiratory: Airway is patent Trachea midline Respiratory effort is even, unlabored, Respiratory pattern is regular, symmetrical, Breath sounds are clear bilaterally. Musculoskeletal: Circulation, motion, and sensation intact. Range of motion: intact in all extremities. 20:40 Reassessment: Patient and/or family updated on plan of care and expected duration. Pain ha1 level reassessed. Patient is alert, oriented x 3, equal unlabored respirations, skin warm/dry/pink. 21:40 Reassessment: Patient and/or family updated on plan of care and expected duration. Pain ha1 level reassessed. Patient is alert, oriented x 3, equal unlabored respirations, skin warm/dry/pink. Vital Signs: 18:06 BP 172 / 81; Pulse 99; Resp 18; Temp 98(O); Pulse Ox 99% ; Weight 56.7 kg; Height 5 ft. mb9 3 in. ; Pain 0/10; 19:30 BP 127 / 51; Pulse 82; Resp 16; Pulse Ox 100% on R/A; ha1 20:30 BP 128 / 61; Pulse 83; Resp 19 S; Pulse Ox 100% on R/A; ha1 21:40 BP 135 / 60; Pulse 78; Resp 18 S; Pulse Ox 99% on R/A; ha1 18:06 Body Mass Index 22.14 (56.70 kg, 160.02 cm) mb9 18:06 Pain Scale: Adult mb9 ED Course: 17:42 Patient arrived in ED. jj6 18:09 Triage completed. mb9 18:09 Arm band placed on. mb9 18:29 Kylee Duarte FNP-C is PHCP. snw 18:29 Adam Rodriguez MD is Attending Physician. snw 18:44 Candice Mcarthur, KATHYA is Primary Nurse. kc6 18:45 Patient has correct armband on for positive identification. Placed in gown. Bed in low kc6 position. Call light in reach. Side rails up X2. Adult w/ patient. 18:[address] In Process Unspecified. EDMS 19:46 Inserted saline lock: 20 gauge in right antecubital area, using aseptic technique. rv1 Blood collected. 19:47 Urine Culture Sent. rv1 19:47 CBC with Diff Sent. rv1 19:47 CMP Sent. rv1 22:46 Blood Culture Adult (2) Sent. rv1 22:59 No provider procedures requiring assistance completed. ha1 22:59 IV discontinued, intact, bleeding controlled, No redness/swelling at site. Pressure ha1 dressing applied. Administered Medications: 19:40 Drug: NS 0.9% IV 1000 ml Route: IV; Rate: 1 bolus; Site: left antecubital; ha1 20:50 Drug: Rocephin IV 1 grams Route: IV; Rate: calculated rate; Site: right antecubital; ha1 20:50 Drug: NS 0.9% IV 500 ml Route: IV; Rate: bolus; Site: right antecubital; ha1 Medication: 18:10 VIS not applicable for this client. mb9 Outcome: 22:20 Discharge ordered by . snw 22:59 Patient left the ED. ha1 22:59 Discharged to home via wheelchair, with family. ha1 22:59 Condition: stable 22:59 Discharge instructions given to patient, family, Instructed on discharge instructions, follow up and referral plans. medication usage, Demonstrated understanding of instructions, follow-up care, medications, Prescriptions given X 1. Signatures: Dispatcher [employer] EDMS Kylee Duarte, STATUARY PAINTER-C STATUARY PAINTER-Csnw Ricci Maddie [id number] Briana Cosby RN RN ha1 Candice Mcarthur RN RN kc6 Celia, Elham Yap RN RN mb9 Merary Brannon rv1 Corrections: (The following items were deleted from the chart) 22:52 19:47 LACTATE+C.LAB.BRZ drawn and sent. rv1 EDMS
--- NOTE | 2022-05-10 16:03 | EDPHYS ---
Physician Documentation [facility] Name: Camilla Hutchison Age: 86 yrs Sex: Female : 1935 Arrival Date: 04/27/2022 Time: 17:42 Bed 20 Private MD: ED Physician Adam Rodriguez HPI: 04/27 20:06 This 86 yrs old Female presents to ER via Ambulatory with complaints of Cough, snw Congestion, General Weakness, CHILLS. 20:06 The patient or guardian reports cough, described as moderate, coughing up phlegm. Pt snw self caths, has a hx of UTI frequently. Pt has been having left flank pain, awoke with chills and back pain this am. Historical: - Allergies: 18:09 Ibuprofen; mb9 18:09 Levaquin; mb9 18:09 Sulfa (Sulfonamide Antibiotics); mb9 18:09 PENICILLINS; mb9 18:09 Iodinated Contrast Media - IV Dye; mb9 - PMHx: 18:09 Hypertension; mb9 - PSHx: 18:09 Total abdominal hysterectomy; mb9 - Immunization history:: Adult Immunizations up to date. - Social history:: Smoking status: Patient denies any tobacco usage or history of. ROS: 20:07 Eyes: Negative for injury, pain, redness, and discharge, ENT: Negative for injury, snw pain, and discharge, Neck: Negative for injury, pain, and swelling, Cardiovascular: Negative for chest pain, palpitations, and edema, Respiratory: Negative for shortness of breath, cough, wheezing, and pleuritic chest pain, Abdomen/GI: Negative for abdominal pain, nausea, vomiting, diarrhea, and constipation. 20:07 MS/Extremity: Negative for injury and deformity, Skin: Negative for injury, rash, and discoloration, Neuro: Negative for headache, weakness, numbness, tingling, and seizure, Psych: Negative for depression, anxiety, suicide ideation, homicidal ideation, and hallucinations. 20:07 Constitutional: Positive for chills, malaise. 20:07 Back: Positive for flank pain, on the left. 20:07 : Positive for self caths. Exam: 20:05 Constitutional: This is a well developed, well nourished patient who is awake, alert, snw and in no acute distress. Head/Face: Normocephalic, atraumatic. Eyes: Pupils equal round and reactive to light, extra-ocular motions intact. Lids and lashes normal. Conjunctiva and sclera are non-icteric and not injected. Cornea within normal limits. Periorbital areas with no swelling, redness, or edema. ENT: Nares patent. No nasal discharge, no septal abnormalities noted. Tympanic membranes are normal and external auditory canals are clear. Oropharynx with no redness, swelling, or masses, exudates, or evidence of obstruction, uvula midline. Mucous membranes moist. Neck: Trachea midline, no thyromegaly or masses palpated, and no cervical lymphadenopathy. Supple, full range of motion without nuchal rigidity, or vertebral point tenderness. No Meningismus. Chest/axilla: Normal chest wall appearance and motion. Nontender with no deformity. No lesions are appreciated. Cardiovascular: Regular rate and rhythm with a normal S1 and S2. No gallops, murmurs, or rubs. Normal PMI, no JVD. No pulse deficits. Respiratory: Lungs have equal breath sounds bilaterally, clear to auscultation and percussion. No rales, rhonchi or wheezes noted. No increased work of breathing, no retractions or nasal flaring. Abdomen/GI: Soft, non-tender, with normal bowel sounds. No distension or tympany. No guarding or rebound. No evidence of tenderness throughout. 20:05 Skin: Warm, dry with normal turgor. Normal color with no rashes, no lesions, and no evidence of cellulitis. MS/ Extremity: Pulses equal, no cyanosis. Neurovascular intact. Full, normal range of motion. Neuro: Awake and alert, GCS 15, oriented to person, place, time, and situation. Cranial nerves II-XII grossly intact. Motor strength 5/5 in all extremities. Sensory grossly intact. Cerebellar exam normal. Normal gait. Psych: Awake, alert, with orientation to person, place and time. Behavior, mood, and affect are within normal limits. 20:05 Back: pain, that is mild, that is moderate, of the left mid back, CVA tenderness, that is moderate, is noted on the left. Vital Signs: 18:06 BP 172 / 81; Pulse 99; Resp 18; Temp 98(O); Pulse Ox 99% ; Weight 56.7 kg; Height 5 ft. mb9 3 in. ; Pain 0/10; 19:30 BP 127 / 51; Pulse 82; Resp 16; Pulse Ox 100% on R/A; ha1 20:30 BP 128 / 61; Pulse 83; Resp 19 S; Pulse Ox 100% on R/A; ha1 21:40 BP 135 / 60; Pulse 78; Resp 18 S; Pulse Ox 99% on R/A; ha1 18:06 Body Mass Index 22.14 (56.70 kg, 160.02 cm) mb9 18:06 Pain Scale: Adult mb9 MDM: 19:02 Patient medically screened. snw 20:08 Differential diagnosis: nephrolithiasis, pyelonephritis, UTI, kidney stones. Data snw reviewed: vital signs, nurses notes, lab test result(s), radiologic studies. Counseling: I had a detailed discussion with the patient and/or guardian regarding: the historical points, exam findings, and any diagnostic results supporting the discharge/admit diagnosis, the presence of at least one elevated blood pressure reading (>120/80) during this emergency department visit, lab results, radiology results. 22:19 ED course: Lactate was not sent as ordered. Pt is alert, oriented, able to take po snw meds, and promises to return to ED prn worsening, vomiting, high fever. . 04/27 18:29 Order name[facility] 04/27 18:29 Order name: Urine Microscopic Only; Complete Time: 19:42 [facility] 04/27 19:24 Order name: CBC with Diff; Complete Time: 20:04 [facility] 04/27 19:24 Order name: CMP; Complete Time: 20:14 [facility] 04/27 19:24 Order name: Blood Culture Adult (2[facility] 04/27 19:27 Order name: Urine Dipstick-Ancillary; Complete Time: 19:36 EDPR 04/27 18:29 Order name: Stone Protocol CT; Complete Time: 19:21 [facility] 04/27 18:29 Order name: Urine Dipstick-Ancillary (obtain specimen); Complete Time: 19:47 snw Administered Medications: 19:40 Drug: NS 0.9% IV 1000 ml Route: IV; Rate: 1 bolus; Site: left antecubital; ha1 20:50 Drug: Rocephin IV 1 grams Route: IV; Rate: calculated rate; Site: right antecubital; [facility] 20:50 Drug: NS 0.9% IV 500 ml Route: IV; Rate: bolus; Site: right antecubital; [facility] Disposition: 04/28 16:53 Co-signature as Attending Physician, Adam Rodriguez MD I reviewed the patient's care rt provided by the Advanced Practice Provider and agree with the diagnosis and treatment plan. Disposition Summary: 04/27/22 22:20 Discharge Ordered Location: Home snw Condition: Stable snw Diagnosis - UTI/ Urinary tract infection, site not specified snw Followup: snw - With: Emergency Department - When: As needed - Reason: Worsening of condition Followup: snw - With: Private Physician - When: 2 - 3 days - Reason: Recheck today's complaints, Continuance of care, Re-evaluation by your physician Discharge Instructions: - Discharge Summary Sheet snw - Urinary Tract Infection, Adult snw - Rehydration, Elderly snw Forms: - Medication Reconciliation Form snw - Thank You Letter snw - Antibiotic Education snw - Prescription Opioid Use snw Prescriptions: - cefpodoxime 200 mg Oral Tablet - take 1 tablet by ORAL route every 12 hours with food; 20 tablet; Refills: 0, snw Product Selection Permitted Signatures: Dispatcher [employer] EDMS Kylee Duarte, ASSISTANT CUSTOMER SERVICE MANAGER-C ASSISTANT CUSTOMER SERVICE MANAGER-Csnw Briana Cosby, RN RN ha1 Elham Yang RN RN mb9 Adam Rodriguez MD MD rt Corrections: (The following items were deleted from the chart) 04/27 22:52 19:25 LACTATE+C.LAB.BRZ ordered. EDPR EDMS
== END 2022-04-27 22:59 | disposition home or self-care (01) ==
LOC: ER 17:38
DX: N39.0 Urinary tract infection, site not specified (principal); R05.9 Cough, unspecified; I10 Essential (primary) hypertension; Z20.822 Contact with and (suspected) exposure to COVID-19; Z88.0 Allergy status to penicillin; Z88.1 Allergy status to other antibiotic agents; Z88.2 Allergy status to sulfonamides; Z88.6 Allergy status to analgesic agent; Z91.041 Radiographic dye allergy status
CPT/HCPCS: 87040 ×2; 87088; 85025; 87086; 36415; 87205 ×4; 87077 ×3; 87186 ×3; 80053; 76377; 74176; 96374; 99284; J7040; J7030; 81003; 81015; J0696

== ENCOUNTER 2023-02-04 16:29 | Inpatient (IN) | payer OTHER ==
--- OUTSIDE RECORDS SUMMARY | 2023-02-04 16:32 | XMS REPORT | Continuity of Care Document ---
Author Name Unknown Address [address] [facility] [address] [place] [address] [facility] thconnect Address [address] [facility] [address] [place] [address] Care Team Providers Care Investor Relations Associate Name Role Phone Jin Schwarz Primary Care Physician [phone] Breanna Duran Attending Clinician Unavailable CARLOS A OGLESBY Attending Clinician Carlos A Sanchez MD Attending Clinician Only, Adc Test Attending Clinician Unavailable Doctor Unassigned, [place] Attending Clinician U Bill Doss Admitting Clinician Unavailable CARLOS A OGLESBY Admitting Clinician Carlos A Sanchez MD Admitting Clinician [phone] Payers Payer Name Policy Type Policy Number Effective Date Expirati on Date Source MEDICARE PART A \T\ B [id number] 2000 00:00:00 [facility] [id number] 2016 00:00:00 Problems Condition Name Condition Details Condition Category Status Onset Date Resolution Date Last Treatment Date Treating Clinician Comments Source [id number] 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 [facility] [id number] Detrusor instabilit y Problem Active [facility] Mixed incontinen ce Urinary incontinen ce, mixed Problem Active [facility] [id number] Suprapubic pain Problem [facility] [id number] Recurrent UTI Problem Active [facility] [id number] Urinary retention Problem Active [facility] [id number] 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 Problem Active [facility] [id number] Carpal tunnel syndrome of right wrist Problem Active [facility] [id number] History of nephrolith iasis Problem Active [facility] [id number] Gross hematuria Problem Active [facility] [id number] Lesion of bladder Problem Active [facility] [id number] Cystitis Problem Active [facility] [id number] Bladder diverticul um Problem Active [facility] Allergies, Adverse Reactions, Alerts Allergy Name Allergy Type Status Severity Reaction(s) Onset Date Inactive Date Treating Clinician Comments Source Penicill ins Propensi ty to adverse reaction s to drug Active Other - See comments 09-10 00:00: 00 Causes severe chest pain [facility] Sulfa (Sulfona mide Antibiot ics) Propensi ty to adverse reaction s to drug Active Other - See comments 09-10 00:00: 00 Causes skin blisters [facility] Artifici al Tears(Hy promello se) Propensi ty to adverse reaction s to drug Active Other - See comments 09-10 00:00: 00 Causes bloodshot eyes [facility] Iodine Propensi ty to adverse reaction s to drug Active Other - See comments 09-10 00:00: 00 IV Iodine - caused kidney problems [facility] Levoflox acin Propensi ty to adverse reaction s to drug Active Other - See comments 09-10 00:00: 00 Causes leg pain [facility] ARTIFICI AL TEARS(HY PROMELLO SE) DRUG Active Med [facility] 09-10 00:00: 00 [facility] IODINE DRUG INGREDI Active Med [facility] 09-10 00:00: 00 [facility] LEVOFLOX ACIN DRUG INGREDI Active Med [facility] 09-10 00:00: 00 [facility] PENICILL INS Drug Class Active Med [facility] 09-10 00:00: 00 [facility] SULFA (SULFONA MIDE ANTIBIOT ICS) Drug Class Active [facility] 09-10 00:00: 00 [facility] [address] Drug allergy Active Unknown [facility] [address] Drug allergy Active Unknown [facility] Iodine Iodine Active Unknown [facility] 45527 Drug allergy Active Unknown [facility] 26489 Drug allergy Active Unknown [facility] Social History Social Habit Start Date Stop Date Quantity Comments Source History of Tobacco Use [facility] Sex Assigned At [facility] Exposure to SARS-CoV-2 (event) Not sure [facility] Alcohol intake 2020-11-21 00:00:00 2020-11-21 00:00:00 Current non-drinker of alcohol (finding) [facility] Tobacco use and exposure 2016-09-10 00:00:00 2016-09-10 00:00:00 Never used [facility] Smoking Status Start Date Stop Date Source Never Smoker [facility] Medications Ordered Medication Name Filled Medication Name Start Date Stop Date Current Medication? Ordering Clinician Indication Dosage Frequency Signature (SIG) Comments Components Source Alfuzosin HCl ER 10 MG Alfuzosin HCl ER 10 MG 07-26 00:00: 00 01-21 00:00 :00 No 1{table t_immed iately_ after_t he_same _meal} QD Alfuzosin HCl ER 10 MG Alfuzosin HCl ER 10 MG Alfuzosin HCl ER 10 MG 2021-07-26 00:00: 00 01-21 00:00 :00 No 1{table t_immed iately_ after_t he_same _meal} QD Alfuzosin HCl ER 10 MG Alfuzosin HCl ER 10 MG Alfuzosin HCl ER 10 MG - 00:00: 00 01-21 00:00 :00 No 1{table t_immed iately_ after_t he_same _meal} QD Alfuzosin HCl ER 10 MG Macrobid 100 MG Macrobid 100 MG 4-14 00:00: 00 06-05 00:00 :00 No BID Macrobid 100 MG Nitrofurant oin Monohyd Macro 100 MG Nitrofurant oin Monohyd Macro 100 MG -21 00:00: 00 05-13 00:00 :00 No 1{capsu le_with _food} BID Nitrofuran toin Monohyd Macro 100 MG water for irrigation irrigation solution 2020-02 0 14:53: 00 Yes PRN, Starting on Fri11/22/20 at 0953, Until Discontinu ed, Routine, Intra-op [facility] water for irrigation irrigation solution 2020-02 0 14:53: 00 11-22 19:03 :43 No PRN, Starting on Fri11/22/20 at 0953, Until Fri11/22/20 at 1403, Routine, Intra-op [facility] sodium chloride (NS) injection 2020-02 14:52: 00 Yes PRN, Starting on Fri11/22/20 at 0952, Until Discontinu ed, Routine, Intra-op [facility] neomycin-po lymyxin-dex amethasone (MAXITROL) 3.5 mg/g-10,000 unit/g-0.1 % ophthalmic ointment 2020-02 0 14:52: 00 Yes PRN, Starting on Fri11/22/20 at 0952, Until Discontinu ed, Routine, Intra-op [facility] Hyaluronida se, Human Recomb. (HYLENEX) injection 2020-02 0 14:52: 00 Yes PRN, Starting on Fri11/22/20 at 0952, Until Discontinu ed, Routine, Intra-op [facility] sodium chloride (NS) injection 2020-02 006 14:52: 00 11-22 19:03 :43 No PRN, Starting on Fri11/22/20 at 0952, Until Fri11/22/20 at 1403, Routine, Intra-op [facility] neomycin-po lymyxin-dex amethasone (MAXITROL) 3.5 mg/g-10,000 unit/g-0.1 % ophthalmic ointment 2020-02 0-06 14:52: 00 11-22 19:03 :43 No PRN, Starting on Fri11/22/20 at 0952, Until Fri11/22/20 at 1403, Routine, Intra-op [facility] Hyaluronida se, Human Recomb. (HYLENEX) injection 2020-02 0 14:52: 00 11-22 19:03 :43 No PRN, Starting on Fri11/22/20 at 0952, Until Fri11/22/20 at 1403, Routine, Intra-op [facility] eye block syringe 11 mL 2020-02 0 14:51: 00 Yes PRN, Starting on Fri11/22/20 at 0951, Until Discontinu ed, Intra-op [facility] eye block syringe 11 mL 2020-02 0 14:51: 00 11-22 19:03 :43 No PRN, Starting on Fri11/22/20 at 0951, Until Fri11/22/20 at 1403, Intra-op [facility] EPINEPHrine 1:1,000 (1 mg/mL) (ADRENALIN) injection 2020-02 0 14:50: 00 Yes PRN, Starting on Fri11/22/20 at 0950, Until Discontinu ed, Routine, Intra-op [facility] DUOVISC (DUOVISC VISCO ELASTIC) 3 %-4 %(0.5 mL) 1 % (0.55 mL) intraocular injection 2020-02 0 14:50: 00 Yes PRN, Starting on Fri11/22/20 at 0950, Until Discontinu ed, Routine, Intra-op [facility] dexamethaso ne (DECADRON PHOSPHATE) injection 2020-02 006 14:50: 00 Yes PRN, Starting on Fri11/22/20 at 0950, Until Discontinu ed, Routine, Intra-op [facility] EPINEPHrine 1:1,000 (1 mg/mL) (ADRENALIN) injection 2020-02 0-06 14:50: 00 11-22 19:03 :43 No PRN, Starting on Fri11/22/20 at 0950, Until Fri11/22/20 at 1403, Routine, Intra-op [facility] DUOVISC (DUOVISC VISCO ELASTIC) 3 %-4 %(0.5 mL) 1 % (0.55 mL) intraocular injection 2020-02 0-06 14:50: 00 11-22 19:03 :43 No PRN, Starting on Fri11/22/20 at 0950, Until Fri11/22/20 at 1403, Routine, Intra-op [facility] dexamethaso ne (DECADRON PHOSPHATE) injection 2020-02 0-06 14:50: 00 11-22 19:03 :43 No PRN, Starting on Fri11/22/20 at 0950, Until Fri11/22/20 at 1403, Routine, Intra-op [facility] ceFAZolin (ANCEF) injection 2020-02 0-06 14:49: 00 Yes PRN, Starting on Fri11/22/20 at 0949, Until Discontinu ed, YADIRA, Intra-op [facility] carbachoL (MIOSTAT) 0.01 % intraocular injection 2020-02 0-06 14:49: 00 Yes PRN, Starting on Fri11/22/20 at 0949, Until Discontinu ed, Routine, Intra-op [facility] ceFAZolin (ANCEF) injection 2020-02 0-06 14:49: 00 11-22 19:03 :43 No PRN, Starting on Fri11/22/20 at 0949, Until Fri11/22/20 at 1403, YADIRA, Intra-op [facility] carbachoL (MIOSTAT) 0.01 % intraocular injection 2020-02 0-06 14:49: 00 11-22 19:03 :43 No PRN, Starting on Fri11/22/20 at 0949, Until Fri11/22/20 at 1403, Routine, Intra-op [facility] balanced salt irrig soln comb1 (BSS PLUS) ophthalmic solution 500 mL bag 2020-02 006 14:48: 00 Yes PRN, Starting on Fri11/22/20 at 0948, Until Discontinu ed, Routine, Intra-op [facility] balanced salt irrig soln comb1 (BSS PLUS) ophthalmic solution 500 mL bag 2020-02 0 14:48: 00 11-22 19:03 :43 No PRN, Starting on Fri11/22/20 at 0948, Until Fri11/22/20 at 1403, Routine, Intra-op [facility] mydriatic #5 ophthalmic solution 0.5 mL syringe 2020-02 0 14:30: 00 11-22 14:47 :00 No .5mL 0.5 mL, Left Eye, ONCE, 1 dose, On Fri11/22/20 at 0930, Routine, DSU Pre-op [facility] lactated ringers IV infusion 1,000 mL 2020-02 0 14:30: 00 11-22 14:45 :00 No 1000mL at 42 mL/hr, 1,000 mL, IV Infusion, ONCE, 1 dose, On Fri11/22/20 at 0930, Routine, DSU Pre-op [facility] mydriatic #5 ophthalmic solution 0.5 mL syringe 2020-02 0-06 14:30: 00 11-22 14:47 :00 No .5mL 0.5 mL, Left Eye, ONCE, 1 dose, On Fri11/22/20 at 0930, Routine, DSU Pre-op [facility] lactated ringers IV infusion 1,000 mL 2020-02 006 14:30: 00 11-22 14:45 :00 No 1000mL at 42 mL/hr, 1,000 mL, IV Infusion, ONCE, 1 dose, On Fri11/22/20 at 0930, Routine, DSU Pre-op [facility] hydroCHLORO thiazide 12.5 mg capsule 2020-02 0 11:58: 43 Yes 12.5mg Take 12.5 mg by mouth daily. [facility] Calcium Carbonate-M ag Hydroxid (ROLAIDS) 550-110 mg Chew 2020-02 0 11:58: 43 Yes 1{each} Take 1-2 Each by mouth as needed. [facility] hydroCHLORO thiazide 12.5 mg capsule 2020-02 0 11:58: 43 Yes 12.5mg Take 12.5 mg by mouth daily. [facility] Calcium Carbonate-M ag Hydroxid (ROLAIDS) 550-110 mg Chew 2020-02 0 11:58: 43 Yes 1{each} Take 1-2 Each by mouth as needed. [facility] Lidocaine Lidocaine 2019-02 00:00: 00 No 10mg [facility] Depo-Medrol (Methylpred nisolone) 40mg Depo-Medrol (Methylpred nisolone) 40mg 2019-02 00:00: 00 No 40mg [facility] Lidocaine Lidocaine 2019-02 00:00: 00 No 10mg [facility] Depo-Medrol (Methylpred nisolone) 40mg Depo-Medrol (Methylpred nisolone) 40mg 2019-02 00:00: 00 No 40mg [facility] Lidocaine Lidocaine 2019-02 00:00: 00 No 10mg [facility] Depo-Medrol (Methylpred nisolone) 40mg Depo-Medrol (Methylpred nisolone) 40mg 2019-02 00:00: 00 No 40mg [facility] Lidocaine Lidocaine 2019-02 00:00: 00 No 10mg [facility] Depo-Medrol (Methylpred nisolone) 40mg Depo-Medrol (Methylpred nisolone) 40mg 2019-02 00:00: 00 No 40mg [facility] Lidocaine Lidocaine 2019-02 00:00: 00 No 10mg [facility] Depo-Medrol (Methylpred nisolone) 40mg Depo-Medrol (Methylpred nisolone) 40mg 2019-02 00:00: 00 No 40mg [facility] Lidocaine Lidocaine 2019-02 00:00: 00 No 10mg [facility] Depo-Medrol (Methylpred nisolone) 40mg Depo-Medrol (Methylpred nisolone) 40mg 2019-02 00:00: 00 No 40mg [facility] Lidocaine Lidocaine 2019-02 00:00: 00 No 10mg [facility] Depo-Medrol (Methylpred nisolone) 40mg Depo-Medrol (Methylpred nisolone) 40mg 2019-02 00:00: 00 No 40mg [facility] Lidocaine Lidocaine 2019-02 00:00: 00 No 10mg [facility] Depo-Medrol (Methylpred nisolone) 40mg Depo-Medrol (Methylpred nisolone) 40mg 2019-02 00:00: 00 No 40mg [facility] hydroCHLORO thiazide 12.5 mg capsule 09-11 13:04: 15 Yes 12.5mg Take 12.5 mg by mouth daily. [facility] Calcium Carbonate-M ag Hydroxid (ROLAIDS) 550-110 mg Chew 09-11 13:04: 15 Yes 1{each} Take 1-2 Each by mouth as needed. [facility] hydroCHLORO thiazide 12.5 mg capsule 09-11 13:04: 15 Yes 12.5mg Take 12.5 mg by mouth daily. [facility] Calcium Carbonate-M ag Hydroxid (ROLAIDS) 550-110 mg Chew 09-11 13:04: 15 Yes 1{each} Take 1-2 Each by mouth as needed. [facility] Nitrofurant oin Monohyd Macro Nitrofurant oin Monohyd Macro No Nitrofuran toin Monohyd Macro Omeprazole Omeprazole No Omeprazole Diclofenac Sodium 1 % Diclofenac Sodium 1 % No Diclofenac Sodium 1 % Omeprazole Omeprazole No Omeprazole hydroCHLORO thiazide hydroCHLORO thiazide No hydroCHLOR Othiazide Tamsulosin HCl Tamsulosin HCl No Tamsulosin HCl Alfuzosin HCl ER Alfuzosin HCl ER No Alfuzosin HCl ER D-Mannose D-Mannose No D-Mannose Diclofenac Sodium 1 % Diclofenac Sodium 1 % No Diclofenac Sodium 1 % Nitrofurant oin Monohyd Macro Nitrofurant oin Monohyd Macro No Nitrofuran toin Monohyd Macro Amoxicillin -Pot Clavulanate Amoxicillin -Pot Clavulanate No Amoxicilli n-Pot Clavulanat e Nitrofurant oin Macrocrysta l Nitrofurant oin Macrocrysta l No Nitrofuran toin Macrocryst al Ciprofloxac in HCl Ciprofloxac in HCl No Ciprofloxa norris HCl Claritin Claritin No Claritin D-Mannose D-Mannose No D-Mannose Diclofenac Sodium 1 % Diclofenac Sodium 1 % No Diclofenac Sodium 1 % Claritin Claritin No Claritin hydroCHLORO thiazide hydroCHLORO thiazide No hydroCHLOR Othiazide D-Mannose D-Mannose No D-Mannose Diclofenac Sodium 1 % Diclofenac Sodium 1 % No Diclofenac Sodium 1 % Claritin Claritin No Claritin hydroCHLORO thiazide hydroCHLORO thiazide No hydroCHLOR Othiazide Nitrofurant oin Macrocrysta l Nitrofurant oin Macrocrysta l No Nitrofuran toin Macrocryst al hydroCHLORO thiazide hydroCHLORO thiazide No hydroCHLOR Othiazide D-Mannose D-Mannose No D-Mannose Claritin Claritin No Claritin Amoxicillin -Pot Clavulanate Amoxicillin -Pot Clavulanate No Amoxicilli n-Pot Clavulanat e Diclofenac Sodium 1 % Diclofenac Sodium 1 % No Diclofenac Sodium 1 % Alfuzosin HCl ER Alfuzosin HCl ER No Alfuzosin HCl ER Ciprofloxac in HCl Ciprofloxac in HCl No Ciprofloxa norris HCl Omeprazole Omeprazole No Omeprazole Nitrofurant oin Monohyd Macro Nitrofurant oin Monohyd Macro No Nitrofuran toin Monohyd Macro Tamsulosin HCl Tamsulosin HCl No Tamsulosin HCl Omeprazole Omeprazole No Omeprazole Alfuzosin HCl ER Alfuzosin HCl ER No Alfuzosin HCl ER Claritin Claritin No Claritin hydroCHLORO thiazide hydroCHLORO thiazide No hydroCHLOR Othiazide Diclofenac Sodium 1 % Diclofenac Sodium 1 % No Diclofenac Sodium 1 % Nitrofurant oin Monohyd Macro Nitrofurant oin Monohyd Macro No Nitrofuran toin Monohyd Macro Tamsulosin HCl Tamsulosin HCl No Tamsulosin HCl Nitrofurant oin Macrocrysta l Nitrofurant oin Macrocrysta l No Nitrofuran toin Macrocryst al D-Mannose D-Mannose No D-Mannose Ciprofloxac in HCl Ciprofloxac in HCl No Ciprofloxa norris HCl Amoxicillin -Pot Clavulanate Amoxicillin -Pot Clavulanate No Amoxicilli n-Pot Clavulanat e Omeprazole Omeprazole No Omeprazole Tamsulosin HCl Tamsulosin HCl No Tamsulosin HCl Ciprofloxac in HCl Ciprofloxac in HCl No Ciprofloxa norris HCl Alfuzosin HCl ER Alfuzosin HCl ER No Alfuzosin HCl ER D-Mannose D-Mannose No D-Mannose Claritin Claritin No Claritin Amoxicillin -Pot Clavulanate Amoxicillin -Pot Clavulanate No Amoxicilli n-Pot Clavulanat e Nitrofurant oin Macrocrysta l Nitrofurant oin Macrocrysta l No Nitrofuran toin Macrocryst al Nitrofurant oin Monohyd Macro Nitrofurant oin Monohyd Macro No Nitrofuran toin Monohyd Macro hydroCHLORO thiazide hydroCHLORO thiazide No hydroCHLOR Othiazide Diclofenac Sodium 1 % Diclofenac Sodium 1 % No Diclofenac Sodium 1 % Nitrofurant oin Macrocrysta l Nitrofurant oin Macrocrysta l No Nitrofuran toin Macrocryst al Tamsulosin HCl Tamsulosin HCl No Tamsulosin HCl Ciprofloxac in HCl Ciprofloxac in HCl No Ciprofloxa norris HCl Alfuzosin HCl ER Alfuzosin HCl ER No Alfuzosin HCl ER D-Mannose D-Mannose No D-Mannose Claritin Claritin No Claritin Amoxicillin -Pot Clavulanate Amoxicillin -Pot Clavulanate No Amoxicilli n-Pot Clavulanat e hydroCHLORO thiazide hydroCHLORO thiazide No hydroCHLOR Othiazide Nitrofurant oin Monohyd Macro Nitrofurant oin Monohyd Macro No Nitrofuran toin Monohyd Macro Omeprazole Omeprazole No Omeprazole Diclofenac Sodium 1 % Diclofenac Sodium 1 % No Diclofenac Sodium 1 % Nitrofurant oin Macrocrysta l Nitrofurant oin Macrocrysta l No Nitrofuran toin Macrocryst al Tamsulosin HCl Tamsulosin HCl No Tamsulosin HCl Ciprofloxac in HCl Ciprofloxac in HCl No Ciprofloxa norris HCl Alfuzosin HCl ER Alfuzosin HCl ER No Alfuzosin HCl ER D-Mannose D-Mannose No D-Mannose Claritin Claritin No Claritin Amoxicillin -Pot Clavulanate Amoxicillin -Pot Clavulanate No Amoxicilli n-Pot Clavulanat e hydroCHLORO thiazide hydroCHLORO thiazide No hydroCHLOR Othiazide Vital Signs Vital Name Observation Time Observation Value Comments S uday height 2022-08-29 11:00:00 62.5 [in_i] Comm on [facility] weight 2022-08-29 11:00:00 117 [lb_av] Comm on [facility] temperature 2022-08-29 11:00:00 97.6 [degF] Com [facility] bmi 2022-08-29 11:00:00 21.06 kg/m2 Comm on [facility] oximetry 2022-08-29 11:00:00 99 % Commo n [facility] respiratory rate 2022-08-29 11:00:00 18 /min [facility] blood pressure systolic 2022-08-29 11:00:00 132 mm[Hg] [facility] blood pressure diastolic 2022-08-29 11:00:00 68 mm[Hg] [facility] height 2021-08-30 10:15:00 62.5 [in_i] Comm on [facility] weight 2021-08-30 10:15:00 120.0 [lb_av] Co mmon [facility] temperature 2021-08-30 10:15:00 97.4 [degF] Com [facility] bmi 2021-08-30 10:15:00 21.6 kg/m2 Commo n [facility] oximetry 2021-08-30 10:15:00 98 % Commo n [facility] respiratory rate 2021-08-30 10:15:00 16 /min [facility] blood pressure systolic 2021-08-30 10:15:00 188 mm[Hg] Common [facility] blood pressure diastolic 2021-08-30 10:15:00 78 mm[Hg] [facility] height 2021-07-26 11:15:00 62.5 [in_i] Comm on [facility] weight 2021-07-26 11:15:00 121.6 [lb_av] Co mmon [facility] temperature 2021-07-26 11:15:00 97.9 [degF] Com mon [facility] bmi 2021-07-26 11:15:00 21.88 kg/m2 Comm on [facility] oximetry 2021-07-26 11:15:00 96 % Commo n [facility] respiratory rate 2021-07-26 11:15:00 18 /min [facility] blood pressure systolic 2021-07-26 11:15:00 162 mm[Hg] [facility] blood pressure diastolic 2021-07-26 11:15:00 68 mm[Hg] [facility] respiratory rate 2021-05-31 09:00:00 16 /min [facility] blood pressure systolic 2021-05-31 09:00:00 233 mm[Hg] [facility] blood pressure diastolic 2021-05-31 09:00:00 102 mm[Hg] [facility] height 2021-05-31 09:00:00 62.5 [in_i] Comm on [facility] weight 2021-05-31 09:00:00 117 [lb_av] Comm on [facility] temperature 2021-05-31 09:00:00 97 [degF] Comm on [facility] bmi 2021-05-31 09:00:00 21.06 kg/m2 Comm on [facility] oximetry 2021-05-31 09:00:00 96 % Commo n [facility] height 2021-05-03 11:00:00 62.5 [in_i] Comm on [facility] weight 2021-05-03 11:00:00 117.2 [lb_av] Co mmon [facility] temperature 2021-05-03 11:00:00 98.6 [degF] Com mon [facility] bmi 2021-05-03 11:00:00 21.09 kg/m2 Comm on [facility] oximetry 2021-05-03 11:00:00 99 % Commo n [facility] respiratory rate 2021-05-03 11:00:00 16 /min Common [facility] blood pressure systolic 2021-05-03 11:00:00 166 mm[Hg] [facility] blood pressure diastolic 2021-05-03 11:00:00 76 mm[Hg] [facility] Systolic blood pressure 2020-11-22 16:30:00 194 mm[Hg] [facility] Diastolic blood pressure 2020-11-22 16:30:00 72 mm[Hg] [facility] Heart rate 2020-11-22 16:30:00 73 /min [facility] Oxygen saturation in Arterial blood by Pulse oximetry 2020-11-22 16:30:00 100 /min [facility] Body temperature 2020-11-22 16:20:00 36.39 [facility] Respiratory rate 2020-11-22 16:20:00 16 /min [facility] Body height 2020-11-21 17:07:00 162.6 cm [facility] Body weight 2020-11-21 17:07:00 51.256 kg [facility] BMI 2020-11-21 17:07:00 19.40 kg/m2 [facility] Systolic blood pressure 2020-11-22 16:30:00 194 mm[Hg] [facility] Diastolic blood pressure 2020-11-22 16:30:00 72 mm[Hg] [facility] Heart rate 2020-11-22 16:30:00 73 /min [facility] Oxygen saturation in Arterial blood by Pulse oximetry 2020-11-22 16:30:00 100 /min [facility] Body temperature 2020-11-22 16:20:00 36.39 [facility] Respiratory rate 2020-11-22 16:20:00 16 /min [facility] Body height 2020-11-21 17:07:00 162.6 cm [facility] Body weight 2020-11-21 17:07:00 51.256 kg [facility] BMI 2020-11-21 17:07:00 19.40 kg/m2 [facility] Procedures Procedure Date / Time Performed Performing Clinician Source PVR 2022-08-29 00:00:00 [facility] PHACOEMULSIFICATION OF CATARACT WITH INTRAOCULAR LENS IMPLANT 2020-11-22 15:47:00 Carlos A Oglesby [facility] ASSIGNMENT OF BENEFITS 2020-11-20 19:22:12 Doctor Unassigned, [place] [facility] Encounters Start Date/Time End Date/Time Encounter Type Admission Type Attending Clinicians Care Facility Care Department Encounter ID Source 2022-08-29 10:47:00 [facility] [id number] [facility] 2021-09-13 14:11:01 [facility] [id number] [facility] 2021-08-14 10:59:01 Outpatient [facility] [id number] [facility] 2021-05-23 16:00:02 Outpatient [facility] [id number] [facility] 2021-03-14 14:35:35 Outpatient Breanna Duran [facility] [id number] [facility] 2021-03-14 12:09:36 Outpatient Breanna Duran [facility] [id number] [facility] 2021-03-14 12:02:34 Outpatient Breanna Duran [facility] [id number] [facility] 2020-12-19 03:44:32 Outpatient CARLOS A [facility] OPH [id number] [facility] 2022-09-02 00:00:00 2022-09-02 00:00:00 (TEL) [facility] [id number] [facility] 2022-08-29 00:00:00 2022-08-29 00:00:00 OFFICE VISIT ESTAB PT LEVEL 3 [facility] [id number] [facility] 2021-08-30 00:00:00 2021-08-30 00:00:00 (PROC) Procedure [facility] [id number] [facility] 2021-07-26 00:00:00 2021-07-26 00:00:00 OFFICE VISIT EST PT LEVEL 3 [facility] STL[facility] [id number] [facility] 2021-06-20 00:00:00 2021-06-20 00:00:00 (PROC) Procedure [facility]LMLC STL[facility]C [id number] [facility] 2021-05-31 00:00:00 2021-05-31 00:00:00 OFFICE VISIT ESTAB PT LEVEL 2 [facility]LMLC STL[facility]C [id number] [facility] 2021-05-07 00:00:00 2021-05-07 00:00:00 (TEL) [facility] [id number] [facility] 2021-05-03 00:00:00 2021-05-03 00:00:00 OFFICE VISIT NEW PT LEVEL 2 STLMLC STLMLC [id number] [facility] 2020-11-22 09:03:00 2020-11-22 11:57:00 Hospital Encounter Carlos A Oglesby [facility] [id number] [facility] 2020-11-22 10:50:00 2020-11-22 11:33:00 Surgery Carlos A Oglesby [facility] [id number] [facility] 2020-11-20 14:45:00 2020-11-20 14:45:00 Outpatient R MENDELCARLOS A [facility] [id number] [facility] 2020-11-20 14:20:49 2020-11-20 14:35:49 Laboratory Only Only, Adc Test Carlos A Oglesby [facility] [id number] [facility] 2020-11-20 00:00:00 2020-11-20 00:00:00 Orders Only Doctor Unassigned, [place] [facility] [id number] [facility] 2020-02-07 00:00:00 2020-02-07 00:00:00 Outpatient STLMLC STLMLC [id number] [facility] 2020-02-07 00:00:00 2020-02-07 00:00:00 Outpatient [facility]C [facility] [id number] [facility] 2019-12-23 00:00:00 2019-12-23 00:00:00 Outpatient STLMLC STL[facility]C [id number] [facility]
[2023-02-04 17:30] LABS: Absolute Lymphocytes (CBC) 1.9 K/uL (0.7-4.9); Hematocrit 27.1 % (36.0-45.0); Lymphocytes % 24.2 % (15.3-44.8); MCV 84.3 fL (80-100); MPV 7.4 fL (7.6-11.3); Platelets 273 thou/uL (152-406); RBC Red Blood Cell Count 3.21 M/uL (3.86-4.86)
[2023-02-04 17:37] LABS: Protime INR 1.09
--- NOTE | 2023-02-04 17:43 | RAD REPORT ---
EXAM DESCRIPTION: CT - Abdomen Pelvis Wo Contrast - 02/04/2023 5:34 pm CLINICAL HISTORY: Abdominal pain. rectal bleeding COMPARISON: [facility] Protocol dated 04/27/2022 TECHNIQUE: CT imaging of the abdomen and pelvis was performed without contrast. Solid organ, bowel a nd vascular assessment is limited due to lack of IV and oral contrast. All CT scans are performed using dose optimization technique as appropriate and may include automated exposure control or mA/KV adjustment according to patient size. FINDINGS: The lower lung shaw are clear.Small hiatal hernia. The liver, spleen, pancreas, adrenal glands and kidneys are within normal limits for a limited non-co ntrast examination. No bowel obstruction, free air, free fluid or abscess. Significant retention of stool throughout the colon. There is advanced diverticulosis seen involving sigmoid colon with wall thickening apparent. T he appendix is not identified as a discrete structure, however, no secondary findings of appendicitis are identified. Upper lumbar degenerative changes. IMPRESSION: There is advanced diverticulosis of the sigmoid colon wall thickening present. Followup colonoscopy would be recommended for direct visualization of this region. Significant fecal retention is seen. A limited non-contrast examination was performed as detailed.
[2023-02-04 17:55] LABS: Albumin 2.9 g/dL (3.4-5.0); Bilirubin Total 0.3 mg/dL (0.2-1.0); Potassium 3.7 mEq/L (3.5-5.1); Protein, Total 7.9 g/dL (6.4-8.2)
--- NOTE | 2023-02-04 18:29 | ER ---
Nurse's Notes [facility] Name: Camilla Hutchison Age: 87 yrs Sex: Female : 1935 Arrival Date: 02/04/2023 Time: 16:29 Bed 6 Private MD: Jin Schwarz Diagnosis: Dehydration;Diverticulosis;Constipation Presentation: 02/04 16:55 Chief complaint: Patient states: Bloody stools onset Friday. Pt states that this cm10 morning she was having bright red blood in her stools. Pt states that she has a history of blood in her stools. Pt reports lower abdominal cramping. Coronavirus screen: Vaccine status: Patient reports being unvaccinated. Client denies travel out of the [place] in the last 14 days. Ebola Screen: Patient denies travel to an Ebola-affected area in the 21 days before illness onset. No symptoms or risks identified at this time. Initial Sepsis Screen: Does the patient meet any 2 criteria? No. Patient's initial sepsis screen is negative. Does the patient have a suspected source of infection? No. Patient's initial sepsis screen is negative. Risk Assessment: Do you want to hurt yourself or someone else? Patient reports no desire to harm self or others. Onset of symptoms was February 04, 2023. 16:55 Method Of Arrival: Wheelchair cm10 16:55 Acuity: EUGENIO 3 cm10 Triage Assessment: 17:21 General: Appears in no apparent distress. comfortable, Behavior is calm, cooperative. cm10 Pain: Complains of pain in right lower quadrant and left lower quadrant Pain does not radiate. Quality of pain is described as aching, crampy. Neuro: No deficits noted. Level of Consciousness is awake, alert, obeys commands, Oriented to person, place, time, situation. Cardiovascular: No deficits noted. Patient's skin is warm and dry. Respiratory: No deficits noted. Airway is patent Respiratory effort is even, unlabored, Respiratory pattern is regular, symmetrical. GI: No deficits noted. Abdomen is flat, Reports lower abdominal pain, bloody stool. : No deficits noted. No signs and/or symptoms were reported regarding the genitourinary system. Derm: No deficits noted. No signs and/or symptoms reported regarding the dermatologic system. Skin is intact, Skin is pink, warm \T\ dry. Musculoskeletal: No deficits noted. No signs and/or symptoms reported regarding the musculoskeletal system. Range of motion: intact in all extremities. Historical: - Allergies: 16:56 Ibuprofen; cm10 16:56 Iodinated Contrast Media - IV Dye; cm10 16:56 Levaquin; cm10 16:56 PENICILLINS; cm10 16:56 Sulfa (Sulfonamide Antibiotics); cm10 - PMHx: 16:56 Hypertension; cm10 - PSHx: 16:56 Total abdominal hysterectomy; cm10 - Immunization history:: Adult Immunizations unknown. - Social history:: Smoking status: Patient denies any tobacco usage or history of. - Family history:: not pertinent. Screenin:23 [facility] ED Fall Risk Assessment (Adult) History of falling in the last 3 months, cm10 including since admission No falls in past 3 months (0 pts) Confusion or Disorientation No (0 pts) Intoxicated or Sedated No (0 pts) Impaired Gait Yes (1 pt) Mobility Assist Device Used Yes (1 pt) Altered Elimination No (0 pt) Score/Fall Risk Level 0 - 2 = Low Risk Oriented to surroundings, Maintained a safe environment, Hourly rounding (assess needs \T\ fall precautionary measures) done, Used ambulatory aids as needed (educated on \T\ assisted with). Abuse screen: Denies threats or abuse. Denies injuries from another. Nutritional screening: No deficits noted. Tuberculosis screening: No symptoms or risk factors identified. Assessment: 19:45 Reassessment: Pt held in the ED due to blood pressure being elevated. cm10 Vital Signs: 16:55 BP 216 / 84; Pulse 82; Resp 20; Temp 98; Pulse Ox 100% ; Weight 52.62 kg; Height 5 ft. cm10 4 in. ; 18:49 BP 188 / 87; Pulse 72; Resp 16; Pulse Ox 100% on R/A; cm10 19:00 BP 181 / 84; Pulse 77; Resp 16; Pulse Ox 98% on R/A; tl4 20:16 BP 174 / 60; Pulse 89; Resp 16; Pulse Ox 100% on R/A; cm10 20:30 BP 166 / 64; Pulse 100; Resp 15; Pulse Ox 100% ; tl4 16:55 Body Mass Index 19.91 (52.62 kg, 162.56 cm) cm10 ED Course: 16:30 Patient arrived in ED. reg4 16:31 Jin Schwarz MD is Private Physician. rg4 16:33 Adam Rodriguez MD is Attending Physician. rt 16:56 Triage completed. cm10 16:57 Arm band placed on Patient placed in an exam room, on a stretcher. cm10 17:21 Ptt, Activated Sent. cm10 17:21 PT-INR Sent. cm10 17:21 Type And Screen Sent. cm10 17:21 CMP Sent. cm10 17:21 CBC with Diff Sent. cm10 17:21 Initial lab(s) drawn, by me, sent to lab. T\T\S collected, blood band applied to patient. cm10 Inserted saline lock: 18 gauge in right wrist, using aseptic technique. Blood collected. 17:24 Patient has correct armband on for positive identification. Bed in low position. Call cm10 light in reach. Side rails up X2. Provided Education on: ED process and procedures. . Client placed on continuous cardiac and pulse oximetry monitoring. NIBP monitoring applied. Door closed. Warm blanket given. 17:[address] via wheelchair. cm10 17:[address] Patient moved back from CT. cm10 17:34 Abdomen In Process Unspecified. EDMS 18:28 Jin Schwarz MD is Hospitalizing Provider. rt 19:33 No provider procedures requiring assistance completed. Patient admitted, IV remains in cm10 place. Administered Medications: 18:49 Drug: Cefepime IVPB 2 grams IVPB at 200 ml/hr once over 30 mins; (mix in NS 100 mL) cm10 Route: IVPB; Rate: 200 ml/hr; Infused Over: 30 mins; Site: left wrist; 19:25 Follow up: Response: No adverse reaction; IV Status: Completed infusion; IV Intake: cm10 100ml 18:49 Drug: NS 0.9% IV 500 ml IV at bolus once Route: IV; Rate: bolus; Site: right wrist; cm10 19:25 Follow up: Response: No adverse reaction; IV Status: Completed infusion; IV Intake: cm10 500ml 19:25 Drug: vancoMYCIN IVPB 1 grams IVPB once over 2 hrs Route: IVPB; Infused Over: 2 hrs; cm10 Site: right wrist; 20:55 Follow up: Response: No adverse reaction; IV Status: Infusion continued upon admission cm10 19:25 Drug: Lactulose PO 30 grams 45 ml PO once Volume: 45 ml; Route: PO; cm10 20:01 Follow up: Response: No adverse reaction tl4 20:16 Drug: hydrALAZINE IVP 20 mg IVP once Route: IVP; Site: right wrist; cm10 20:18 Follow up: Response: No adverse reaction cm10 Medication: 17:23 VIS not applicable for this client. cm10 Intake: 19:25 IV: 500ml; Total: 500ml. cm10 19:25 IV: 100ml; Total: 600ml. cm10 Outcome: 18:29 Decision to Hospitalize by Provider. rt 19:32 Admitted to Tele accompanied by tech, via wheelchair, room 411, Report called to cm10 KATHYA Armenta 19:32 Condition: good 19:32 Instructed on the need for admit, 20:56 Patient left the ED. cm10 Signatures: Dispatcher [employer] Darline Grewal rg4 Adam Rodriguez MD MD rt Moraima Gilbert RN RN cm10 Sanket Arceo tl4 Corrections: (The following items were deleted from the chart) 20:16 19:52 hydrALAZINE IVP 10 mg IVP in right wrist cm10 cm10
--- NOTE | 2023-02-04 18:29 | EDPHYS ---
Physician Documentation [facility] Name: Camilla Hutchison Age: 87 yrs Sex: Female : 1935 Arrival Date: 02/04/2023 Time: 16:29 Bed 6 Private MD: Jin Schwarz ED Physician Adam Rodriguez HPI: 02/04 17:27 This 87 yrs old Female presents to ER via Wheelchair with complaints of Bloody Stools. rt 17:27 Patient presents to the ED with bloody stools today. Patient states it was bright red rt blood, I do seem to almost feel like coming out. Reports mild lower abdominal pain. Denies other acute complaints, symptoms are moderate in severity, no other aggravating or alleviating factors.. Historical: - Allergies: 16:56 Ibuprofen; cm10 16:56 Iodinated Contrast Media - IV Dye; cm10 16:56 Levaquin; cm10 16:56 PENICILLINS; cm10 16:56 Sulfa (Sulfonamide Antibiotics); cm10 - PMHx: 16:56 Hypertension; cm10 - PSHx: 16:56 Total abdominal hysterectomy; cm10 - Immunization history:: Adult Immunizations unknown. - Social history:: Smoking status: Patient denies any tobacco usage or history of. - Family history:: not pertinent. ROS: 17:27 Constitutional: Negative for fever, chills, and weight loss, Cardiovascular: Negative rt for chest pain, palpitations, and edema, Respiratory: Negative for shortness of breath, cough, wheezing, and pleuritic chest pain, MS/Extremity: Negative for injury and deformity, Skin: Negative for injury, rash, and discoloration, Neuro: Negative for headache, weakness, numbness, tingling, and seizure, Psych: Negative for depression, anxiety, suicide ideation, homicidal ideation, and hallucinations, 17:27 Abdomen/GI: Positive for abdominal pain, rectal bleeding, Exam: 17:27 Constitutional: This is a well developed, well nourished patient who is awake, alert, rt and in no acute distress. Head/Face: Normocephalic, atraumatic. Chest/axilla: Normal chest wall appearance and motion. Nontender with no deformity. No lesions are appreciated. Cardiovascular: Regular rate and rhythm with a normal S1 and S2. No gallops, murmurs, or rubs. Normal PMI, no JVD. No pulse deficits. Respiratory: Lungs have equal breath sounds bilaterally, clear to auscultation and percussion. No rales, rhonchi or wheezes noted. No increased work of breathing, no retractions or nasal flaring. Skin: Warm, dry with normal turgor. Normal color with no rashes, no lesions, and no evidence of cellulitis. MS/ Extremity: Pulses equal, no cyanosis. Neurovascular intact. Full, normal range of motion. Neuro: Awake and alert, GCS 15, oriented to person, place, time, and situation. Cranial nerves II-XII grossly intact. Motor strength 5/5 in all extremities. Sensory grossly intact. Cerebellar exam normal. Normal gait. Psych: Awake, alert, with orientation to person, place and time. Behavior, mood, and affect are within normal limits. 17:27 Abdomen/GI: Mild suprapubic tenderness without rebound, guarding, distention, no hemorrhoids on rectal exam, stool is mostly brown with 1 small speck of red present., Vital Signs: 16:55 BP 216 / 84; Pulse 82; Resp 20; Temp 98; Pulse Ox 100% ; Weight 52.62 kg; Height 5 ft. cm10 4 in. ; 18:49 BP 188 / 87; Pulse 72; Resp 16; Pulse Ox 100% on R/A; cm10 19:00 BP 181 / 84; Pulse 77; Resp 16; Pulse Ox 98% on R/A; tl4 20:16 BP 174 / 60; Pulse 89; Resp 16; Pulse Ox 100% on R/A; cm10 20:30 BP 166 / 64; Pulse 100; Resp 15; Pulse Ox 100% ; tl4 16:55 Body Mass Index 19.91 (52.62 kg, 162.56 cm) cm10 MDM: 16:38 Patient medically screened. rt 18:29 Differential Diagnosis Diverticulosis, diverticulitis, constipation, hemorrhoids. Data rt reviewed: vital signs, nurses notes, lab test result(s), radiologic studies. Consideration of Admission/Observation Patient was admitted/placed on observation. Management of patient was discussed with the following: Primary Care Provider: Discussed with the patient's primary care, recommends the patient be admitted for IV hydration, will see the patient in the morning.. I considered the following discharge prescriptions or medication management in the emergency department Medications were administered in the Emergency Department. See MAR. Independent interpretation of the following test(s) in the Emergency Department CT Scan: My interpretation is No bowel obstruction seen on interpretation of CT scan images. Care significantly affected by the following chronic conditions: Hypertension. Counseling: I had a detailed discussion with the patient and/or guardian regarding the historical points, exam findings, and any diagnostic results supporting the discharge/admit diagnosis, lab results, radiology results, the need for further work-up and treatment in the hospital. Response to treatment: There is no appreciated change of the patient's symptoms at this time. 02/04 16:48 Order name: CBC with Diff; Complete Time: 17:44 rt 02/04 16:48 Order name: CMP; Complete Time: 17:57 rt 02/04 16:48 Order name: Type And Screen; Complete Time: 18:27 rt 02/04 16:48 Order name: PT-INR; Complete Time: 17:44 rt 02/04 16:48 Order name: Ptt, Activated; Complete Time: 17:44 rt 02/04 17:34 Order name: Abdomen ; Complete Time: 17:44 EDMS Administered Medications: 18:49 Drug: Cefepime IVPB 2 grams IVPB at 200 ml/hr once over 30 mins; (mix in NS 100 mL) cm10 Route: IVPB; Rate: 200 ml/hr; Infused Over: 30 mins; Site: left wrist; 19:25 Follow up: Response: No adverse reaction; IV Status: Completed infusion; IV Intake: cm10 100ml 18:49 Drug: NS 0.9% IV 500 ml IV at bolus once Route: IV; Rate: bolus; Site: right wrist; cm10 19:25 Follow up: Response: No adverse reaction; IV Status: Completed infusion; IV Intake: cm10 500ml 19:25 Drug: vancoMYCIN IVPB 1 grams IVPB once over 2 hrs Route: IVPB; Infused Over: 2 hrs; cm10 Site: right wrist; 20:55 Follow up: Response: No adverse reaction; IV Status: Infusion continued upon admission cm10 19:25 Drug: Lactulose PO 30 grams 45 ml PO once Volume: 45 ml; Route: PO; cm10 20:01 Follow up: Response: No adverse reaction tl4 20:16 Drug: hydrALAZINE IVP 20 mg IVP once Route: IVP; Site: right wrist; cm10 20:18 Follow up: Response: No adverse reaction cm10 Disposition Summary: 02/04/23 18:29 Hospitalization Ordered Notes: Hospitalization Status: Observation rt Provider: Jin Schwarz rt Location: Telemetry/MedSurg (observation) rt Condition: Stable rt Problem: new rt Symptoms: are unchanged rt Bed/Room Type: Standard rt Room Assignment: 411(02/04/23 18:50) bd Diagnosis - Dehydration rt - Diverticulosis rt - Constipation rt Forms: - Medication Reconciliation Form rt - SBAR form rt - Leadership Thank You Letter rt Signatures: Dispatcher [employer] EDMS Sofie Gonzalez bd Adam Rodriguez MD MD rt Moraima Gilbert RN RN cm10 Sanket Arceo tl4 Corrections: (The following items were deleted from the chart) 17:34 16:49 Abdomen Pelvis W Con+CT.RAD.BRZ ordered. EDMS EDMS 18:50 18:29 rt bd
[2023-02-04] MEDS ORDERED: VANCOMYCIN 1 GM/VIAL ONE (18:39)
[2023-02-04] MEDS ORDERED: NA CHLORIDE 0.9% 100 ML ONE (18:40)
[2023-02-04] MEDS ORDERED: NA CHLORIDE 0.9% 500 ML ONE (18:40)
[2023-02-04] MEDS ORDERED: CEFEPIME 2 GM VIAL ONE (18:40)
[2023-02-04] MEDS ORDERED: NA CHLORIDE 0.9% 250 ML ONE (18:40)
[2023-02-04] MEDS ORDERED: HYDRALAZINE HCL 20 MG/ML VIAL ONE (18:40)
[2023-02-04] MEDS ORDERED: LACTULOSE 20 GM/30 ML UCUP ONE (18:41)
[2023-02-04] MEDS: NA CHLORIDE 0.9% 1,000 ML IV SCH (21:33)
[2023-02-04] MEDS: HYDRALAZINE HCL 25 MG TABLET PO SCH (21:33)
[2023-02-05] MEDS: HYDRALAZINE HCL 20 MG/ML VIAL IV PRN (03:35)
[2023-02-05] MEDS: NA CHLORIDE 0.9% 1,000 ML IV SCH ×3 (03:36→23:55)
[2023-02-05 07:23] LABS: Absolute Lymphocytes (CBC) 1.2 K/uL (0.7-4.9); Hematocrit 27.1 % (36.0-45.0); Lymphocytes % 16.2 % (15.3-44.8); MCV 84.8 fL (80-100); MPV 7.4 fL (7.6-11.3); Platelets 240 thou/uL (152-406)
[2023-02-05 07:27] LABS: Potassium 3.4 mEq/L (3.5-5.1)
[2023-02-05] MEDS: HYDRALAZINE HCL 25 MG TABLET PO SCH ×3 (08:49→20:12)
[2023-02-05] MEDS: Ciprofloxacin 200mg IV 200 MG/100 ML IV.SOLN. IV SCH (17:16)
--- NOTE | 2023-02-05 18:50 | PN ---
The patient states she feels somewhat better today. After the lactulose, she has had some diarrhea. Her CT showed colitis with significant stool retention. We will start her on IV antibiotics with Fl agyl and Cipro. Obtain KUB in the morning, and if improved, will probably discharge. HR/MODL Voice ID: [id number] Report ID: [id number]
[2023-02-05 20:22] VITALS: BMI 19.9
[2023-02-05] MEDS: METRONIDAZOLE 500mg IVPB 500 MG/100 ML BAG IV SCH (23:55)
[2023-02-06] MEDS: HYDRALAZINE HCL 20 MG/ML VIAL IV PRN ×2 (00:03→06:40)
[2023-02-06] MEDS: Ciprofloxacin 200mg IV 200 MG/100 ML IV.SOLN. IV SCH (05:39)
[2023-02-06] MEDS ORDERED: PANTOPRAZOLE 40MG TABLET PO SCH (07:30)
[2023-02-06 07:37] LABS: Absolute Lymphocytes (CBC) 1.3 K/uL (0.7-4.9); Hematocrit 25.9 % (36.0-45.0); Lymphocytes % 19.8 % (15.3-44.8); MCV 84.4 fL (80-100); MPV 7.7 fL (7.6-11.3); Platelets 224 thou/uL (152-406); RBC Red Blood Cell Count 3.06 M/uL (3.86-4.86)
[2023-02-06 07:57] LABS: Potassium 3.3 mEq/L (3.5-5.1)
[2023-02-06] MEDS ORDERED: POTASSIUM 25 MEQ EFFERV TAB PO ONE (08:12)
[2023-02-06] MEDS: HYDRALAZINE HCL 25 MG TABLET PO SCH ×2 (08:28→13:41)
[2023-02-06 08:35] VITALS: BP 141/60; TEMP 97.9
[2023-02-06 08:36] VITALS: O2SAT 97
--- NOTE | 2023-02-06 09:50 | RAD REPORT ---
EXAM DESCRIPTION: RAD - Abdomen 1 View (KUB) - 02/06/2023 9:43 am CLINICAL HISTORY: Abdomen pain FINDINGS: The bowel gas pattern is unremarkable. Prominent splenic arterial calcification present. Mild rotoscoliosis lumbar spine
[2023-02-06] MEDS: NA CHLORIDE 0.9% 1,000 ML IV SCH (11:29)
[2023-02-06] MEDS: METRONIDAZOLE 500mg IVPB 500 MG/100 ML BAG IV SCH (12:00)
--- NOTE | 2023-02-06 19:02 | PN ---
Date of Progress Note: 02/06/2023 Subjective: The patient states she feels considerably better. Bowel movements apparently back to he r usual pattern. Her abdomen is soft. She was hydrated. Repeat KUB did not show an excessive amoun t of stool retention. I feel she can be discharged, adding stool softener to her regimen. She state s she drinks plenty of water. She was seen in followup next week with the possibility of colonoscopy somewhere down the line. HR/MODL Voice ID: [id number] Report ID: [id number]
== END 2023-02-06 15:54 | disposition home or self-care (01) | DRG 392 ==
LOC: ER 16:29 → ERHOLD 18:39 → 4TH 19:44 → OBSVTOIN 02-06 10:55
PROVIDERS: ADMIT Family Medicine; ATTEND Family Medicine
DX: K59.00 Constipation, unspecified (principal); E86.0 Dehydration; I10 Essential (primary) hypertension; K52.9 Noninfective gastroenteritis and colitis, unspecified; K57.90 Diverticulosis of intestine, part unspecified, without perforation or abscess without bleeding; Z88.0 Allergy status to penicillin; Z88.2 Allergy status to sulfonamides; Z88.8 Allergy status to other drugs, medicaments and biological substances; Z91.041 Radiographic dye allergy status; Z90.710 Acquired absence of both cervix and uterus
CPT/HCPCS: 36415; 74018; 74176; 80048; 80053; 85025; 85610; 85730; 86850; 86900; 86901; 97116; 97161; 99285; G0378; J0360; J0692; J0744; J7030; J7040; J7050

== ENCOUNTER 2024-02-07 17:20 | Emergency (ER) | payer OTHER ==
--- OUTSIDE RECORDS SUMMARY | 2024-02-07 17:23 | XMS REPORT | Continuity of Care Document ---
Author Name Unknown Address [address] [facility] [address] [place] [address] [facility] Address [address] [facility] [address] [place] [address] Care Team Providers Care Preschool Teacher'S Assistant Name Role Phone Jin Schwarz Primary Care Physician [phone] Breanna Duran Attending Clinician Unavailable CARLOS A OGLESBY Attending Clinician Carlos A Sanchez MD Attending Clinician [phone] Only, Adc Test Attending Clinician Unavailable Doctor Unassigned, [place] Attending Clinician U Bill Doss Admitting Clinician Unavailable CARLOS A OGLESBY Admitting Clinician Carlos A Sanchez MD Admitting Clinician [phone] Payers Payer Name Policy Type Policy Number Effective Date Expirati on Date Source MEDICARE PART A \T\ B [id number] 2000 00:00:00 [employer] [facility] [id number] 2016 00:00:00 Problems Condition Name Condition Details Condition Category Status Onset Date Resolution Date Last Treatment Date Treating Clinician Comments Source [id number] 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 Problem Active [facility] [id number] Carpal tunnel syndrome of right wrist Problem Active [facility] [id number] History of nephrolith iasis Problem Active [facility] [id number] Gross hematuria Problem Active [facility] [id number] Lesion of bladder Problem Active [facility] 73167313 Cystitis Problem Active [facility] 921168180 Bladder diverticul um Problem Active [facility] Allergies, Adverse Reactions, Alerts Allergy Name Allergy Type Status Severity Reaction(s) Onset Date Inactive Date Treating Clinician Comments Source Penicill ins Propensi ty to adverse reaction s to drug Active Other - See comments 09-10 00:00: 00 Causes severe chest pain [facility] Sulfa (Sulfona mide Antibiot ics) Propensi ty to adverse reaction s to drug Active Other - See comments 09-10 00:00: 00 Causes skin blisters [facility] Artifici al Tears(Hy promello se) Propensi ty to adverse reaction s to drug Active Other - See comments 09-10 00:00: 00 Causes bloodshot eyes [facility] Iodine Propensi ty to adverse reaction s to drug Active Other - See comments 09-10 00:00: 00 IV Iodine - caused kidney problems [facility] Levoflox acin Propensi ty to adverse reaction s to drug Active Other - See comments 09-10 00:00: 00 Causes leg pain [facility] ARTIFICI AL TEARS(HY PROMELLO SE) DRUG Active Med Other-Cmnt 09-10 00:00: 00 [facility] IODINE DRUG INGREDI Active [facility] 09-10 00:00: 00 [facility] LEVOFLOX ACIN DRUG INGREDI Active [facility] 09-10 00:00: 00 [facility] PENICILL INS Drug Class Active [facility] 09-10 00:00: 00 [facility] SULFA (SULFONA MIDE ANTIBIOT ICS) Drug Class Active Med [facility] 09-10 00:00: 00 [facility] [address] Drug allergy Active Unknown [facility] 12020 Drug allergy Active Unknown [facility] Iodine Iodine Active Unknown [facility] 21874 Drug allergy Active Unknown [facility] 67696 Drug allergy Active Unknown [facility] Social History Social Habit Start Date Stop Date Quantity Comments Source Exposure to SARS-CoV-2 (event) Not sure [facility] History of Tobacco Use [facility] Sex Assigned At [facility] Alcohol intake 2020-11-21 00:00:00 2020-11-21 00:00:00 Current non-drinker of alcohol (finding) [facility] Tobacco use and exposure 2016-09-10 00:00:00 2016-09-10 00:00:00 Never used [facility] Smoking Status Start Date Stop Date Source Never Smoker [facility] Medications Ordered Medication Name Filled Medication Name Start Date Stop Date Current Medication? Ordering Clinician Indication Dosage Frequency Signature (SIG) Comments Components Source Nitrofurant oin Monohyd Macro 100 MG Nitrofurant oin Monohyd Macro 100 MG 07-23 00:00: 00 No 1{capsu le_with _food} BID Nitrofuran toin Monohyd Macro 100 MG water for irrigation irrigation solution 2020-02 14:53: 00 Yes PRN, Starting on Fri11/22/20 at 0953, Until Discontinu ed, Routine, Intra-op [facility] sodium chloride (NS) injection 2020-02 14:52: 00 Yes PRN, Starting on Fri11/22/20 at 0952, Until Discontinu ed, Routine, Intra-op [facility] neomycin-po lymyxin-dex amethasone (MAXITROL) 3.5 mg/g-10,000 unit/g-0.1 % ophthalmic ointment 2020-02 0 14:52: 00 Yes PRN, Starting on Fri11/22/20 at 0952, Until Discontinu ed, Routine, Intra-op [facility] Hyaluronida se, Human Recomb. (HYLENEX) injection 2020-02 0 14:52: 00 Yes PRN, Starting on Fri11/22/20 at 0952, Until Discontinu ed, Routine, Intra-op [facility] eye block syringe 11 mL 2020-02 14:51: 00 Yes PRN, Starting on Fri11/22/20 at 0951, Until Discontinu ed, Intra-op [facility] EPINEPHrine 1:1,000 (1 mg/mL) (ADRENALIN) injection 2020-02 14:50: 00 Yes PRN, Starting on Fri11/22/20 at 0950, Until Discontinu ed, Routine, Intra-op [facility] DUOVISC (DUOVISC VISCO ELASTIC) 3 %-4 %(0.5 mL) 1 % (0.55 mL) intraocular injection 2020-02 0 14:50: 00 Yes PRN, Starting on Fri11/22/20 at 0950, Until Discontinu ed, Routine, Intra-op [facility] dexamethaso ne (DECADRON PHOSPHATE) injection 2020-02 0 14:50: 00 Yes PRN, Starting on Fri11/22/20 at 0950, Until Discontinu ed, Routine, Intra-op [facility] ceFAZolin (ANCEF) injection 2020-02 0 14:49: 00 Yes PRN, Starting on Fri11/22/20 at 0949, Until Discontinu ed, YADIRA, Intra-op [facility] carbachoL (MIOSTAT) 0.01 % intraocular injection 2020-02 0 14:49: 00 Yes PRN, Starting on Fri11/22/20 at 0949, Until Discontinu ed, Routine, Intra-op [facility] balanced salt irrig soln comb1 (BSS PLUS) ophthalmic solution 500 mL bag 2020-02 14:48: 00 Yes PRN, Starting on Fri11/22/20 at 0948, Until Discontinu ed, Routine, Intra-op [facility] mydriatic #5 ophthalmic solution 0.5 mL syringe 2020-02 14:30: 00 11-22 14:47 :00 No .5mL 0.5 mL, Left Eye, ONCE, 1 dose, On Fri11/22/20 at 0930, Routine, DSU Pre-op [facility] lactated ringers IV infusion 1,000 mL 2020-02 14:30: 00 11-22 14:45 :00 No 1000mL at 42 mL/hr, 1,000 mL, IV Infusion, ONCE, 1 dose, On Fri11/22/20 at 0930, Routine, DSU Pre-op [facility] hydroCHLORO thiazide 12.5 mg capsule 2020-02 11:58: 43 Yes 12.5mg Take 12.5 mg by mouth daily. [facility] Calcium Carbonate-M ag Hydroxid (ROLAIDS) 550-110 mg Chew 2020-02 11:58: 43 Yes 1{each} Take 1-2 Each by mouth as needed. [facility] Lidocaine Lidocaine 2019-02 00:00: 00 No 10mg [facility] Depo-Medrol (Methylpred nisolone) 40mg Depo-Medrol (Methylpred nisolone) 40mg 2019-02 00:00: 00 No 40mg [facility] hydroCHLORO thiazide 12.5 mg capsule 09-11 13:04: 15 Yes 12.5mg Take 12.5 mg by mouth daily. [facility] Calcium Carbonate-M ag Hydroxid (ROLAIDS) 550-110 mg Chew 09-11 13:04: 15 Yes 1{each} Take 1-2 Each by mouth as needed. [facility] Claritin Claritin No Claritin Diclofenac Sodium 1 % Diclofenac Sodium 1 % No Diclofenac Sodium 1 % Vital Signs Vital Name Observation Time Observation Value Comments Selena frye height 2023-07-24 14:45:00 62.5 [in_i] Comm [facility] weight 2023-07-24 14:45:00 114 [lb_av] Comm on [facility] bmi 2023-07-24 14:45:00 20.52 kg/m2 Comm on [facility] height 2023-05-15 16:00:00 62.5 [in_i] Comm on [facility] weight 2023-05-15 16:00:00 114.0 [lb_av] Co [facility] temperature 2023-05-15 16:00:00 97.8 [degF] Com [facility] bmi 2023-05-15 16:00:00 20.52 kg/m2 Comm on [facility] oximetry 2023-05-15 16:00:00 96 % Commo n [facility] respiratory rate 2023-05-15 16:00:00 18 /min [facility] blood pressure systolic 2023-05-15 16:00:00 192 mm[Hg] [facility] blood pressure diastolic 2023-05-15 16:00:00 86 mm[Hg] [facility] height 2022-10-24 13:00:00 62.5 [in_i] Comm on [facility] weight 2022-10-24 13:00:00 121.4 [lb_av] Co [facility] temperature 2022-10-24 13:00:00 98.6 [degF] Com [facility] bmi 2022-10-24 13:00:00 21.85 kg/m2 Comm on [facility] oximetry 2022-10-24 13:00:00 99 % Commo n [facility] respiratory rate 2022-10-24 13:00:00 18 /min [facility] blood pressure systolic 2022-10-24 13:00:00 132 mm[Hg] [facility] blood pressure diastolic 2022-10-24 13:00:00 68 mm[Hg] Common [facility] height 2022-08-29 11:00:00 62.5 [in_i] Comm on [facility] weight 2022-08-29 11:00:00 117 [lb_av] Comm on [facility] temperature 2022-08-29 11:00:00 97.6 [degF] Com mon [facility] bmi 2022-08-29 11:00:00 21.06 kg/m2 Comm on [facility] oximetry 2022-08-29 11:00:00 99 % Commo n [facility] respiratory rate 2022-08-29 11:00:00 18 /min [facility] blood pressure systolic 2022-08-29 11:00:00 132 mm[Hg] [facility] blood pressure diastolic 2022-08-29 11:00:00 68 mm[Hg] [facility] height 2021-08-30 10:15:00 62.5 [in_i] Comm on [facility] weight 2021-08-30 10:15:00 120.0 [lb_av] Co mmon [facility] temperature 2021-08-30 10:15:00 97.4 [degF] Com mon [facility] bmi 2021-08-30 10:15:00 21.6 kg/m2 Commo n [facility] oximetry 2021-08-30 10:15:00 98 % Commo n [facility] respiratory rate 2021-08-30 10:15:00 16 /min [facility] blood pressure systolic 2021-08-30 10:15:00 188 mm[Hg] Common [facility] blood pressure diastolic 2021-08-30 10:15:00 78 mm[Hg] [facility] height 2021-07-26 11:15:00 62.5 [in_i] Comm on [facility] weight 2021-07-26 11:15:00 121.6 [lb_av] Co [facility]mon [facility] temperature 2021-07-26 11:15:00 97.9 [degF] Com mon [facility] bmi 2021-07-26 11:15:00 21.88 kg/m2 Comm on [facility] oximetry 2021-07-26 11:15:00 96 % Commo n [facility] respiratory rate 2021-07-26 11:15:00 18 /min [facility] blood pressure systolic 2021-07-26 11:15:00 162 mm[Hg] [facility] blood pressure diastolic 2021-07-26 11:15:00 68 mm[Hg] [facility] respiratory rate 2021-05-31 09:00:00 16 /min [facility] blood pressure systolic 2021-05-31 09:00:00 233 mm[Hg] [facility] blood pressure diastolic 2021-05-31 09:00:00 102 mm[Hg] [facility] height 2021-05-31 09:00:00 62.5 [in_i] Comm on [facility] weight 2021-05-31 09:00:00 117 [lb_av] Comm on [facility] temperature 2021-05-31 09:00:00 97 [degF] Comm on [facility] bmi 2021-05-31 09:00:00 21.06 kg/m2 Comm on [facility] oximetry 2021-05-31 09:00:00 96 % Commo n [facility] height 2021-05-03 11:00:00 62.5 [in_i] Comm on [facility] weight 2021-05-03 11:00:00 117.2 [lb_av] Co [facility]mon [facility] temperature 2021-05-03 11:00:00 98.6 [degF] Com mon [facility] bmi 2021-05-03 11:00:00 21.09 kg/m2 Comm on [facility] oximetry 2021-05-03 11:00:00 99 % Commo n [facility] respiratory rate 2021-05-03 11:00:00 16 /min [facility] blood pressure systolic 2021-05-03 11:00:00 166 mm[Hg] [facility] blood pressure diastolic 2021-05-03 11:00:00 76 mm[Hg] [facility] Diastolic blood pressure 2020-11-22 16:30:00 72 mm[Hg] [facility] Heart rate 2020-11-22 16:30:00 73 /min [facility] Oxygen saturation in Arterial blood by Pulse oximetry 2020-11-22 16:30:00 100 /min [facility] Systolic blood pressure 2020-11-22 16:30:00 194 mm[Hg] [facility] Body temperature 2020-11-22 16:20:00 36.39 [place] [facility] Respiratory rate 2020-11-22 16:20:00 16 /min [facility] Body height 2020-11-21 17:07:00 162.6 cm [facility] Body weight 2020-11-21 17:07:00 51.256 kg [facility] BMI 2020-11-21 17:07:00 19.40 kg/m2 [facility] Systolic blood pressure 2020-11-22 16:30:00 194 mm[Hg] [facility] Diastolic blood pressure 2020-11-22 16:30:00 72 mm[Hg] [facility] Heart rate 2020-11-22 16:30:00 73 /min [facility] Oxygen saturation in Arterial blood by Pulse oximetry 2020-11-22 16:30:00 100 /min [facility] Body temperature 2020-11-22 16:20:00 36.39 [place] [facility] Respiratory rate 2020-11-22 16:20:00 16 /min [facility] Body height 2020-11-21 17:07:00 162.6 cm [facility] Body weight 2020-11-21 17:07:00 51.256 kg [facility] BMI 2020-11-21 17:07:00 19.40 kg/m2 [facility] Procedures Procedure Date / Time Performed Performing Clinician Source PVR 2022-08-29 00:00:00 [facility] PHACOEMULSIFICATION OF CATARACT WITH INTRAOCULAR LENS IMPLANT 2020-11-22 15:47:00 Carlos A Oglesby [facility] ASSIGNMENT OF BENEFITS 2020-11-20 19:22:12 Doctor Unassigned, [place] [facility] Encounters Start Date/Time End Date/Time Encounter Type Admission Type Attending Clinicians Care Facility Care Department Encounter ID Source 2022-08-29 10:47:00 Outpatient ST[facility] ST[facility] [id number] [facility] 2021-09-13 14:11:01 Outpatient [facility] [id number] [facility] 2021-08-14 10:59:01 Outpatient [facility] [id number] [facility] 2021-05-23 16:00:02 Outpatient [facility] ST[facility] [id number] [facility] 2021-03-14 14:35:35 Outpatient Breanna Duran [facility] STLC [id number] [facility] 2021-03-14 12:09:36 Outpatient Breanna Duran [facility] STLC [id number] [facility] 2021-03-14 12:02:34 Outpatient Breanna Duran STLMLC STLMLC [id number] [facility] 2020-12-19 03:44:32 Outpatient [facility] [id number] [facility] 2024-01-26 00:00:00 2024-01-26 00:00:00 (TEL) STLMLC STLMLC [id number] [facility] 2024-01-20 00:00:00 2024-01-20 00:00:00 ([place]) Nurse Visit STLMLC STLMLC [id number] [facility] 2023-07-24 00:00:00 2023-07-24 00:00:00 OFFICE VISIT ESTAB PT LEVEL 3 STLMLC STLMLC [id number] [facility] 2023-05-15 00:00:00 2023-05-15 00:00:00 OFFICE VISIT ESTAB PT LEVEL 3 STLMLC STLMLC [id number] [facility] 2022-10-24 00:00:00 2022-10-24 00:00:00 OFFICE VISIT ESTAB PT LEVEL 2 STLMLC STLMLC [id number] [facility] 2022-09-02 00:00:00 2022-09-02 00:00:00 (TEL) STLMLC STLMLC [id number] [facility] 2022-08-29 00:00:00 2022-08-29 00:00:00 OFFICE VISIT ESTAB PT LEVEL 3 STLMLC STLMLC [id number] [facility] 2021-08-30 00:00:00 2021-08-30 00:00:00 (PROC) Procedure STLMLC STLMLC [id number] [facility] 2021-07-26 00:00:00 2021-07-26 00:00:00 OFFICE VISIT EST PT LEVEL 3 STLMLC STLMLC [id number] [facility] 2021-06-20 00:00:00 2021-06-20 00:00:00 (PROC) Procedure STLMLC STLMLC [id number] [facility] 2021-05-31 00:00:00 2021-05-31 00:00:00 OFFICE VISIT ESTAB PT LEVEL 2 STLMLC STLMLC [id number] [facility] 2021-05-07 00:00:00 2021-05-07 00:00:00 (TEL) STLMLC STLMLC [id number] [facility] 2021-05-03 00:00:00 2021-05-03 00:00:00 OFFICE VISIT NEW PT LEVEL 2 STLMLC STLMLC [id number] [facility] 2020-11-22 09:03:00 2020-11-22 11:57:00 Hospital Encounter Carlos A Oglesby [facility] [place] [id number] [facility] 2020-11-22 10:50:00 2020-11-22 11:33:00 Surgery Carlos A Oglesby [place] [facility] [id number] [facility] 2020-11-20 14:45:00 2020-11-20 14:45:00 Outpatient R CARLOS A OGLESBY [facility] [id number] [facility] 2020-11-20 14:20:49 2020-11-20 14:35:49 Laboratory Only Only, Adc Test Carlos A Oglesby [facility] [id number] [facility] 2020-11-20 00:00:00 2020-11-20 00:00:00 Orders Only Doctor Unassigned, [place] [facility] [id number] [facility] 2020-02-07 00:00:00 2020-02-07 00:00:00 Outpatient STLMLC STLMLC [id number] [facility] 2020-02-07 00:00:00 2020-02-07 00:00:00 Outpatient STLMLC STLMLC [id number] [facility] 2019-12-23 00:00:00 2019-12-23 00:00:00 Outpatient STLMLC STLMLC [id number] [facility]
[2024-02-07] MEDS ORDERED: cloNIDine HCL 0.1 MG TAB ONE (18:18)
--- NOTE | 2024-02-07 19:12 | RAD REPORT ---
EXAMINATION: Forearm Right CLINICAL INDICATION: Female, 88 years old. large skin tear;Pain COMPARISON: No prior exam. FINDINGS: No acute fracture. No malalignment/dislocation. No significant focal degenerative change. Other: n/a IMPRESSION: No acute osseous abnormality.
--- NOTE | 2024-02-07 20:23 | ER ---
Nurse's Notes [facility] Name: Camilla Hutchison Age: 88 yrs Sex: Female : 1935 Arrival Date: 02/07/2024 Time: 17:20 Bed 5 Private MD: Diagnosis: Hypertensive heart disease without heart failure;Skin Tear right Forearm Presentation: 02/06 17:25 Chief complaint: Patient states: skin tear to right forearm , lid of the chicken coop iw fell on her. Coronavirus screen: At this time, the client does not indicate any symptoms associated with coronavirus-19. Ebola Screen: No symptoms or risks identified at this time. Initial Sepsis Screen: Does the patient meet any 2 criteria? No. Patient's initial sepsis screen is negative. Does the patient have a suspected source of infection? No. Patient's initial sepsis screen is negative. Risk Assessment: Do you want to hurt yourself or someone else? Patient reports no desire to harm self or others. 17:25 Method Of Arrival: Ambulatory iw 17:25 Acuity: EUGENIO 4 iw 17:27 Onset of symptoms. iw Historical: - Allergies: 17:26 Ibuprofen; iw 17:26 Iodinated Contrast Media - IV Dye; iw 17:26 Levaquin; iw 17:26 PENICILLINS; iw 17:26 Sulfa (Sulfonamide Antibiotics); iw - PMHx: 17:26 Hypertension; iw - PSHx: 17:26 Total abdominal hysterectomy; iw - Immunization history:: Adult Immunizations not up to date. - Infectious Disease History:: Denies. - Social history:: Smoking status: Patient denies any tobacco usage or history of. Screenin:03 [facility] ED Fall Risk Assessment (Adult) History of falling in the last 3 months, ph including since admission No falls in past 3 months (0 pts) Confusion or Disorientation No (0 pts) Intoxicated or Sedated No (0 pts) Impaired Gait No (0 pts) Mobility Assist Device Used No (0 pt) Altered Elimination No (0 pt) Score/Fall Risk Level 0 - 2 = Low Risk Oriented to surroundings, Maintained a safe environment, Hourly rounding (assess needs \\T\\ fall precautionary measures) done. Abuse screen: Denies threats or abuse. Denies injuries from another. Nutritional screening: No deficits noted. Tuberculosis screening: No symptoms or risk factors identified. Assessment: 18:00 General: Appears in no apparent distress. comfortable, well groomed. Pain: Complains of ph pain in dorsal aspect of right forearm. Neuro: Level of Consciousness is awake, alert, obeys commands, Oriented to person, place, time, situation. Cardiovascular: Capillary refill < 3 seconds in bilateral fingers Patient's skin is warm and dry. Respiratory: Airway is patent Respiratory effort is even, unlabored. Derm: Skin is pink, warm \\T\\ dry. Musculoskeletal: Circulation, motion, and sensation intact. Range of motion: intact in all extremities. Injury Description: Large skin tear to R forearm. 20:18 General: Appears in no apparent distress. comfortable, Behavior is calm, cooperative, bm8 appropriate for age. Pain: Complains of pain in right arm Pain currently is 2 out of 10 on a pain scale. Quality of pain is described as burning, Pain began suddenly. Neuro: No deficits noted. Level of Consciousness is awake, alert, obeys commands, Oriented to person, place, time, situation, Appropriate for age. Cardiovascular: Denies chest pain, lightheadedness, shortness of breath, Heart tones S1 S2 present Capillary refill < 3 seconds in bilateral fingers Patient's skin is warm and dry. Respiratory: Airway is patent Trachea midline Respiratory effort is even, unlabored, Respiratory pattern is regular, symmetrical, Breath sounds are clear bilaterally. GI: No signs and/or symptoms were reported involving the gastrointestinal system. : No signs and/or symptoms were reported regarding the genitourinary system. EENT: No signs and/or symptoms were reported regarding the EENT system. Derm: near full forearm skin tear. Musculoskeletal: Circulation, motion, and sensation intact. Range of motion: intact in all extremities, Denies. 20:18 Reassessment: pt declined blood work but allowed an EKG. PT is [id number]. bm8 Vital Signs: 17:25 BP 231 / 84; Pulse 93; Resp 16; Temp 97.3; Weight 52.16 kg; Height 5 ft. 4 in. ; iw 18:13 BP 201 / 82; Pulse 82; Resp 18; Pulse Ox 99% on R/A; ph 20:18 BP 167 / 82; Pulse 71; Resp 17; Temp 97.3; Pulse Ox 100% ; Pain 2/10; bm8 17:25 Body Mass Index 19.74 (52.16 kg, 162.56 cm) iw 20:18 Pain Scale: Adult bm8 Bola Coma Score: 20:18 Eye Response: spontaneous(4). Motor Response: obeys commands(6). Verbal Response: bm8 oriented(5). Total: 15. ED Course: 17:21 Patient arrived in ED. jj6 17:23 Gary Garcia PA is PHCP. cp 17:24 Gary Salazar MD is Attending Physician. cp 17:26 Triage completed. iw 17:26 Arm band placed on. iw 17:28 Amirah Metzger, KATHYA is Primary Nurse. ph 18:52 XRAY Forearm RIGHT In Process Unspecified. EDMS 19:04 Patient has correct armband on for positive identification. Bed in low position. Call ph light in reach. Side rails up X 1. Pulse ox on. NIBP on. Door closed. Noise minimized. Warm blanket given. Pillow given. 20:18 Provided Education on: post er care, wound care and when to follow up with PCP. bm8 20:18 No provider procedures requiring assistance completed. Patient did not have IV access bm8 during this emergency room visit. 20:18 EKG done, by ED staff, reviewed by Gary COTO. bm8 20:38 Wound care: to skin tear located on right arm was soaked in Hibiclens solution, Patient kmf tolerated well. applied 7 steri- strips and bacitracin. 20:40 Dressings: non-adherent dressing x 1 right arm Steri strips 1/2 " 1/4 ". kmf Administered Medications: 18:33 Drug: cloNIDine PO 0.2 mg PO once; if systolic pressure remains >200 Route: PO; ph 20:21 Follow up: Response: No adverse reaction bm8 18:46 CANCELLED (Physician Discretion): [id number] mg PO once cp 20:22 Not Given (pt declined IVv): ns 0.9% 250 ml IV at bolus once; to be given as a bolus bm8 over 30 minutes Medication: 19:04 VIS not applicable for this client. ph Outcome: 20:22 Discharge ordered by . cp 20:45 Discharged to home ambulatory, with personal cane bm8 20:45 Condition: stable 20:45 Discharge instructions given to patient, Instructed on discharge instructions, follow up and referral plans. medication usage, wound care, Demonstrated understanding of instructions, follow-up care, medications, 20:46 Patient left the ED. bm8 Signatures: Dispatcher [employer] EDHemalatha Young, RN Amirah George RN RN Gary Lewis PA PA cp Jeffries, Jennifer jj6 Forrester, Kelsey Maroul [facility] Martin Hodge RN RN bm8 Corrections: (The following items were deleted from the chart) 17:27 17:25 Resp 16bpm; Temp 97.3F; 52.16 kg; Height 5 ft. 4 in.; BMI: 19.7; iw jeferson
--- NOTE | 2024-02-07 20:23 | EDPHYS ---
Physician Documentation [facility] Name: Camilla Hutchison Age: 88 yrs Sex: Female : 1935 Arrival Date: 02/07/2024 Time: 17:20 Bed 5 Private MD: ED Physician Gary Salazar HPI: 02/06 17:40 This 88 yrs old Female presents to ER via Ambulatory with complaints of Arm Injury, cp Laceration To Arm. 17:40 The patient or guardian complains of injury. cp 17:40 The complaints affect the right forearm. Context: resulted from a direct blow, fallen cp chicken coop. Onset: The symptoms/episode began/occurred today. Treatment prior to arrival includes: dressing. Associated signs and symptoms: The patient has no apparent associated signs or symptoms. Triage blood pressure 231/84. Patient with known hx of htn. Prescribed unknown medication but admits only taking medication when blood pressure is high. No complaints headache, vision changes, chest pain. Historical: - Allergies: 17:26 Ibuprofen; iw 17:26 Iodinated Contrast Media - IV Dye; iw 17:26 Levaquin; iw 17:26 PENICILLINS; iw 17:26 Sulfa (Sulfonamide Antibiotics); iw - PMHx: 17:26 Hypertension; iw - PSHx: 17:26 Total abdominal hysterectomy; iw - Immunization history:: Adult Immunizations not up to date. - Infectious Disease History:: Denies. - Social history:: Smoking status: Patient denies any tobacco usage or history of. ROS: 17:45 MS/extremity: Positive for laceration, swelling, tenderness, of the right forearm, cp 17:45 Constitutional: Negative for body aches, chills, fever, cp 17:45 Cardiovascular: Negative for chest pain, 17:45 Respiratory: Negative for shortness of breath, 17:45 Abdomen/GI: Negative for abdominal pain, vomiting, diarrhea, constipation, 17:45 Neuro: Negative for dizziness, headache, weakness, 17:45 All other systems are negative, Exam: 17:45 Constitutional: The patient appears in no acute distress, alert, awake, cp non-diaphoretic, non-toxic, well developed, frail, 17:45 Head/Face: Normocephalic, atraumatic. cp 17:45 Eyes: Periorbital structures: appear normal, Pupils: equal, round, and reactive to light and accomodation, Conjunctiva: normal, no exudate, no injection, Lids and lashes: appear normal, bilaterally, 17:45 ENT: External ear(s): are unremarkable, Nose: is normal, Mouth: Lips: moist, Oral mucosa: moist, Posterior pharynx: Airway: no evidence of obstruction, patent, 17:45 Chest/axilla: Inspection: normal, 17:45 Cardiovascular: Rate: normal, Pulses: Pulses are 2+ in right radial artery. Edema: is not appreciated, JVD: is not appreciated, 17:45 Respiratory: the patient does not display signs of respiratory distress, Respirations: normal, no use of accessory muscles, no retractions, labored breathing, is not present, Breath sounds: are clear throughout, no decreased breath sounds, no stridor, no wheezing, 17:45 Abdomen/GI: Inspection: abdomen appears normal, Palpation: abdomen is soft and non-tender, in all quadrants, 17:45 Musculoskeletal/extremity: Extremities: noted in the right forearm: ecchymosis, tenderness, mild swelling, large skin tear noted with mild bleeding, ROM: full active range of motion, in the right shoulder and right elbow and right wrist, the left hand and left arm Sensation intact. 17:45 Neuro: Orientation: to person, place \T\ time. Mentation: is normal, Motor: moves all fours, strength is normal, Sensation: is normal, 20:20 ECG was reviewed by the Attending Physician. Vital Signs: 17:25 BP 231 / 84; Pulse 93; Resp 16; Temp 97.3; Weight 52.16 kg; Height 5 ft. 4 in. ; iw 18:13 BP 201 / 82; Pulse 82; Resp 18; Pulse Ox 99% on R/A; ph 20:18 BP 167 / 82; Pulse 71; Resp 17; Temp 97.3; Pulse Ox 100% ; Pain 2/10; bm8 17:25 Body Mass Index 19.74 (52.16 kg, 162.56 cm) iw 20:18 Pain Scale: Adult bm8 [place] Coma Score: 20:18 Eye Response: spontaneous(4). Motor Response: obeys commands(6). Verbal Response: bm8 oriented(5). Total: 15. MDM: 17:30 Medical Screening Exam initiated 20:22 Data reviewed: vital signs, nurses notes, EKG, radiologic studies, plain films, and as cp a result, I will discharge patient. 20:22 I considered the following discharge prescriptions or medication management in the emergency department Medications were administered in the Emergency Department. See MAR. Independent interpretation of the following test(s) in the Emergency Department EKG: See my EKG interpretation above. Care significantly affected by the following chronic conditions: Hypertension. Counseling: I had a detailed discussion with the patient and/or guardian regarding the historical points, exam findings, and any diagnostic results supporting the discharge/admit diagnosis, radiology results, the need for outpatient follow up, a family practitioner, to return to the emergency department if symptoms worsen or persist or if there are any questions or concerns that arise at home. Response to treatment: the patient's symptoms have markedly improved after treatment, and as a result, I will discharge patient. Refusal of service: The patient/guardian displays adequate decision making capability and despite a detailed discussion of alternatives, benefits, risks, and consequences refuses: all lab tests. ED course: blood pressure improved with meds. wound cleaned and dressed. Will discharge to home for continued monitoring with instructions to take blood pressure daily and f/u with pcp. 02/06 17:36 Order name: XRAY Forearm RIGHT; Complete Time: 20:24 02/06 20:24 Interpretation: Reviewed. 02/06 18:45 Order name: EKG; Complete Time: 18:46 02/06 17:36 Order name: Wound Care: dressing, antibiotic for large skin tear; Complete Time: 20:37 02/06 17:36 Order name: Blood Pressure Recheck; Complete Time: 18:13 02/06 18:45 Order name: EKG - Nurse/Tech; Complete Time: 20:36 02/06 18:45 Order name: O2 Per Protocol; Complete Time: 20:37 02/06 18:45 Order name: O2 Sat Monitoring; Complete Time: 20:37 cp EC:20 Rate is 73 beats/min. Rhythm is regular. PA interval is normal. QRS interval is normal. cp QT interval is normal. T waves are Inverted in lead aVR. Interpreted by me. Reviewed by me. Administered Medications: 18:33 Drug: cloNIDine PO 0.2 mg PO once; if systolic pressure remains >200 Route: PO; ph 20:21 Follow up: Response: No adverse reaction bm8 18:46 CANCELLED (Physician Discretion): [id number] mg PO once cp 20:22 Not Given (pt declined IVv): ns 0.9% 250 ml IV at bolus once; to be given as a bolus bm8 over 30 minutes Disposition: 02/07 19:13 Chart complete. cp Disposition Summary: 02/07/24 20:22 Discharge Ordered Notes: Location: Home cp Problem: new cp Symptoms: have improved cp Condition: Stable cp Diagnosis - Hypertensive heart disease without heart failure cp - Skin Tear right Forearm cp Followup: cp - With: Private Physician - When: 2 - 3 days - Reason: Wound Recheck, hypertension Discharge Instructions: - Discharge Summary Sheet cp - Hypertension, Adult cp - Skin Tear cp - Aspirin and Your Heart cp - Form - Blood Pressure Record Sheet cp - How to Take Your Blood Pressure cp Forms: - Medication Reconciliation Form cp - Antibiotic Education cp - Prescription Opioid Use cp - Patient Portal Instructions cp - Leadership Thank You Letter cp Addendum: 02/12/2024 12:46 Co-signature as Attending Physician, Gary Salazar MD I agree with the assessment and c cochran plan of care. Signatures: Dispatcher [employer] Gary Kramer MD MD cha Williams, Irene, RN RN Amirah Metzger RN RN Gary Lewis PA PA cp McDonald, Brad RN bm8 Corrections: (The following items were deleted from the chart) 02/06 18:46 18:46 amLODIPine PO 10 mg PO once ordered. cp cp 18:46 18:46 BASIC METABOLIC PANEL+C.LAB.BRZ ordered. EDMS EDMS 18:46 18:46 CBC+H.LAB.BRZ ordered. EDMS EDMS 18:46 18:46 HEPATIC FUNCTION+C.LAB.BRZ ordered. EDMS EDMS 18:46 18:46 MAGNESIUM+C.LAB.BRZ ordered. EDMS EDMS 18:46 18:46 PROTIME (+INR)+COAG.LAB.BRZ ordered. EDMS EDMS 18:46 18:46 Urinalysis+U.LAB.BRZ ordered. EDMS EDMS 20:36 18:45 Cardiac monitoring ordered. cp bm8 20:37 18:45 IV Saline Lock ordered. cp bm8 20:37 18:45 Labs collected and sent ordered. cp bm8 02/07 19:07 19:06 MS/extremity: Positive for laceration, swelling, tenderness, of the right cp forearm, cp
[2024-02-07 20:51] VITALS: TEMP 97.3
[2024-02-07 20:53] VITALS: BP 167/82; O2SAT 100
--- NOTE | 2024-02-08 13:05 | EKG ---
Test Date: 2024-02-07 Test Time: 20:14:47 [employer] Plaster: MELLY MEASUREMENT RESULTS: Intervals: Rate: 73 NC: 172 QRSD: 72 QT: 416 QTc: 458 [place]: P: 84 NC: 172 QRS: -35 T: 55 INTERPRETIVE STATEMENTS: Normal sinus rhythm Left axis deviation Abnormal ECG Compared to ECG 01/30/2020 16:26:37 Left-axis deviation now present Myocardial infarct finding no longer present Electronically Signed On 02-08-24 13:03:44 SURVEY TECHNOLOGIST by César Hills
== END 2024-02-07 20:46 | disposition home or self-care (01) ==
LOC: ER 17:20
DX: I11.9 Hypertensive heart disease without heart failure (principal); S51.811A Laceration without foreign body of right forearm, initial encounter; I10 Essential (primary) hypertension
CPT/HCPCS: 93005; 99284